=== PATIENT | male | born 1960 | race Caucasian/White ===

== ENCOUNTER 2017-11-29 09:07 | Day surgery (SDC) | END 2017-11-29 12:22 | disposition home or self-care (01) ==

== ENCOUNTER 2018-11-10 04:49 | Inpatient (IN) | payer OTHER ==
[~2018-11-10] VITALS: Ht 172.7 cm; Wt 70.2 kg
[~2018-11-10 04:49] MED LIST: LISI-313 PO; OMEP40CA6 PO; TEMA15CA PO
[2018-11-10] MEDS ORDERED: ONDANSETRON 4 MG INJ IV PRN ×2 (05:30→06:00)
[2018-11-10] MEDS ORDERED: ACETAMINOPHEN 325 MG TAB PO PRN (05:30)
[2018-11-10] MEDS ORDERED: NACL 0.9% 3 ML SYG IV SCH (06:00)
--- NOTE | 2018-11-10 06:15 | ERD ---
ER Documentation Chief Complaint Chief Complaint bib pa from er to er, direct admit, awaiting bed, sob, pna, atelectasis, HPI 58-year-old male transferred here from [place] emergency room for admission. He presented to them with a nonproductive cough for 3 weeks that was worsening. He reports mostly a dry cough. No associated chest pain, shortness of breath, fevers or chills. He has been having some associated night sweats. Denies any history of heart problems. ROS All systems reviewed and are negative except as per history of present illness. Medications Home Meds Reported Medications Temazepam* (Temazepam*) 15 Mg Capsule, 15 MG PO DAILY 11/22/13 Omeprazole* (Omeprazole*) 40 Mg Capsule.dr, 40 MG PO DAILY 11/22/13 Lisinopril* (Lisinopril*) 5 Mg Tablet, 5 MG PO DAILY 11/22/13 Allergies Allergies: Coded Allergies: No Known Allergy (Unverified , 11/22/13) PMhx/Soc History of Surgery: Yes (RIGHT SHOULDER X3) Anesthesia Reaction: No Hx Neurological Disorder: No Hx Respiratory Disorders: No Hx Cardiac Disorders: Yes (HTN) Hx Psychiatric Problems: No Hx Miscellaneous Medical Probl: No Hx Alcohol Use: Yes Hx Substance Use: No Hx Tobacco Use: Yes Smoking Status: Former smoker FmHx Family History: No diabetes Physical Exam Vitals Vital Signs Date Temp Pulse Resp B/P (MAP) Pulse Ox O2 O2 Flow FiO2 Time Delivery Rate 11/10/18 Nasal 4.0 05:09 Cannula 11/10/18 98.7 89 19 121/72 98 04:57 (88) Physical Exam Const: No acute distress Head: Atraumatic Eyes: Normal Conjunctiva ENT: Normal External Ears, Nose and Mouth. Neck: Full range of motion. No meningismus. Resp: Diminished breath sounds at the right lung base to the mid lung. No wheezing, rales, rhonchi. Clear left lung. Cardio: Regular rate and rhythm, no murmurs. 2+ distal pulses Abd: Soft, non tender, non distended. Normal bowel sounds Skin: No petechiae or rashes Back: No midline or flank tenderness Ext: No cyanosis, or edema Neur: Awake and alert Psych: Normal Mood and Affect Results 24 hrs Current Medications Medications Dose Sig/Rudy Start Time Status Last (Trade) Ordered Route PRN Stop Time Admin Dose Reason Admin Ondansetron 4 mg ER BRIDGE 11/10/18 HCl (Zofran PRN IV 05:30 Inj) NAUSEA/VOMITI 11/11/18 05:29 NG 650 mg ER BRIDGE 11/10/18 11/10/18 Acetaminophen PRN PO 05:30 05:27 (Tylenol .MILD PAIN 11/11/18 05:29 Tab) 1-3 OR TEMP IV Flush 3 ml PER 11/10/18 (NS 3 ml) PROTOCOL IV 06:00 Ondansetron 4 mg Q6H PRN 11/10/18 HCl (Zofran IV 06:00 Inj) NAUSEA/VOMITI NG 650 mg Q6H PRN 11/10/18 Acetaminophen PO .PAIN 1-3 06:00 (Tylenol OR TEMP Tab) Enoxaparin 40 mg DAILY SC 11/10/18 Sodium 09:00 (Lovenox) Albuterol/ 3 ml Q2H RESP 11/10/18 Ipratropium THERAPY PRN 06:00 (Duoneb) HHN SHORTNESS OF BREATH Lisinopril 5 mg DAILY PO 11/10/18 (Zestril) 09:00 40 mg DAILY PO 11/10/18 DC Miscellaneous 09:00 Information 11/10/18 09:00 40 mg DAILY@06 11/10/18 Pantoprazole PO 06:00 (Protonix Tab) Procedures/MDM Patient was sent here for admission for large right left pleural effusion I reviewed his workup done at the previous hospital. It seems that he had a right pleural effusion but also leukocytosis. Pneumonia was not suspected. I spoke with the admitting hospitalist, , who is aware of the patient and will admit to telemetry for further workup and management. Departure Diagnosis: Primary Impression: Pleural effusion, right Additional Impression: Leukocytosis Leukocytosis type: unspecified Qualified Codes: D72.829 - Elevated white blood cell count, unspecified Condition: Serious GREGG PALACIO MD Nov 10, 2018 06:15
[2018-11-10] MEDS: morphine 2 MG INJ IV PRN ×4 (08:18→22:08)
[2018-11-10 08:53] VITALS: BP 108/57; PULSE 85; RESP 18
[2018-11-10] MEDS ORDERED: LISINOPRIL 5 MG TAB PO SCH (09:00)
[2018-11-10] MEDS ORDERED: NON-FORMULARY/PATIENT OWN MED (Omeprazole* 40 MG) PO SCH (09:00)
[2018-11-10] MEDS ORDERED: ENOXAPARIN 40 MG/0.4 ML SYG SC SCH (09:00)
[2018-11-10] MEDS: PANTOPRAZOLE (EC) 40 MG TAB PO SCH (09:13)
--- NOTE | 2018-11-10 09:16 | HP ---
Date/Time of Note Date/Time of Note DATE: 11/10/18 TIME: 09:02 Assessment/Plan VTE Prophylaxis Pharmacological prophylaxis: NA/contraindicated Pharm contraindication: low risk/ambulating, other (Patient awaiting for a thoracentesis so no blood thinner for now) Lines/Catheters IV Catheter Type (from Nrs): Saline Lock Assessment/Plan Assessment/Plan 1. Shortness of breath, secondary to pleural effusion -Ultrasound-guided diagnostic and therapeutic thoracentesis has been ordered -Sample will be sent for infectious workup and also for cytology -Chest CT and a 2D echo 2. Hypertension: Continue home meds, adjust as needed 3. History of C-diff and tooth infection: No acute issue 4. Chronic back pain: Pain management Results 24hrs Laboratory Tests Test 11/10/18 06:11 11/10/18 07:13 Creatine Kinase 52 Creatine Kinase Index 0.5 Creatinine Kinase MB (Mass) 0.24 Troponin I < 0.012 Prothrombin Time 15.8 H Prothrombin Time Ratio 1.2 INR International Normalized Ratio 1.25 HPI/ROS Admit Date/Time Admit Date/Time Hx of Present Illness This is a 4-year-old male with a history of hypertension, chronic back pain, tooth infection and C-diff who presents an outside hospital complaining of cough. He was transferred to [facility] for insurance reasons. He said his cough started 3 months ago. It has been dry for the most part, but occasionally productive of small brownish sputum. No chest pain. Denied fever/chills, nausea/vomiting. He denied recent travel or sick contact. He said he has been jogging regularly and has not noticed shortness of breath or chest pain, although reports chest discomfort every time he coughs. Denied night sweats or weight loss. Chest x-ray at the outside facility shows sided pleural effusion. PMH/Family/Social Past Medical History Medical History: other (See HPI) Medications Current Medications Ondansetron HCl (Zofran Inj) 4 mg ER BRIDGE PRN IV NAUSEA/VOMITING; Start 11/10/18 at 05:30; Stop 11/11/18 at 05:29 Acetaminophen (Tylenol Tab) 650 mg ER BRIDGE PRN PO .MILD PAIN 1-3 OR TEMP Last administered on 11/10/18at 05:27; Admin Dose 650 MG; Start 11/10/18 at 05:30; Stop 11/11/18 at 05:29 IV Flush (NS 3 ml) 3 ml PER PROTOCOL IV ; Start 11/10/18 at 06:00 Ondansetron HCl (Zofran Inj) 4 mg Q6H PRN IV NAUSEA/VOMITING; Start 11/10/18 at 06:00 Acetaminophen (Tylenol Tab) 650 mg Q6H PRN PO .PAIN 1-3 OR TEMP; Start 11/10/18 at 06:00 Enoxaparin Sodium (Lovenox) 40 mg DAILY SC ; Start 11/10/18 at 09:00 Albuterol/ Ipratropium (Duoneb) 3 ml Q2H RESP THERAPY PRN HHN SHORTNESS OF BREATH; Start 11/10/18 at 06:00 Lisinopril (Zestril) 5 mg DAILY PO ; Start 11/10/18 at 09:00 Pantoprazole (Protonix Tab) 40 mg DAILY@06 PO ; Start 11/10/18 at 06:00 Morphine Sulfate (morphine) 2 mg Q4H PRN IV pain Last administered on 11/10/18at 08:18; Admin Dose 2 MG; Start 11/10/18 at 08:00 Coded Allergies: No Known Allergy (Unverified , 11/22/13) Past Surgical History Past Surgical Hx: other (See HPI) Family History Significant Family History: no pertinent family hx Social History Alcohol Use: none Smoking Status: Former smoker Drug Use: none Exam/Review of Systems Vital Signs Vitals Vital Signs Date Temp Pulse Resp B/P (MAP) Pulse Ox O2 O2 Flow FiO2 Time Delivery Rate 11/10/18 85 18 108/57 96 Room Air 08:53 (74) 11/10/18 98.7 4.0 06:30 Exam Constitutional: alert, oriented, well developed Head: normocephalic, atraumatic Eyes: EOMI, PERRL Respiratory: clear to auscultation, normal air movement Cardiovascular: regular rate and rhythm, nl pulses Gastrointestinal: soft, non-tender Extremities: normal pulses DONN MORE MD Nov 10, 2018 09:12
[2018-11-10] MEDS ORDERED: LISI-471 PO (10:27)
[2018-11-10] MEDS ORDERED: AMLO5TAB4 PO (10:28)
[2018-11-10] MEDS ORDERED: LEVO50TA7 PO (10:28)
[2018-11-10] MEDS ORDERED: LORA1TAB PO (10:30)
[2018-11-10] MEDS ORDERED: LORAZEPAM 2 MG INJ ONE (11:07)
[2018-11-10] MEDS ORDERED: LORAZEPAM 2 MG INJ IV ONE (11:30)
--- NOTE | 2018-11-10 12:15 | PN ---
Date/Time of Note Date/Time of Note DATE: 11/10/18 TIME: 12:12 Assessment/Plan VTE Prophylaxis SCD applied (from Nsg): Yes Pharmacological prophylaxis: NA/contraindicated Pharm contraindication: low risk/ambulating Lines/Catheters IV Catheter Type (from Nrsg): Saline Lock Assessment/Plan Hospital Course 1. Acute respiratory distress secondary to pleural effusion Ultrasound of chest shows small left pleural effusion and possible loculated right pleural effusion, thoracentesis unable to be done Follow-up on CT chest and 2D echo Pulmonary consultation obtained 2. Hypertension: Continue home meds, adjust as needed 3. History of C-diff and tooth infection: No acute issue 4. Chronic back pain: Pain management Prophylaxis: SCDs Subjective 24 Hr Interval Summary Constitutional: no complaints Exam/Review of Systems Exam Vitals Vital Signs Date Temp Pulse Resp B/P (MAP) Pulse Ox O2 O2 Flow FiO2 Time Delivery Rate 11/10/18 98.7 87 18 112/72 100 Nasal 4.0 09:13 (85) Cannula Constitutional: alert, oriented Respiratory: clear to auscultation Cardiovascular: regular rate and rhythm Gastrointestinal: soft; No distended Musculoskeletal: nl extremities to inspection Results Results 24hrs Laboratory Tests Test 11/10/18 06:11 11/10/18 07:13 Creatine Kinase 52 Creatine Kinase Index 0.5 Creatinine Kinase MB (Mass) 0.24 Troponin I < 0.012 Prothrombin Time 15.8 H Prothrombin Time Ratio 1.2 INR International Normalized Ratio 1.25 Medications Medication Current Medications Ondansetron HCl (Zofran Inj) 4 mg ER BRIDGE PRN IV NAUSEA/VOMITING; Start 11/10/18 at 05:30; Stop 11/11/18 at 05:29 Acetaminophen (Tylenol Tab) 650 mg ER BRIDGE PRN PO .MILD PAIN 1-3 OR TEMP Last administered on 11/10/18at 05:27; Admin Dose 650 MG; Start 11/10/18 at 05:30; Stop 11/11/18 at 05:29 IV Flush (NS 3 ml) 3 ml PER PROTOCOL IV ; Start 11/10/18 at 06:00 Ondansetron HCl (Zofran Inj) 4 mg Q6H PRN IV NAUSEA/VOMITING; Start 11/10/18 at 06:00 Acetaminophen (Tylenol Tab) 650 mg Q6H PRN PO .PAIN 1-3 OR TEMP; Start 11/10/18 at 06:00 Albuterol/ Ipratropium (Duoneb) 3 ml Q2H RESP THERAPY PRN HHN SHORTNESS OF BREATH; Start 11/10/18 at 06:00 Lisinopril (Zestril) 5 mg DAILY PO ; Start 11/10/18 at 09:00 Pantoprazole (Protonix Tab) 40 mg DAILY@06 PO Last administered on 11/10/18at 09:13; Admin Dose 40 MG; Start 11/10/18 at 06:00 Morphine Sulfate (morphine) 2 mg Q4H PRN IV pain Last administered on 11/10/18at 08:18; Admin Dose 2 MG; Start 11/10/18 at 08:00 SHANNON DUBOSE Nov 10, 2018 12:15
[2018-11-10] MEDS ORDERED: CEFTRIAXONE 1 GM/50 ML (PMX) 50 ML IVPB SCH (16:00)
[2018-11-10] MEDS: AZITHROMYCIN 500MG/NS (PMX) 250 ML IVPB SCH (17:13)
[2018-11-10 17:45] VITALS: BP 118/75; PULSE 106; RESP 18
[2018-11-10 18:48] VITALS: Ht 172.7 cm; Wt 70.2 kg
[2018-11-10] MEDS: ACETAMINOPHEN 325 MG TAB PO PRN (20:02)
[2018-11-10 20:09] VITALS: BP 115/65; PULSE 93
--- NOTE | 2018-11-10 20:27 | RADRPT ---
Echocardiogram Report Patient Name: SRINATH SMITHPatient ID: [id number] : 1960 (58y 7m)Study Date: 11/10/2018 7:07:46 AM Gender: MAccession #: [id number] Tech: Ellis Woods RDCS Location: [facility] Ref.Physician: DONN MORE Height(Cm): BSA: Weight(Kg): Quality: AdequateAccount #: Procedures: Echocardiographic Report: Transthoracic echocardiogram with complete 2D, M-Mode, and doppler examination. Indications: Pleural Effusion. Measurements: 2D/M Mode Doppler Measurement Value Normal Range Measurement Value Normal Range LVIDd 2D 4.3 [ 4.2 - 5.8 ] cm AV Peak Nithin 1.7 [ 100.0 - 170.0 ] cm/sec LVIDs 2D 1.8 [ 2.5 - 4.0 ] cm AV Peak PG 12.0 [ 2.0 - 9.0 ] mmHg LVPWd 2D 1.2 [ 0.6 - 1.0 ] cm LVOT Peak Nithin 1.3 [ 70.0 - 110.0 ] cm/sec IVSd 2D 1.2 [ 0.6 - 1.0 ] cm LVOT Peak PG 6.0 [ 2.0 - 6.0 ] mmHg AoR Diam 2D 3.3 [ 2.6 - 3.4 ] cm MV E Peak Nithin 1.0 [ 60.0 - 130.0 ] cm/sec EDV 2D 84.9 [ 62.0 - 150.0 ] ml MV A Peak Nithin 0.8 [ 100.0 - 120.0 ] cm/sec ESV 2D 9.0 [ 21.0 - 61.0 ] ml MV E/A 1.3 [ 0.8 - 1.5 ] ratio EF 2D 89.4 [ 52.0 - 72.0 ] percent MV Decel Time 134 [ 104 - 258 ] msec LA Dimen 2D 3.6 [ 3.0 - 4.0 ] cm MV E/A 1.3 [ 0.8 - 1.5 ] ratio TR Peak Nithin 2.3 [ 100.0 - 280.0 ] cm/sec TR Peak PG 22.0 mmHg RVSP 25.0 [ 10.0 - 36.0 ] mmHg RA Pressure 3.0 mmHg Findings: Left Ventricle: Normal left ventricular systolic function. Normal left ventricular cavity size. Normal left ventricular wall thickness. Ejection fraction is visually estimated at 65 %. Tissue Doppler/Mitral Doppler indices are within normal limits. Right Ventricle: Normal right ventricular size. Normal right ventricular systolic function. Left Atrium: The left atrium is normal in size. Right Atrium: The right atrium is normal in size. Mitral Valve: Mitral valve leaflets appear mildly thickened. Mild mitral annular calcification. Trace mitral regurgitation. Aortic Valve: Normal appearance of the aortic valve. No significant aortic stenosis or insufficiency. Tricuspid Valve: Normal appearance of the tricuspid valve. Estimated peak PA systolic pressure 25 mmHg. There is trace tricuspid regurgitation. Pulmonic Valve: Pulmonic valve not well visualized. Pericardium: Normal pericardium with no significant pericardial effusion. Aorta: Normal aortic root. IVC: Normal size and normal respiratory collapse consistent with normal right atrial pressure. Conclusions: Normal left ventricular systolic function. Normal left ventricular cavity size. Normal left ventricular wall thickness. Ejection fraction is visually estimated at 65 %. Tissue Doppler/Mitral Doppler indices are within normal limits. Mitral valve leaflets appear mildly thickened. Mild mitral annular calcification. Trace mitral regurgitation. Normal appearance of the tricuspid valve. Estimated peak PA systolic pressure 25 mmHg. There is trace tricuspid regurgitation. Electronically Signed By: Unruly Ivey 2018-11-10 20:27:30 PDT
[2018-11-10] MEDS: LORAZEPAM 1 MG TAB PO PRN (21:12)
[2018-11-11 02:07] VITALS: BP 107/62; PULSE 79; RESP 18
[2018-11-11] MEDS: morphine 2 MG INJ IV PRN ×6 (02:35→22:04)
[2018-11-11] MEDS: PANTOPRAZOLE (EC) 40 MG TAB PO SCH (06:27)
[2018-11-11] MEDS ORDERED: LORAZEPAM 1 MG TAB PO ONE ×2 (06:30)
[2018-11-11] MEDS: LEVOTHYROXINE 50 MCG TAB PO SCH ×2 (07:00→09:15)
[2018-11-11 07:49] VITALS: BP 114/65; PULSE 87; RESP 17
[2018-11-11] MEDS: LISINOPRIL 20 MG TAB PO SCH (09:14)
[2018-11-11] MEDS: AMLODIPINE 5 MG TAB PO SCH (09:14)
[2018-11-11] MEDS ORDERED: CEFEPIME 2GM/50 ML (PMX) 50 ML IVPB SCH (10:00)
--- NOTE | 2018-11-11 10:41 | PN ---
Date/Time of Note Date/Time of Note DATE: 11/11/18 TIME: 10:38 Assessment/Plan VTE Prophylaxis Risk score (from Ns)>0 risk: 2 SCD applied (from Ns): Yes Pharmacological prophylaxis: NA/contraindicated Pharm contraindication: low risk/ambulating Lines/Catheters IV Catheter Type (from [facility]): Saline Lock Urinary Cath still in place: No Assessment/Plan Hospital Course 1. Acute respiratory distress secondary to right-sided pneumonia with empyema Ultrasound of chest shows small left pleural effusion and possible loculated right pleural effusion, thoracentesis unable to be done CT chest is consistent with right-sided pneumonia and empyema Pulmonology, CT surgery and ID consultations obtained, patient may require VATS Cefepime and azithromycin Follow-up on HIV antibody name 2. Hypertension Continue home meds 3. History of C-diff and tooth infection No acute issue 4. Chronic back pain Pain management Prophylaxis: SCDs Result Diagram: 11/11/18 0445 11/11/18 0445 Results 24hrs Laboratory Tests Test 11/10/18 13:33 11/11/18 04:45 Sodium Level 139 140 Potassium Level 4.2 4.6 Chloride Level 102 103 Carbon Dioxide Level 26 27 Anion Gap 11 10 Blood Urea Nitrogen 31 H 25 H Creatinine 1.47 H 1.13 Est Glomerular Filtrat Rate mL/min 49 L > 60 Glucose Level 99 108 Calcium Level 9.2 9.3 Creatine Kinase 49 Creatine Kinase Index 0.6 Creatinine Kinase MB (Mass) 0.30 Troponin I < 0.012 White Blood Count 17.3 H Red Blood Count 3.84 L Hemoglobin 11.0 L Hematocrit 33.7 L Mean Corpuscular Volume 87.8 Mean Corpuscular Hemoglobin 28.6 L Mean Corpuscular Hemoglobin Concent 32.6 Red Cell Distribution Width 14.7 H Platelet Count 378 Mean Platelet Volume 10.2 Immature Granulocytes % 1.000 H Neutrophils % 83.3 H Lymphocytes % 6.8 L Monocytes % 7.6 Eosinophils % 1.0 Basophils % 0.3 Nucleated Red Blood Cells % 0.0 Immature Granulocytes # 0.170 H Neutrophils # 14.4 H Lymphocytes # 1.2 Monocytes # 1.3 H Eosinophils # 0.2 Basophils # 0.1 Nucleated Red Blood Cells # 0.0 Hemoglobin A1c 5.5 Magnesium Level 1.9 Total Bilirubin 0.4 Direct Bilirubin 0.00 Indirect Bilirubin 0.4 Aspartate Amino Transf (AST/SGOT) 24 Alanine Aminotransferase (ALT/SGPT) 20 Alkaline Phosphatase 202 H Total Protein 6.8 Albumin 3.2 L Globulin 3.60 H Albumin/Globulin Ratio 0.88 Triglycerides Level 95 Cholesterol Level 79 L LDL Cholesterol, Calculated 47 HDL Cholesterol 13 L Cholesterol/HDL Ratio 6.0 Thyroid Stimulating Hormone (TSH) 5.650 H Subjective 24 Hr Interval Summary Respiratory: cough Exam/Review of Systems Exam Vitals Vital Signs Date Temp Pulse Resp B/P (MAP) Pulse Ox O2 O2 Flow FiO2 Time Delivery Rate 11/11/18 98.5 87 17 114/65 95 Room Air 07:49 (81) 11/10/18 4.0 17:06 Intake and Output 11/10/18 11/10/18 11/11/18 1515:00 23:00 07:00 IntakeIntake Total 1020 ml 420 ml OutputOutput Total 450 ml 300 ml BalanceBalance 570 ml 120 ml Constitutional: alert, oriented Respiratory: clear to auscultation Cardiovascular: regular rate and rhythm Gastrointestinal: soft; No distended Musculoskeletal: nl extremities to inspection Results Results 24hrs Laboratory Tests Test 11/10/18 13:33 11/11/18 04:45 Sodium Level 139 140 Potassium Level 4.2 4.6 Chloride Level 102 103 Carbon Dioxide Level 26 27 Anion Gap 11 10 Blood Urea Nitrogen 31 H 25 H Creatinine 1.47 H 1.13 Est Glomerular Filtrat Rate mL/min 49 L > 60 Glucose Level 99 108 Calcium Level 9.2 9.3 Creatine Kinase 49 Creatine Kinase Index 0.6 Creatinine Kinase MB (Mass) 0.30 Troponin I < 0.012 White Blood Count 17.3 H Red Blood Count 3.84 L Hemoglobin 11.0 L Hematocrit 33.7 L Mean Corpuscular Volume 87.8 Mean Corpuscular Hemoglobin 28.6 L Mean Corpuscular Hemoglobin Concent 32.6 Red Cell Distribution Width 14.7 H Platelet Count 378 Mean Platelet Volume 10.2 Immature Granulocytes % 1.000 H Neutrophils % 83.3 H Lymphocytes % 6.8 L Monocytes % 7.6 Eosinophils % 1.0 Basophils % 0.3 Nucleated Red Blood Cells % 0.0 Immature Granulocytes # 0.170 H Neutrophils # 14.4 H Lymphocytes # 1.2 Monocytes # 1.3 H Eosinophils # 0.2 Basophils # 0.1 Nucleated Red Blood Cells # 0.0 Hemoglobin A1c 5.5 Magnesium Level 1.9 Total Bilirubin 0.4 Direct Bilirubin 0.00 Indirect Bilirubin 0.4 Aspartate Amino Transf (AST/SGOT) 24 Alanine Aminotransferase (ALT/SGPT) 20 Alkaline Phosphatase 202 H Total Protein 6.8 Albumin 3.2 L Globulin 3.60 H Albumin/Globulin Ratio 0.88 Triglycerides Level 95 Cholesterol Level 79 L LDL Cholesterol, Calculated 47 HDL Cholesterol 13 L Cholesterol/HDL Ratio 6.0 Thyroid Stimulating Hormone (TSH) 5.650 H Medications Medication Current Medications IV Flush (NS 3 ml) 3 ml PER PROTOCOL IV ; Start 11/10/18 at 06:00 Ondansetron HCl (Zofran Inj) 4 mg Q6H PRN IV NAUSEA/VOMITING; Start 11/10/18 at 06:00 Acetaminophen (Tylenol Tab) 650 mg Q6H PRN PO .PAIN 1-3 OR TEMP Last administered on 11/10/18 20:02; Admin Dose 650 MG; Start 11/10/18 at 06:00 Albuterol/ Ipratropium (Duoneb) 3 ml Q2H RESP THERAPY PRN HHN SHORTNESS OF BREATH; Start 11/10/18 at 06:00 Pantoprazole (Protonix Tab) 40 mg DAILY@06 PO Last administered on 11/11/18 06:27; Admin Dose 40 MG; Start 11/10/18 at 06:00 Morphine Sulfate (morphine) 2 mg Q4H PRN IV pain Last administered on 11/11/18 10:09; Admin Dose 2 MG; Start 11/10/18 at 08:00 Azithromycin 250 ml @ 250 mls/hr Q24H IVPB Last administered on 11/10/18 17:13; Admin Dose 250 MLS/HR; Start 11/10/18 at 15:00 Amlodipine Besylate (Norvasc) 5 mg DAILY PO Last administered on 11/11/18 0 9:14; Admin Dose 5 MG; Start 11/11/18 at 09:00 Levothyroxine Sodium (Synthroid) 50 mcg BEFORE BREAKFAST PO Last administered on 11/11/18 09:15; Admin Dose 50 MCG; Start 11/11/18 at 07:00 Lisinopril (Zestril) 20 mg DAILY PO Last administered on 11/11/18 09:14; Admin Dose 20 MG; Start 11/11/18 at 09:00 Lorazepam (Ativan) 1 mg HS PRN PO ANXIETY Last administered on 11/10/18at 21:12; Admin Dose 1 MG; Start 11/10/18 at 15:00 Cefepime HCl 50 ml @ 100 mls/hr Q12 IVPB ; Start 11/11/18 at 10:00 SHANNON DUBOSE Nov 11, 2018 10:41
[2018-11-11] MEDS: SOD CHLORIDE 0.9% 1,000 ML IV SCH ×3 (11:02→22:24)
--- NOTE | 2018-11-11 12:57 | CONS ---
DATE OF ADMISSION: 11/10/2018 DATE OF CONSULTATION: 11/11/2018 TYPE OF CONSULTATION: Infectious Disease. REASON FOR CONSULTATION: Antibiotic management. HISTORY OF PRESENT ILLNESS: Woo Rainey is a 58-year-old male who is transferred from [facility] Emergency Room with a nonproductive cough for 3 weeks' duration that has been worsening. The cough is dry. He has no chest pain or shortness of breath, fever or chills. He does have associated nigh t sweats. PAST PROBLEMS INCLUDE: 1. Hypertension. 2. Right shoulder surgery x3. PAST MEDICAL HISTORY: As outlined. FAMILY HISTORY: Noncontributory. SOCIAL HISTORY: He is a former smoker. He drinks alcohol and does not abuse drugs. ALLERGIES: NONE TO PENICILLIN, SULFA OR FOODS. MEDICATIONS: Per chart. REVIEW OF SYSTEMS: Noncontributory. PHYSICAL EXAMINATION: GENERAL: The patient is a well-developed, well-nourished male, alert, responsive, in no acute distre ss. VITAL SIGNS: Stable. He is afebrile. SKIN: Without generalized rash. HEENT: Within normal limits. NECK: Supple. LYMPH NODES: None palpable. CHEST: Decreased breath sounds at the bases. HEART: Without murmur or gallop. ABDOMEN: Soft, nontender, without organosplenomegaly or masses. EXTREMITIES: Without cyanosis, clubbing, or edema. RECTAL AND GENITAL: Deferred. NEUROLOGIC: No focal neurological abnormality. HOSPITAL COURSE: Patient has a white count of 17.3, H and H of 11 and 33.7, platelet count of 378,00 0. BUN and creatinine are 25/1.13. Chest x-ray shows large loculated right pleural effusion with ne ar diffuse lung airspace opacities representing atelectasis or pneumonia. A CT scan of the chest claudy ws moderate right-sided loculated complex pleural fluid concerning for empyema, large area of dense c onsolidation within the right lower lobe concerning for pneumonia. Minimal left pleural effusion wit h adjacent atelectasis, scattered ill-defined pulmonary nodules, small areas of ground glass opacitie s likely representing infectious inflammatory changes, mild paraseptal emphysema in the lung apices. Scattered and aortic and coronary artery vascular calcifications. Patient was felt to have acute re spiratory distress secondary to right-sided pneumonia with empyema. Ultrasound of the chest shows sm all left pleural effusion, possible loculated right pleural effusion, thoracentesis unable to be done . CT chest, right-sided pneumonia and empyema. The patient is on cefepime and azithromycin. Follow up on HIV antibody is being done. The patient may require VATS. He has a history of Clostridium an d tooth infection. As noted, his white count is 17.3. PHYSICAL EXAMINATION: GENERAL: He is in no acute distress. VITAL SIGNS: Stable. He is afebrile. SKIN: Without generalized rash. HEENT: Within normal limits. NECK: Supple. LYMPH NODES: None palpable. CHEST: Decreased breath sounds at the bases, right greater than left. HEART: Without murmur or gallop. ABDOMEN: Soft, nontender, without organosplenomegaly or masses. EXTREMITIES: Without cyanosis, clubbing, or edema. RECTAL AND GENITAL: Deferred. NEUROLOGICAL EVALUATION: No focal neurological abnormality. IMPRESSION AND PLAN: The patient comes in now with what appears to be a right-sided pneumonia with p leural effusion and probable empyema. He is currently on cefepime and azithromycin. We will continu e him on this current regimen. HIV antibody has been ordered. He should get 2 sets of blood culture s and a sputum culture and urine culture. I will dictate my findings to the hospitalist. Dictated By: AMY PEÑA MD, JD/ANNE Conf#: [id number] DID#: [id number] CC: DONN MORE MD;*End*
--- NOTE | 2018-11-11 12:59 | CONS ---
DATE OF ADMISSION: 11/10/2018 DATE OF CONSULTATION: 11/11/2018 TYPE OF CONSULTATION: Pulmonary. REASON FOR CONSULT: Lung mass. HISTORY OF PRESENT ILLNESS: This is a 58-year-old gentleman who states for the last month he has bee n experiencing right-sided pleuritic chest pain, some chest discomfort, and occasional cough. States he had upper respiratory tract infection approximately one month ago, was seen in the emergency room , was not prescribed antibiotics at that time. Represents at this time with worsening symptoms. CT of the chest was performed and demonstrated large loculated right pleural effusion with some compress north atelectasis. PAST MEDICAL HISTORY: As above. SOCIAL HISTORY: He has a remote tobacco history. No history of alcohol abuse. SYSTEMS REVIEW: A 12-point review of systems was negative other than that mentioned above. PHYSICAL EXAMINATION: GENERAL: Well-nourished, well-developed gentleman, comfortable at rest, talking in full and complete sentences. VITAL SIGNS: Currently afebrile, pulse is 87, blood pressure 114/65, O2 saturation 95% on room air. NECK: Supple. No JVD or lymphadenopathy. CARDIAC: S1, S2, no added sounds or murmurs. CHEST: Diminished air entry right lung. ABDOMEN: Soft, nontender. No guarding or rebound. EXTREMITIES: No cyanosis, clubbing, edema. NEUROLOGIC: Generalized weakness. DIAGNOSTIC DATA: CT chest demonstrates loculated right effusion consistent with empyema, apical emph ysematous changes. IMPRESSION AND PLAN: Empyema with loculated effusion. Will require video-assisted thorascopic surge ry for decortication. In the meantime, the patient should continue with broad-spectrum antibiotics. I have contacted thoracic surgery for evaluation. Discussed plan of care with patient at length. Dictated By: LORI CASTLE/ANNE Conf#: [id number] DID#: [id number]
[2018-11-11 14:22] VITALS: BP 111/62; PULSE 91; RESP 17
[2018-11-11] MEDS: AZITHROMYCIN 500MG/NS (PMX) 250 ML IVPB SCH (15:59)
--- NOTE | 2018-11-11 16:40 | CONS ---
Assessment/Plan Assessment/Plan Hospital Course (Demo Recall) ID PROGRESS NOTE CURRENT ABX: DAY #2 => Azith + Cefepime s/p Ceftriaxone 11/11/18 0445 11/11/18 0445 24H INTERVAL SUMMARY * Awake, alert, responsive, without dyspnea at rest on room air * Fevers resolved, WBC elevated, (+)right sided pleuritic pain worse w/coughing * Denies current GERD -- he is on PPI without sxs * Tells me he is a heterosexual w/infrequent unprotected sex, has tested (- )HIV/HBV/HCV in past more than once -- He gives me verbal consent to check HIV screening DIAGNOSTIC IMAGING * 11/11/18 CXR: Large loculated right pleural effusion with near diffuse right lung air space opacities representing atelectasis or pneumonia. * 11/10/18 CT CHEST: * 1. Moderate right-sided loculated complex pleural fluid concerning for empyema. * 2. Large area of dense consolidation within the right lower lobe concerning for pneumonia. * 3. Minimal left pleural effusion with adjacent atelectasis. * 4. Scattered ill-defined pulmonary nodules and small areas of ground-glass opacities likely representing infectious/inflammatory changes. * 5. Mild paraseptal emphysema in the lung apices. * 6. Scattered aortic and coronary artery vascular calcifications. MICRO/OTHER * N/A PHYSICAL EXAMINATION: GENERAL: VSS, NAD HEENT: AT, NC, anicteric, NECK: Supple, CHEST: Equal chest rise bilaterally, without dyspnea on observation HEART: Pulse RRR ABDOMEN: Soft / NT EXTREMITIES: Warm, dry SKIN: No rash, no diaphoresis ID ASSESSMENT 58 yo M admit with: Sepsis secondary to right lung pneumonia and empyema Acute respiratory distress secondary to right-sided pneumonia with empyema * Ultrasound of chest shows small left pleural effusion and possible loculated right pleural effusion, thoracentesis unable to be done CT chest is consistent with right-sided pneumonia and empyema * Patient may require VATS Acute kidney injury secondary to sepsis-improved HTN GERD w/Hx of Erosive esophagitis and nodular gastritis on EGD NOVEMBER 2017 * Risk factor for silent aspiration - however patient denies current sxs of GERD on PPI Former tobacco user -- ?COPD ABX ALLERGIES: KNDA INVASIVES: PI CURRENT ABX: DAY #2 => Azith + Cefepime s/p Ceftriaxone ID RECOMMENDATIONS/PLAN: 1. Change Cefepime to MERREM -- need anaerobic coverage for concern empyema 2. Change Azith to Doxycycline: RATIONALE: Doxy will cover both Atypical + MDRO Staph organisms. 3. Swab nares for MRSA -- if (+) add Vanco IV 4. Send serology for Mycoplasma PNA AG, cocci 5. Tells me he is a heterosexual w/infrequent unprotected sex, has tested (- )HIV/HBV/HCV in past more than once -- He gives me verbal consent to check HIV screening 6. Concur with CT surgeon assessment for VATS . Consultation Date/Type/Reason Admit Date/Time Nov 10, 2018 at 05:13 Initial Consult Date Date/Time of Note DATE: 11/11/18 TIME: 16:40 Exam/Review of Systems Exam Vitals Vital Signs Date Temp Pulse Resp B/P (MAP) Pulse Ox O2 O2 Flow FiO2 Time Delivery Rate 11/11/18 99.5 91 17 111/62 95 Room Air 14:22 (78) 11/10/18 4.0 17:06 Intake and Output 11/10/18 11/10/18 11/11/18 1515:00 23:00 07:00 IntakeIntake Total 1020 ml 420 ml OutputOutput Total 450 ml 300 ml BalanceBalance 570 ml 120 ml Results Result Diagram: 11/11/18 0445 11/11/18 0445 Results 24hrs Laboratory Tests Test 11/11/18 04:45 White Blood Count 17.3 H Red Blood Count 3.84 L Hemoglobin 11.0 L Hematocrit 33.7 L Mean Corpuscular Volume 87.8 Mean Corpuscular Hemoglobin 28.6 L Mean Corpuscular Hemoglobin Concent 32.6 Red Cell Distribution Width 14.7 H Platelet Count 378 Mean Platelet Volume 10.2 Immature Granulocytes % 1.000 H Neutrophils % 83.3 H Lymphocytes % 6.8 L Monocytes % 7.6 Eosinophils % 1.0 Basophils % 0.3 Nucleated Red Blood Cells % 0.0 Immature Granulocytes # 0.170 H Neutrophils # 14.4 H Lymphocytes # 1.2 Monocytes # 1.3 H Eosinophils # 0.2 Basophils # 0.1 Nucleated Red Blood Cells # 0.0 Sodium Level 140 Potassium Level 4.6 Chloride Level 103 Carbon Dioxide Level 27 Anion Gap 10 Blood Urea Nitrogen 25 H Creatinine 1.13 Est Glomerular Filtrat Rate mL/min > 60 Glucose Level 108 Hemoglobin A1c 5.5 Calcium Level 9.3 Magnesium Level 1.9 Total Bilirubin 0.4 Direct Bilirubin 0.00 Indirect Bilirubin 0.4 Aspartate Amino Transf (AST/SGOT) 24 Alanine Aminotransferase (ALT/SGPT) 20 Alkaline Phosphatase 202 H Total Protein 6.8 Albumin 3.2 L Globulin 3.60 H Albumin/Globulin Ratio 0.88 Triglycerides Level 95 Cholesterol Level 79 L LDL Cholesterol, Calculated 47 HDL Cholesterol 13 L Cholesterol/HDL Ratio 6.0 Thyroid Stimulating Hormone (TSH) 5.650 H Medications Medication Current Medications IV Flush (NS 3 ml) 3 ml PER PROTOCOL IV ; Start 11/10/18 at 06:00 Ondansetron HCl (Zofran Inj) 4 mg Q6H PRN IV NAUSEA/VOMITING; Start 11/10/18 at 06:00 Acetaminophen (Tylenol Tab) 650 mg Q6H PRN PO .PAIN 1-3 OR TEMP Last administered on 11/10/18 20:02; Admin Dose 650 MG; Start 11/10/18 at 06:00 Albuterol/ Ipratropium (Duoneb) 3 ml Q2H RESP THERAPY PRN HHN SHORTNESS OF BIN ATH; Start 11/10/18 at 06:00 Pantoprazole (Protonix Tab) 40 mg DAILY@06 PO Last administered on 11/11/18 06:27; Admin Dose 40 MG; Start 11/10/18 at 06:00 Azithromycin 250 ml @ 250 mls/hr Q24H IVPB Last administered on 11/11/18 15:59; Admin Dose 250 MLS/HR; Start 11/10/18 at 15:00 Amlodipine Besylate (Norvasc) 5 mg DAILY PO Last administered on 11/11/18 09:14; Admin Dose 5 MG; Start 11/11/18 at 09:00 Levothyroxine Sodium (Synthroid) 50 mcg BEFORE BREAKFAST PO Last administered on 11/11/18 09:15; Admin Dose 50 MCG; Start 11/11/18 at 07:00 Lisinopril (Zestril) 20 mg DAILY PO Last administered on 11/11/18 09:14; Admin Dose 20 MG; Start 11/11/18 at 09:00 Lorazepam (Ativan) 1 mg HS PRN PO ANXIETY Last administered on 4/12/19at 21:12; Admin Dose 1 MG; Start 11/10/18 at 15:00 Cefepime HCl 50 ml @ 100 mls/hr Q12 IVPB Last administered on 11/11/18at 11:01; Admin Dose 100 MLS/HR; Start 11/11/18 at 10:00 Sodium Chloride 1,000 ml @ 100 mls/hr Q10H IV Last administered on 11/11/18at 1 1:02; Admin Dose 100 MLS/HR; Start 11/11/18 at 11:00 Morphine Sulfate (morphine) 2 mg Q3H PRN IV pain Last administered on 11/11/18 16:03; Admin Dose 2 MG; Start 11/11/18 at 12:00 ROJELIO MUÑOZ NP Nov 11, 2018 16:40
[2018-11-11] MEDS: LORAZEPAM 1 MG TAB PO PRN (19:50)
[2018-11-11] MEDS: ACETAMINOPHEN 325 MG TAB PO PRN (19:50)
[2018-11-11 19:59] VITALS: BP 121/71; PULSE 88; RESP 18
[2018-11-11] MEDS: DOXYCYCLINE 100 MG in SOD CHLORIDE 0.9% 250 ML IVPB SCH (20:53)
[2018-11-11] MEDS: MEROPENEM 1 GM/50ML(PMX) 50 ML IVPB SCH (22:09)
[2018-11-12] VITALS (14 sets, daily range): BP systolic 77–131; BP diastolic 49–75; PULSE 84–106; RESP 12–22
[2018-11-12] MEDS: ALBUTEROL/IPRATROPIUM (NEB) 3 ML AMP HHN PRN ×3 (00:22→11:51)
[2018-11-12] MEDS: morphine 2 MG INJ IV PRN ×4 (01:06→10:01)
[2018-11-12] MEDS: PANTOPRAZOLE (EC) 40 MG TAB PO SCH (05:03)
[2018-11-12] MEDS: MEROPENEM 1 GM/50ML(PMX) 50 ML IVPB SCH ×3 (05:03→22:02)
[2018-11-12] MEDS: LEVOTHYROXINE 50 MCG TAB PO SCH (06:59)
[2018-11-12] MEDS: SOD CHLORIDE 0.9% 1,000 ML IV SCH ×2 (06:59→17:00)
[2018-11-12] MEDS ORDERED: SUGAMMADEX SODIUM 200 MG/2 ML VIAL IV ONE (07:00)
[2018-11-12] MEDS ORDERED: SUCCINYLCHOLINE CHLORIDE 100 MG/5 ML SYG IV ONE (07:00)
[2018-11-12] MEDS ORDERED: DESFLURANE 15 MIN ONE (07:00)
[2018-11-12] MEDS: DOXYCYCLINE 100 MG in SOD CHLORIDE 0.9% 250 ML IVPB SCH ×2 (08:42→22:02)
[2018-11-12] MEDS: LISINOPRIL 20 MG TAB PO SCH (08:43)
[2018-11-12] MEDS: AMLODIPINE 5 MG TAB PO SCH (08:44)
--- NOTE | 2018-11-12 11:58 | CONS ---
Consult Date/Type/Reason Admit Date/Time Nov 10, 2018 at 05:13 Initial Consult Date Type of Consult Pulmonary Date/Time of Note DATE: 11/12/18 TIME: 11:55 Subjective Complaining of right-sided pleuritic chest pain. Objective Vital Signs Date Temp Pulse Resp B/P (MAP) Pulse Ox O2 O2 Flow FiO2 Time Delivery Rate 11/12/18 77 20 92 21 11:53 11/12/18 98.6 131/75 08:00 (93) 11/12/18 Nasal 2.0 05:06 Cannula Intake and Output 11/11/18 11/11/18 11/12/18 1515:00 23:00 07:00 IntakeIntake Total 1570 ml 2030 ml 750 ml OutputOutput Total 600 ml 100 ml BalanceBalance 1570 ml 1430 ml 650 ml Exam GENERAL: Well-nourished well-developed gentleman comfortable at rest no acute distress VITAL SIGNS: per chart NECK: Supple. No JVD or lymphadenopathy. CARDIAC EXAM: S1, S2. No added sounds or murmurs. CHEST: Diminished air entry right base. ABDOMEN: Soft, nontender. No guarding or rebound. EXTREMITIES: No cyanosis, clubbing or edema. NEUROLOGIC: Generalized weakness. No focal deficits. Vent Setting Fraction of Inspired Oxygen pe: 21 Results/Medications Result Diagram: 11/12/184 11/12/184 Results 24 hrs Laboratory Tests Test 11/12/18 04:53 11/12/18 04:54 HIV (1&2) Antibody NEGATIVE White Blood Count 17.1 H Red Blood Count 3.38 L Hemoglobin 9.7 L Hematocrit 28.7 L Mean Corpuscular Volume 84.9 Mean Corpuscular Hemoglobin 28.7 L Mean Corpuscular Hemoglobin Concent 33.8 Red Cell Distribution Width 14.6 H Platelet Count 375 Mean Platelet Volume 9.9 Immature Granulocytes % 0.700 H Neutrophils % 85.4 H Lymphocytes % 6.1 L Monocytes % 6.6 Eosinophils % 1.0 Basophils % 0.2 Nucleated Red Blood Cells % 0.0 Immature Granulocytes # 0.120 H Neutrophils # 14.6 H Lymphocytes # 1.1 Monocytes # 1.1 H Eosinophils # 0.2 Basophils # 0.0 Nucleated Red Blood Cells # 0.0 Sodium Level 138 Potassium Level 4.2 Chloride Level 107 Carbon Dioxide Level 23 Anion Gap 8 Blood Urea Nitrogen 15 # Creatinine 0.86 Est Glomerular Filtrat Rate mL/min > 60 Glucose Level 111 Calcium Level 8.6 Magnesium Level 1.7 Medications Current Medications IV Flush (NS 3 ml) 3 ml PER PROTOCOL IV ; Start 11/10/18 at 06:00 Ondansetron HCl (Zofran Inj) 4 mg Q6H PRN IV NAUSEA/VOMITING; Start 11/10/18 at 06:00 Acetaminophen (Tylenol Tab) 650 mg Q6H PRN PO .PAIN 1-3 OR TEMP Last admin istered on 11/11/18 19:50; Admin Dose 650 MG; Start 11/10/18 at 06:00 Albuterol/ Ipratropium (Duoneb) 3 ml Q2H RESP THERAPY PRN HHN SHORTNESS OF BREATH Last administered on 11/12/18 11:51; Admin Dose 3 ML; Start 11/10/18 at 06:00 Pantoprazole (Protonix Tab) 40 mg DAILY@06 PO Last administered on 11/12/18 05:03; Admin Dose 40 MG; Start 11/10/18 at 06:00 Amlodipine Besylate (Norvasc) 5 mg DAILY PO Last administered on 11/12/18 08:44; Admin Dose 5 MG; Start 11/11/18 at 09:00 Levothyroxine Sodium (Synthroid) 50 mcg BEFORE BREAKFAST PO Last administered on 11/12/18 06:59; Admin Dose 50 MCG; Start 11/11/18 at 07:00 Lisinopril (Zestril) 20 mg DAILY PO Last administered on 11/12/18 08:43; Admin Dose 20 MG; Start 11/11/18 at 09:00 Lorazepam (Ativan) 1 mg HS PRN PO ANXIETY Last administered on 11/11/18 19:50; Admin Dose 1 MG; Start 11/10/18 at 15:00 Sodium Chloride 1,000 ml @ 100 mls/hr Q10H IV Last administered on 11/11/18 22:24; Admin Dose 100 MLS/HR; Start 11/11/18 at 11:00 Morphine Sulfate (morphine) 2 mg Q3H PRN IV pain Last administered on 11/12/18 10:01; Admin Dose 2 MG; Start 11/11/18 at 12:00 Meropenem/Sodium Chloride 50 ml @ 100 mls/hr Q8 IVPB Last administered on 11/12/18at 05:03; Admin Dose 100 MLS/HR; Start 11/11/18 at 22:00 Doxycycline Hyclate 100 mg/ Sodium Chloride 250 ml @ 250 mls/hr Q12 IVPB Last administered on 11/12/18at 08:42; Admin Dose 250 MLS/HR; Start 11/11/18 at 21:00 Assessment/Plan Hospital Course (Demo Recall) Assessment 1. Loculated right pleural effusion probable empyema. 2. Persistent leukocytosis 3. Right-sided pleuritic chest pain secondary to above Plan 1. Thoracic surgery evaluation Dr. Dickey will kindly review 2. Incentive spirometry encourage out of bed 3. Continue current antibiotics LORI VÁZQUEZ MD, [facility] Nov 12, 2018 11:58
--- NOTE | 2018-11-12 12:50 | CONS ---
Assessment/Plan Assessment/Plan Assessment/Plan (Daily) 58 year old with loculated empyema. I explained options of pigtail and tpa vs surgical decortication. He wants to proceed with the quickest and most definitive procedure. I explained the risks are but not limited to bleeding, infection, recurrence, chronic pain. He understands and consents Consultation Date/Type/Reason Admit Date/Time Nov 10, 2018 at 05:13 Date of Consultation: Nov 12, 2018 Type of Consult THORACIC SURGERY Reason for Consultation [id number] Requesting Provider: LORI VÁZQUEZ MD, [facility] Date/Time of Note DATE: 11/12/18 TIME: 12:44 Hx of Present Illness 58 year old male with 1 month history of SOB and cough and increasing pain over last [address] show large loculated right pleural effusion. Patient has leukocytosis. Asked to see regarding empyema. Constitutional: febrile, poor po Eyes: no complaints ENT: no complaints Respiratory: pain, cough, pleuritic pain, shortness of breath, sputum Cardiovascular: no complaints Gastrointestinal: no complaints Genitourinary: no complaints Musculoskeletal: no complaints Skin: no complaints Neurologic: no complaints Endocrine: no complaints Lymphatic: no complaints Psychological: no complaints, nl mood/affect Immunologic: no complaints Past Medical History Medical History: no pertinent history, other (See HPI) Home Meds Reported Medications Lorazepam* (Lorazepam*) 1 Mg Tablet, 1 MG PO HS PRN for ANXIETY, #30 TAB 11/10/18 Amlodipine Besylate* (Norvasc*) 5 Mg Tablet, 5 MG PO DAILY, TAB 11/10/18 Levothyroxine Sodium* (Levothyroxine Sodium*) 50 Mcg Tablet, 50 MCG PO BEFORE BREAKFAST, #30 TAB 11/10/18 Lisinopril* (Lisinopril*) 20 Mg Tablet, 20 MG PO DAILY, #30 TAB 11/10/18 Omeprazole* (Omeprazole*) 40 Mg Capsule.dr, 40 MG PO DAILY 11/22/13 Discontinued Reported Medications Temazepam* (Temazepam*) 15 Mg Capsule, 15 MG PO DAILY 11/22/13 Lisinopril* (Lisinopril*) 5 Mg Tablet, 5 MG PO DAILY 11/22/13 Medications Current Medications IV Flush (NS 3 ml) 3 ml PER PROTOCOL IV ; Start 11/10/18 at 06:00 Ondansetron HCl (Zofran Inj) 4 mg Q6H PRN IV NAUSEA/VOMITING Last administered on 11/12/18 12:35; Admin Dose 4 MG; Start 11/10/18 at 06:00 Acetaminophen (Tylenol Tab) 650 mg Q6H PRN PO .PAIN 1-3 OR TEMP Last administered on 11/11/18 19:50; Admin Dose 650 MG; Start 11/10/18 at 06:00 Albuterol/ Ipratropium (Duoneb) 3 ml Q2H RESP THERAPY PRN HHN SHORTNESS OF BREATH Last administered on 11/12/18 11:51; Admin Dose 3 ML; Start 11/10/18 at 06:00 Pantoprazole (Protonix Tab) 40 mg DAILY@06 PO Last administered on 11/12/18 05:03; Admin Dose 40 MG; Start 11/10/18 at 06:00 Amlodipine Besylate (Norvasc) 5 mg DAILY PO Last administered on 11/12/18 08:44; Admin Dose 5 MG; Start 11/11/18 at 09:00 Levothyroxine Sodium (Synthroid) 50 mcg BEFORE BREAKFAST PO Last administered on 11/12/18 06:59; Admin Dose 50 MCG; Start 11/11/18 at 07:00 Lisinopril (Zestril) 20 mg DAILY PO Last administered on 11/12/18 08:43; Admin Dose 20 MG; Start 11/11/18 at 09:00 Lorazepam (Ativan) 1 mg HS PRN PO ANXIETY Last administered on 11/11/18 19:50; Admin Dose 1 MG; Start 11/10/18 at 15:00 Sodium Chloride 1,000 ml @ 100 mls/hr Q10H IV Last administered on 11/11/18 22:24; Admin Dose 100 MLS/HR; Start 11/11/18 at 11:00 Meropenem/Sodium Chloride 50 ml @ 100 mls/hr Q8 IVPB Last administered on 11/12/18 05:03; Admin Dose 100 MLS/HR; Start 11/11/18 at 22:00 Doxycycline Hyclate 100 mg/ Sodium Chloride 250 ml @ 250 mls/hr Q12 IVPB Last administered on 11/12/18 08:42; Admin Dose 250 MLS/HR; Start 11/11/18 at 21:00 Morphine Sulfate (morphine) 2 mg Q4 IV ; Start 11/12/18 at 13:00 Allergies: Coded Allergies: No Known Allergy (Unverified , 11/10/18) Past Surgical History Past Surgical Hx: other (right shoulder surgery) Family History Significant Family History: no pertinent family hx Social History Alcohol Use: none Smoking Status: Former smoker Drug Use: none Exam/Review of Systems Exam Vitals Vital Signs Date Temp Pulse Resp B/P (MAP) Pulse Ox O2 O2 Flow FiO2 Time Delivery Rate 11/12/18 77 20 92 21 11:53 11/12/18 98.6 131/75 08:00 (93) 11/12/18 Nasal 2.0 05:06 Cannula Intake and Output 11/11/18 11/11/18 11/12/18 1515:00 23:00 07:00 IntakeIntake Total 1570 ml 2030 ml 750 ml OutputOutput Total 600 ml 100 ml BalanceBalance 1570 ml 1430 ml 650 ml Constitutional: alert, oriented, well developed Psych: no complaints, nl mood/affect Head: normocephalic, atraumatic Eyes: nl conjunctiva, EOMI, nl lids, nl sclera, PERRL ENMT: nl external ears & nose, nl lips & teeth, nl nasal mucosa & septum Neck: supple, non-tender Respiratory: diminished breath sounds Cardiovascular: regular rate and rhythm, nl pulses Gastrointestinal: soft, nl liver, spleen, non-tender Musculoskeletal: nl extremities to inspection, nl gait and stance Extremities: normal pulses Neurological: SV[employer] II-XII intact, nl mental status, nl speech, nl strength Skin: nl turgor; No rash or lesions Lymph: nl lymph nodes Results Result Diagram: 11/12/18 0454 11/12/18 0454 Results 24hrs Laboratory Tests Test 11/12/18 04:53 11/12/18 04:54 HIV (1&2) Antibody NEGATIVE White Blood Count 17.1 H Red Blood Count 3.38 L Hemoglobin 9.7 L Hematocrit 28.7 L Mean Corpuscular Volume 84.9 Mean Corpuscular Hemoglobin 28.7 L Mean Corpuscular Hemoglobin Concent 33.8 Red Cell Distribution Width 14.6 H Platelet Count 375 Mean Platelet Volume 9.9 Immature Granulocytes % 0.700 H Neutrophils % 85.4 H Lymphocytes % 6.1 L Monocytes % 6.6 Eosinophils % 1.0 Basophils % 0.2 Nucleated Red Blood Cells % 0.0 Immature Granulocytes # 0.120 H Neutrophils # 14.6 H Lymphocytes # 1.1 Monocytes # 1.1 H Eosinophils # 0.2 Basophils # 0.0 Nucleated Red Blood Cells # 0.0 Sodium Level 138 Potassium Level 4.2 Chloride Level 107 Carbon Dioxide Level 23 Anion Gap 8 Blood Urea Nitrogen 15 # Creatinine 0.86 Est Glomerular Filtrat Rate mL/min > 60 Glucose Level 111 Calcium Level 8.6 Magnesium Level 1.7 Medications Medication Current Medications IV Flush (NS 3 ml) 3 ml PER PROTOCOL IV ; Start 11/10/18 at 06:00 Ondansetron HCl (Zofran Inj) 4 mg Q6H PRN IV NAUSEA/VOMITING Last administered on 11/12/18 12:35; Admin Dose 4 MG; Start 11/10/18 at 06:00 Acetaminophen (Tylenol Tab) 650 mg Q6H PRN PO .PAIN 1-3 OR TEMP Last administered on 11/11/18 19:50; Admin Dose 650 MG; Start 11/10/18 at 06:00 Albuterol/ Ipratropium (Duoneb) 3 ml Q2H RESP THERAPY PRN HHN SHORTNESS OF BREATH Last administered on 11/12/18 11:51; Admin Dose 3 ML; Start 11/10/18 at 06:00 Pantoprazole (Protonix Tab) 40 mg DAILY@06 PO Last administered on 11/12/18 05:03; Admin Dose 40 MG; Start 11/10/18 at 06:00 Amlodipine Besylate (Norvasc) 5 mg DAILY PO Last administered on 11/12/18 08:44; Admin Dose 5 MG; Start 11/11/18 at 09:00 Levothyroxine Sodium (Synthroid) 50 mcg BEFORE BREAKFAST PO Last administered on 11/12/18 06:59; Admin Dose 50 MCG; Start 11/11/18 at 07:00 Lisinopril (Zestril) 20 mg DAILY PO Last administered on 11/12/18 08:43; Admin Dose 20 MG; Start 11/11/18 at 09:00 Lorazepam (Ativan) 1 mg HS PRN PO ANXIETY Last administered on 4/13/19at 19:50; Admin Dose 1 MG; Start 11/10/18 at 15:00 Sodium Chloride 1,000 ml @ 100 mls/hr Q10H IV Last administered on 11/11/18at 22:24; Admin Dose 100 MLS/HR; Start 11/11/18 at 11:00 Meropenem/Sodium Chloride 50 ml @ 100 mls/hr Q8 IVPB Last administered on 11/12/18at 05:03; Admin Dose 100 MLS/HR; Start 11/11/18 at 22:00 Doxycycline Hyclate 100 mg/ Sodium Chloride 250 ml @ 250 mls/hr Q12 IVPB Last administered on 11/12/18at 08:42; Admin Dose 250 MLS/HR; Start 11/11/18 at 21:00 Morphine Sulfate (morphine) 2 mg Q4 IV ; Start 11/12/18 at 13:00 DYLAN FINN MD Nov 12, 2018 12:50
[2018-11-12] MEDS ORDERED: KETOROLAC 30 MG INJ IV STA (12:51)
[2018-11-12] MEDS ORDERED: morphine 2 MG INJ IV SCH (13:00)
[2018-11-12] MEDS ORDERED: LORAZEPAM 1 MG TAB PO SCH (13:00)
[2018-11-12] MEDS ORDERED: ONDANSETRON 4 MG INJ IV PRN (14:00)
[2018-11-12] MEDS ORDERED: FENTAnyl 50 MCG/ML VIAL IV PRN (14:00)
[2018-11-12] MEDS ORDERED: LOPERAMIDE 2 MG CAP PO PRN (15:00)
[2018-11-12] MEDS ORDERED: PROMETHAZINE/CODEINE 5ML CUP PO PRN (15:00)
[2018-11-12] MEDS: morphine 2 MG INJ IV SCH ×4 (15:31→21:59)
--- NOTE | 2018-11-12 15:58 | HPN ---
Date/Time of Note Date/Time of Note DATE: 11/12/18 TIME: 15:58 Interval H&P Admission Note Pt. seen H&P reviewed: No system changes DYLAN FINN MD Nov 12, 2018 15:58
--- NOTE | 2018-11-12 16:20 | PREAC ---
Date/Time of Note Date/Time of Note DATE: 11/12/18 TIME: 16:19 Anesthesia Eval and Record Evaluation Time Pre-Procedure Interview DATE: 11/12/18 TIME: 16:19 Age 58 Sex male NPO: 8 hrs Preoperative diagnosis right pleural effusion Planned procedure VATS right Past Medical History Past Medical History: Includes Cardio: HTN Surgery & Anesthesia Issues No known issue Meds Anticoagulation: No Beta Crissy within 24 hr: No Reason Beta Crissy not given: Pt. not on B-Crissy Reported Medications Lorazepam* (Lorazepam*) 1 Mg Tablet, 1 MG PO HS PRN for ANXIETY, #30 TAB 11/10/18 Amlodipine Besylate* (Norvasc*) 5 Mg Tablet, 5 MG PO DAILY, TAB 11/10/18 Levothyroxine Sodium* (Levothyroxine Sodium*) 50 Mcg Tablet, 50 MCG PO BEFORE BREAKFAST, #30 TAB 11/10/18 Lisinopril* (Lisinopril*) 20 Mg Tablet, 20 MG PO DAILY, #30 TAB 11/10/18 Omeprazole* (Omeprazole*) 40 Mg Capsule.dr, 40 MG PO DAILY 11/22/13 Discontinued Reported Medications Temazepam* (Temazepam*) 15 Mg Capsule, 15 MG PO DAILY 11/22/13 Lisinopril* (Lisinopril*) 5 Mg Tablet, 5 MG PO DAILY 11/22/13 Current Medications IV Flush (NS 3 ml) 3 ml PER PROTOCOL IV ; Start 11/10/18 at 06:00 Ondansetron HCl (Zofran Inj) 4 mg Q6H PRN IV NAUSEA/VOMITING Last administered on 11/12/18at 12:35; Admin Dose 4 MG; Start 11/10/18 at 06:00 Acetaminophen (Tylenol Tab) 650 mg Q6H PRN PO .PAIN 1-3 OR TEMP Last administered on 11/11/18at 19:50; Admin Dose 650 MG; Start 11/10/18 at 06:00 Albuterol/ Ipratropium (Duoneb) 3 ml Q2H RESP THERAPY PRN HHN SHORTNESS OF BREATH Last administered on 11/12/18at 11:51; Admin Dose 3 ML; Start 11/10/18 at 06:00 Pantoprazole (Protonix Tab) 40 mg DAILY@06 PO Last administered on 11/12/18at 05:03; Admin Dose 40 MG; Start 11/10/18 at 06:00 Amlodipine Besylate (Norvasc) 5 mg DAILY PO Last administered on 11/12/18at 08:44; Admin Dose 5 MG; Start 11/11/18 at 09:00 Levothyroxine Sodium (Synthroid) 50 mcg BEFORE BREAKFAST PO Last administered on 11/12/18at 06:59; Admin Dose 50 MCG; Start 11/11/18 at 07:00 Lisinopril (Zestril) 20 mg DAILY PO Last administered on 11/12/18at 08:43; Admin Dose 20 MG; Start 11/11/18 at 09:00 Sodium Chloride 1,000 ml @ 100 mls/hr Q10H IV Last administered on 11/11/18at 22:24; Admin Dose 100 MLS/HR; Start 11/11/18 at 11:00 Meropenem/Sodium Chloride 50 ml @ 100 mls/hr Q8 IVPB Last administered on 11/12/18at 13:11; Admin Dose 100 MLS/HR; Start 11/11/18 at 22:00 Doxycycline Hyclate 100 mg/ Sodium Chloride 250 ml @ 250 mls/hr Q12 IVPB Last administered on 11/12/18at 08:42; Admin Dose 250 MLS/HR; Start 11/11/18 at 21:00 Morphine Sulfate (morphine) 2 mg Q2 IV Last administered on 11/12/18at 15:31; Admin Dose 2 MG; Start 11/12/18 at 15:00 Lorazepam (Ativan) 1 mg HS PRN PO ANXIETY; Start 11/12/18 at 13:30 Fentanyl (Sublimaze) 10 mcg PACU ORDER PRN IV MILD PAIN 1-3; Start 11/12/18 at 14:00; Stop 11/12/18 at 18:00 Ondansetron HCl (Zofran Inj) 2 mg PACU ORDER PRN IV NAUSEA/VOMITING; Start 11/12/18 at 14:00; Stop 11/12/18 at 18:00 Promethazine HCl/ Codeine (Phenergan/ Codeine) 5 ml Q4H PRN PO COUGH; Start 11/12/18 at 15:00 Loperamide HCl (Imodium Cap) 2 mg QID PRN PO DIARRHEA; Start 11/12/18 at 15:00 Meds reviewed: Yes Allergies Coded Allergies: No Known Allergy (Unverified , 11/10/18) Allergies Reviewed: Yes Labs/Studies Labs Reviewed: Reviewed by anesthesiologist Result Diagram: 11/12/18 0454 11/12/18 0454 Laboratory Tests 11/12/18 04:54 Blood Bank Test 11/12/18 13:28 Antibody Screen NEGATIVE Blood Product Summary Counts Blood Type A POSITIVE Crossmatch Red Blood Cells test: N/A Studies: ECG (sr), CXR (right PE) Pre-procedure Exam Last vitals Vital Signs Date Temp Pulse Resp B/P (MAP) Pulse Ox O2 O2 Flow FiO2 Time Delivery Rate 11/12/18 99.0 87 19 127/74 93 16:09 (91) 11/12/18 21 11:53 11/12/18 Nasal 2.0 05:06 Cannula Airway: Adequate mouth opening Mallampati: Mallampati I Teeth: Normal Lung: Normal Heart: Normal ASA Physical Status ASA physical status: 2 Emergency: None Planned Anesthetic General/MAC: A Line, One-Lung ventilation Planned Pain Management Parenteral pain med Pre-operative Attestations Prior to commencing anesthesia and surgery, the patient was re-evaluated, there was verification of: *The patient's identity *The results of appropriate recent lab work and preoperative vital signs *The above evaluation not changing prior to induction *Anesthetic plan, risk benefits, alternative and complications discussed with patient/family; questions answered; patient/family understands, accepts and wishes to proceed. RIK GRAHAM MD Nov 12, 2018 16:20
[2018-11-12] MEDS ORDERED: ROCURONIUM 50 MG INJ ONE ×2 (16:26→18:04)
[2018-11-12] MEDS ORDERED: PROPOFOL 20 ML ONE (16:26)
[2018-11-12] MEDS ORDERED: MIDAZOLAM 1 MG/ML 2 ML INJ ONE (16:27)
[2018-11-12] MEDS ORDERED: ONDANSETRON 4 MG INJ ONE (16:38)
[2018-11-12] MEDS ORDERED: METOCLOPRAMIDE 10 MG INJ ONE (16:38)
[2018-11-12] MEDS ORDERED: FENTAnyl 50 MCG/ML VIAL ONE (16:39)
--- NOTE | 2018-11-12 16:52 | PN ---
Date/Time of Note Date/Time of Note DATE: 11/12/18 TIME: 16:50 Assessment/Plan VTE Prophylaxis Risk score (from Ns)>0 risk: 2 SCD applied (from [facility] [place]): Yes Pharmacological prophylaxis: NA/contraindicated Pharm contraindication: surgical contra Lines/Catheters IV C[facility]ter Type (from [facility]): Peripheral IV Urinary Cath still in place: No Assessment/Plan Hospital Course 1. Acute respiratory distress secondary to right-sided pneumonia with empyema CT chest is consistent with right-sided pneumonia and empyema Pulmonology, CT surgery and ID consultations appreciated, patient going for surgical decortication today with Dr. Dickey Continue meropenem and doxycycline per ID HIV is negative 2. Hypertension Continue home meds 3. History of C-diff and tooth infection No acute issue 4. Chronic back pain Pain management Prophylaxis: SCDs DC planning: Not stable for DC, surgical decortication today Result Diagram: 11/12/18 0454 11/12/18 0454 Results 24hrs Laboratory Tests Test 11/12/18 04:53 11/12/18 04:54 HIV (1&2) Antibody NEGATIVE White Blood Count 17.1 H Red Blood Count 3.38 L Hemoglobin 9.7 L Hematocrit 28.7 L Mean Corpuscular Volume 84.9 Mean Corpuscular Hemoglobin 28.7 L Mean Corpuscular Hemoglobin Concent 33.8 Red Cell Distribution Width 14.6 H Platelet Count 375 Mean Platelet Volume 9.9 Immature Granulocytes % 0.700 H Neutrophils % 85.4 H Lymphocytes % 6.1 L Monocytes % 6.6 Eosinophils % 1.0 Basophils % 0.2 Nucleated Red Blood Cells % 0.0 Immature Granulocytes # 0.120 H Neutrophils # 14.6 H Lymphocytes # 1.1 Monocytes # 1.1 H Eosinophils # 0.2 Basophils # 0.0 Nucleated Red Blood Cells # 0.0 Sodium Level 138 Potassium Level 4.2 Chloride Level 107 Carbon Dioxide Level 23 Anion Gap 8 Blood Urea Nitrogen 15 # Creatinine 0.86 Est Glomerular Filtrat Rate mL/min > 60 Glucose Level 111 Calcium Level 8.6 Magnesium Level 1.7 Subjective 24 Hr Interval Summary Respiratory: pain, cough Exam/Review of Systems Exam Vitals Vital Signs Date Temp Pulse Resp B/P (MAP) Pulse Ox O2 O2 Flow FiO2 Time Delivery Rate 11/12/18 99.0 87 19 127/74 93 16:09 (91) 4/14/19 21 11:53 11/12/18 Nasal 2.0 05:06 Cannula Intake and Output 11/11/18 11/11/18 11/12/18 1515:00 23:00 07:00 IntakeIntake Total 1570 ml 2030 ml 750 ml OutputOutput Total 600 ml 100 ml BalanceBalance 1570 ml 1430 ml 650 ml Constitutional: alert, oriented Respiratory: clear to auscultation Cardiovascular: regular rate and rhythm Gastrointestinal: soft; No distended Musculoskeletal: nl extremities to inspection Results Results 24hrs Laboratory Tests Test 11/12/18 04:53 11/12/18 04:54 HIV (1&2) Antibody NEGATIVE White Blood Count 17.1 H Red Blood Count 3.38 L Hemoglobin 9.7 L Hematocrit 28.7 L Mean Corpuscular Volume 84.9 Mean Corpuscular Hemoglobin 28.7 L Mean Corpuscular Hemoglobin Concent 33.8 Red Cell Distribution Width 14.6 H Platelet Count 375 Mean Platelet Volume 9.9 Immature Granulocytes % 0.700 H Neutrophils % 85.4 H Lymphocytes % 6.1 L Monocytes % 6.6 Eosinophils % 1.0 Basophils % 0.2 Nucleated Red Blood Cells % 0.0 Immature Granulocytes # 0.120 H Neutrophils # 14.6 H Lymphocytes # 1.1 Monocytes # 1.1 H Eosinophils # 0.2 Basophils # 0.0 Nucleated Red Blood Cells # 0.0 Sodium Level 138 Potassium Level 4.2 Chloride Level 107 Carbon Dioxide Level 23 Anion Gap 8 Blood Urea Nitrogen 15 # Creatinine 0.86 Est Glomerular Filtrat Rate mL/min > 60 Glucose Level 111 Calcium Level 8.6 Magnesium Level 1.7 Medications Medication Current Medications IV Flush (NS 3 ml) 3 ml PER PROTOCOL IV ; Start 11/10/18 at 06:00 Ondansetron HCl (Zofran Inj) 4 mg Q6H PRN IV NAUSEA/VOMITING Last administered on 11/12/18at 12:35; Admin Dose 4 MG; Start 11/10/18 at 06:00 Acetaminophen (Tylenol Tab) 650 mg Q6H PRN PO .PAIN 1-3 OR TEMP Last administered on 11/11/18at 19:50; Admin Dose 650 MG; Start 11/10/18 at 06:00 Albuterol/ Ipratropium (Duoneb) 3 ml Q2H RESP THERAPY PRN HHN SHORTNESS OF BREATH Last administered on 11/12/18 11:51; Admin Dose 3 ML; Start 11/10/18 at 06:00 Pantoprazole (Protonix Tab) 40 mg DAILY@06 PO Last administered on 11/12/18 05:03; Admin Dose 40 MG; Start 11/10/18 at 06:00 Amlodipine Besylate (Norvasc) 5 mg DAILY PO Last administered on 11/12/18 08:44; Admin Dose 5 MG; Start 11/11/18 at 09:00 Levothyroxine Sodium (Synthroid) 50 mcg BEFORE BREAKFAST PO Last administered on 11/12/18 06:59; Admin Dose 50 MCG; Start 11/11/18 at 07:00 Lisinopril (Zestril) 20 mg DAILY PO Last administered on 11/12/18 08:43; Admin Dose 20 MG; Start 11/11/18 at 09:00 Sodium Chloride 1,000 ml @ 100 mls/hr Q10H IV Last administered on 11/11/18 22:24; Admin Dose 100 MLS/HR; Start 11/11/18 at 11:00 Meropenem/Sodium Chloride 50 ml @ 100 mls/hr Q8 IVPB Last administered on 11/12/18 13:11; Admin Dose 100 MLS/HR; Start 11/11/18 at 22:00 Doxycycline Hyclate 100 mg/ Sodium Chloride 250 ml @ 250 mls/hr Q12 IVPB Last administered on 11/12/18 08:42; Admin Dose 250 MLS/HR; Start 11/11/18 at 21:00 Morphine Sulfate (morphine) 2 mg Q2 IV Last administered on 11/12/18 15:31; Admin Dose 2 MG; Start 11/12/18 at 15:00 Lorazepam (Ativan) 1 mg HS PRN PO ANXIETY; Start 11/12/18 at 13:30 Fentanyl (Sublimaze) 10 mcg PACU ORDER PRN IV MILD PAIN 1-3; Start 11/12/18 at 14:00; Stop 11/12/18 at 18:00 Ondansetron HCl (Zofran Inj) 2 mg PACU ORDER PRN IV NAUSEA/VOMITING; Start 11/12/18 at 14:00; Stop 11/12/18 at 18:00 Promethazine HCl/ Codeine (Phenergan/ Codeine) 5 ml Q4H PRN PO COUGH; Start 11/12/18 at 15:00 Loperamide HCl (Imodium Cap) 2 mg QID PRN PO DIARRHEA; Start 11/12/18 at 15:00 SHANNON DUBOSE Nov 12, 2018 16:52
[2018-11-12] MEDS ORDERED: EPHEDrine 25 MG/5 ML SYG ONE (17:23)
--- NOTE | 2018-11-12 17:23 | CONS ---
Assessment/Plan Assessment/Plan Hospital Course (Demo Recall) ID PROGRESS NOTE CURRENT ABX: DAY #3 => Merrem + Doxy s/p Azith + Cefepime s/p Ceftriaxone 11/12/184 11/12/18 0454 24H INTERVAL SUMMARY * OFF FLOOR FOR PROCEDURE today => RT THORACOSCOPY AND BRONCHOSCOPY WITH DR FINN, * Fevers resolved * Per RN had loose stools today * HIV(-) DIAGNOSTIC IMAGING * 11/11/18 CXR: Large loculated right pleural effusion with near diffuse right lung air space opacities representing atelectasis or pneumonia. * 11/10/18 CT CHEST: * 1. Moderate right-sided loculated complex pleural fluid concerning for empyema. * 2. Large area of dense consolidation within the right lower lobe concerning for pneumonia. * 3. Minimal left pleural effusion with adjacent atelectasis. * 4. Scattered ill-defined pulmonary nodules and small areas of ground-glass opacities likely representing infectious/inflammatory changes. * 5. Mild paraseptal emphysema in the lung apices. * 6. Scattered aortic and coronary artery vascular calcifications. MICRO/OTHER * 11/11/18 BCx (-) * 11/11/18 Urine (-) 24H -- No U/A ordered * MRSA Nares ? PHYSICAL EXAMINATION=> DEFERRED == OFF FLOOR TODAY ID ASSESSMENT 58 yo M admit with: Sepsis secondary to right lung pneumonia and empyema Acute respiratory distress secondary to right-sided pneumonia with empyema * Ultrasound of chest shows small left pleural effusion and possible loculated right pleural effusion, thoracentesis unable to be done * CT chest is consistent with right-sided pneumonia and empyema * CT surgeon recommended options for pigtail vs VATS Right sided pleuritic chest pain -- pleurisy Acute kidney injury secondary to sepsis-improved HTN GERD w/Hx of Erosive esophagitis and nodular gastritis on EGD NOVEMBER 2017 * Risk factor for silent aspiration - however patient denies current sxs of GERD on PPI Former tobacco user -- ?COPD Loose stools == ABX associated ABX ALLERGIES: KNDA INVASIVES: PI CURRENT ABX: DAY #3 => Merrem + Doxy s/p Azith + Cefepime s/p Ceftriaxone ID RECOMMENDATIONS/PLAN: 1. Changed Cefepime to MERREM -- need anaerobic coverage for concern empyema 2. Change Azith to Doxycycline: RATIONALE: Doxy will cover both Atypical + MDRO Staph organisms. * IF (-) Mycoplasma, change Doxy to Vanco IV 3. Swab nares for MRSA -- if (+) add Vanco IV ==> PENDING 4. Send serology for Mycoplasma PNA AG, cocci ==> PENDING 5. FOLLOW UP MICRO POST PROCEDURE . Consultation Date/Type/Reason Admit Date/Time Nov 10, 2018 at 05:13 Initial Consult Date Requesting Provider: LORI VÁZQUEZ MD, [facility] Date/Time of Note DATE: 11/12/18 TIME: 17:15 Exam/Review of Systems Exam Vitals Vital Signs Date Temp Pulse Resp B/P (MAP) Pulse Ox O2 O2 Flow FiO2 Time Delivery Rate 11/12/18 99.0 87 19 127/74 93 16:09 (91) 11/12/18 21 11:53 11/12/18 Nasal 2.0 05:06 Cannula Intake and Output 11/11/18 11/11/18 11/12/18 1515:00 23:00 07:00 IntakeIntake Total 1570 ml 2030 ml 750 ml OutputOutput Total 600 ml 100 ml BalanceBalance 1570 ml 1430 ml 650 ml Results Result Diagram: 11/12/18 0454 11/12/18 0454 Results 24hrs Laboratory Tests Test 11/12/18 04:53 11/12/18 04:54 HIV (1&2) Antibody NEGATIVE White Blood Count 17.1 H Red Blood Count 3.38 L Hemoglobin 9.7 L Hematocrit 28.7 L Mean Corpuscular Volume 84.9 Mean Corpuscular Hemoglobin 28.7 L Mean Corpuscular Hemoglobin Concent 33.8 Red Cell Distribution Width 14.6 H Platelet Count 375 Mean Platelet Volume 9.9 Immature Granulocytes % 0.700 H Neutrophils % 85.4 H Lymphocytes % 6.1 L Monocytes % 6.6 Eosinophils % 1.0 Basophils % 0.2 Nucleated Red Blood Cells % 0.0 Immature Granulocytes # 0.120 H Neutrophils # 14.6 H Lymphocytes # 1.1 Monocytes # 1.1 H Eosinophils # 0.2 Basophils # 0.0 Nucleated Red Blood Cells # 0.0 Sodium Level 138 Potassium Level 4.2 Chloride Level 107 Carbon Dioxide Level 23 Anion Gap 8 Blood Urea Nitrogen 15 # Creatinine 0.86 Est Glomerular Filtrat Rate mL/min > 60 Glucose Level 111 Calcium Level 8.6 Magnesium Level 1.7 Medications Medication Current Medications IV Flush (NS 3 ml) 3 ml PER PROTOCOL IV ; Start 11/10/18 at 06:00 Ondansetron HCl (Zofran Inj) 4 mg Q6H PRN IV NAUSEA/VOMITING Last administered on 11/12/18 12:35; Admin Dose 4 MG; Start 11/10/18 at 06:00 Acetaminophen (Tylenol Tab) 650 mg Q6H PRN PO .PAIN 1-3 OR TEMP Last administered on 11/11/18 19:50; Admin Dose 650 MG; Start 11/10/18 at 06:00 Albuterol/ Ipratropium (Duoneb) 3 ml Q2H RESP THERAPY PRN HHN SHORTNESS OF BREATH Last administered on 11/12/18 11:51; Admin Dose 3 ML; Start 11/10/18 at 06:00 Pantoprazole (Protonix Tab) 40 mg DAILY@06 PO Last administered on 11/12/18 05:03; Admin Dose 40 MG; Start 11/10/18 at 06:00 Amlodipine Besylate (Norvasc) 5 mg DAILY PO Last administered on 11/12/18 08:44; Admin Dose 5 MG; Start 11/11/18 at 09:00 Levothyroxine Sodium (Synthroid) 50 mcg BEFORE BREAKFAST PO Last administered on 11/12/18 06:59; Admin Dose 50 MCG; Start 11/11/18 at 07:00 Lisinopril (Zestril) 20 mg DAILY PO Last administered on 11/12/18 08:43; Admin Dose 20 MG; Start 11/11/18 at 09:00 Sodium Chloride 1,000 ml @ 100 mls/hr Q10H IV Last administered on 11/11/18 22:24; Admin Dose 100 MLS/HR; Start 11/11/18 at 11:00 Meropenem/Sodium Chloride 50 ml @ 100 mls/hr Q8 IVPB Last administered on 11/12/18 13:11; Admin Dose 100 MLS/HR; Start 11/11/18 at 22:00 Doxycycline Hyclate 100 mg/ Sodium Chloride 250 ml @ 250 mls/hr Q12 IVPB Last administered on 11/12/18 08:42; Admin Dose 250 MLS/HR; Start 11/11/18 at 21:00 Morphine Sulfate (morphine) 2 mg Q2 IV Last administered on 11/12/18at 15:31; Admin Dose 2 MG; Start 11/12/18 at 15:00 Lorazepam (Ativan) 1 mg HS PRN PO ANXIETY; Start 11/12/18 at 13:30 Fentanyl (Sublimaze) 10 mcg PACU ORDER PRN IV MILD PAIN 1-3; Start 11/12/18 at 14:00; Stop 11/12/18 at 18:00 Ondansetron HCl (Zofran Inj) 2 mg PACU ORDER PRN IV NAUSEA/VOMITING; Start 11/12/18 at 14:00; Stop 11/12/18 at 18:00 Promethazine HCl/ Codeine (Phenergan/ Codeine) 5 ml Q4H PRN PO COUGH; Start 11/12/18 at 15:00 Loperamide HCl (Imodium Cap) 2 mg QID PRN PO DIARRHEA; Start 11/12/18 at 15:00 Magnesium Sulfate 50 ml @ 25 mls/hr ONCE ONCE IVPB ; Start 11/12/18 at 18:00; Stop 11/12/18 at 19:59 ROJELIO MUÑOZ NP Nov 12, 2018 17:23
[2018-11-12] MEDS ORDERED: HYDROmorphONE 2 MG/ML SYG ONE (17:28)
[2018-11-12] MEDS ORDERED: METOPROLOL 5 MG INJ ONE (17:37)
[2018-11-12] MEDS ORDERED: BUPIVACAINE 0.5%/EPI (SDV) 10 ML INJ ONE (17:43)
[2018-11-12] MEDS ORDERED: MAGNESIUM SULFATE 2 GM/50 ML 50 ML IVPB ONE (18:00)
[2018-11-12] MEDS ORDERED: KETOROLAC 30 MG INJ ONE (18:51)
[2018-11-12] MEDS ORDERED: HYDROmorphONE 0.5 MG/0.5 ML SYG IV PRN (19:00)
[2018-11-12] MEDS: ACETAMINOPHEN 1000MG/100ML IV 100 ML IVPB SCH (19:00)
[2018-11-12] MEDS ORDERED: DIPHENHYDRAMINE 50 MG INJ IV PRN (19:00)
[2018-11-12] MEDS ORDERED: KETOROLAC 30 MG INJ IV PRN (19:00)
--- NOTE | 2018-11-12 19:41 | OPR ---
DATE OF OPERATION: 11/12/2018 PREOPERATIVE DIAGNOSIS: Loculated right empyema. POSTOPERATIVE DIAGNOSIS: Loculated right empyema. OPERATION PERFORMED: Flexible bronchoscopy, right thoracoscopy, right total pulmonary and diaphragma tic decortication, cryoablation of intercostal nerves 4 through 7 with intercostal nerve block using 0.5% Marcaine. SURGEON: Dylan Dickey M.D. SHOE PARTS CASER: Shanna Alexander. ANESTHESIOLOGIST: Dr. Lisa Amaya. ANESTHESIA: Double lumen general endotracheal. COMPLICATIONS: None. FINDINGS: No endobronchial lesions were identified. Intraoperatively, there are several pus pockets . There was extensive peel over the diaphragm and the right lower lobe, middle lobe and upper lobe. There was a very thick peel over the lower lobe. After complete decortication. We were able to ree xpand the right lung completely. INDICATION: The patient is a 58-year-old male who has been feeling ill for a week. ____ for over a month and over the last several days has had significant pleuritic pain, fevers and a cough. He was admitted and found to have a loculated right empyema with elevated white count. He was referred for decortication risks, benefits and alternatives were explained to the patient understood and consented . DESCRIPTION OF PROCEDURE: The patient was brought to the operating room, was placed in supine positi on. He was induced and underwent double lumen general endotracheal intubation without complications. Bronchoscope was introduced in both lumens and into the left and right bronchi and subsegmental bro nchi. No endobronchial lesions were identified. We then turned the patient right side up. He was p repped and draped in usual sterile fashion. Two trocar incisions were made in the 8th interspace and the other utility incision was made in the 5th interspace. A wound byproducts maker was placed. We began b y introducing the camera. There was a dense adhesion. These were taken down using blunt dissection. We then got into several pockets of pus and serous fluid. These were all drained and irrigated tho roughly over 3 liters of fluid. We then completed decortication of the entire right lower lobe, part of the diaphragm, middle lobe and part of the upper lobe. After complete decortication, we were abl e to reexpand the lung. We then did a trial block using AtriCure device for intercostal nerves 4 thr ough 7 and also injected 0.5% Marcaine intercostal nerves 4 through 7. We continued copious amounts of irrigation and then placed two 32-Yi chest tubes and secured them using silk suture. The util ity incision was closed using 0 Vicryl followed by closure using 3-0 Vicryl and then the skin using 4 -0 Monocryl. The trocar incision closed using 3-0 Vicryl for the deep layer and 4-0 Monocryl for the skin. Dressings were applied. The patient was placed supine, extubated, and taken to the ICU in st able condition. Dictated By: DYLAN JACKMAN/ANNE Conf#: [id number] DID#: [id number] CC: LORI VÁZQUEZ MD; DONN MORE MD;*[facility]*
[2018-11-12] MEDS: D5W-0.45 NACL + KCL 20 MEQ 1,000 ML IV SCH (19:59)
[2018-11-12] MEDS ORDERED: SOD CHLORIDE 0.9% 500 ML IV ONE (21:00)
[2018-11-12] MEDS ORDERED: NORepinephrine 8MG/250 ML (PMX 250 ML IV SCH (21:00)
[2018-11-12] MEDS: FAMOTIDINE 20 MG TAB PO SCH (22:02)
[2018-11-13] VITALS (25 sets, daily range): BP systolic 83–156; BP diastolic 44–95; PULSE 60–126; RESP 18–29
[2018-11-13] MEDS: morphine 2 MG INJ IV SCH ×8 (00:42→12:55)
[2018-11-13] MEDS: ACETAMINOPHEN 1000MG/100ML IV 100 ML IVPB SCH ×3 (00:42→12:26)
[2018-11-13] MEDS: ONDANSETRON 4 MG INJ IV PRN ×2 (01:21→08:47)
[2018-11-13] MEDS: LORAZEPAM 1 MG TAB PO PRN ×2 (03:47→22:33)
[2018-11-13] MEDS: D5W-0.45 NACL + KCL 20 MEQ 1,000 ML IV SCH (06:29)
[2018-11-13] MEDS: MEROPENEM 1 GM/50ML(PMX) 50 ML IVPB SCH ×3 (06:29→22:37)
[2018-11-13] MEDS: PANTOPRAZOLE (EC) 40 MG TAB PO SCH (06:30)
[2018-11-13] MEDS: LEVOTHYROXINE 50 MCG TAB PO SCH (06:30)
[2018-11-13] MEDS: ENOXAPARIN 40 MG/0.4 ML SYG SC SCH (06:33)
[2018-11-13] MEDS: HYDROmorphONE 0.5 MG/0.5 ML SYG IV PRN ×2 (06:56→13:47)
--- NOTE | 2018-11-13 07:26 | PN ---
Date/Time of Note Date/Time of Note DATE: 11/13/18 TIME: 07:21 Assessment/Plan Lines/Catheters IV Catheter Type (from Nrs): Peripheral IV Ellis in Place (from Nrs): Yes Assessment/Plan Assessment/Plan right empyema s/p right decortication diet out of bed incentive spirometer ellis 1 more day Subjective 24 Hr Interval Summary Constitutional: improved, urine output Feeding: clear Pain Control: moderate Exam/Review of Systems Vital Signs Vitals Vital Signs Date Temp Pulse Resp B/P (MAP) Pulse Ox O2 O2 Flow FiO2 Time Delivery Rate 11/13/18 60 22 99/44 (62) 100 Nasal 2.0 06:00 Cannula 11/13/18 27 04:46 11/13/18 98.4 04:00 Intake and Output 11/12/18 11/12/18 11/13/18 1515:00 23:00 07:00 IntakeIntake Total 3090 ml 1100 ml OutputOutput Total 100 ml 470 ml 110 ml BalanceBalance -100 ml 2620 ml 990 ml Exam Constitutional: alert, well developed Psych: nl mood/affect Head: normocephalic Eyes: EOMI ENMT: nl lips & teeth Neck: supple Respiratory: other (2 liters n/c right tube 650 cc) Cardiovascular: regular rate and rhythm Genitourinary - Male: other (ellis) Neurological: nl mental status, nl speech Results Result Diagram: 11/13/18 0500 11/13/18 0500 ORIANA ZAPIEN MD Nov 13, 2018 07:26
--- NOTE | 2018-11-13 08:29 | CONS ---
Assessment/Plan Assessment/Plan Assessment/Plan (Daily) Assessment and recommendations; 1. Patient admitted for empyema status post right VATS procedure yesterday. Currently on appropriate antimicrobial regimen. 2. History of hypothyroidism and systemic hypertension. Continue current supportive care. Patient be transferred to medical floor. Consultation Date/Type/Reason Admit Date/Time Nov 10, 2018 at 05:13 Initial Consult Date 11/12/18 Requesting Provider: LORI VÁZQUEZ MD, [facility] Date/Time of Note DATE: 11/13/18 TIME: 08:27 24 HR Interval Summary Free Text/Dictation Patient's condition is stable. Denies any shortness of breath. Any chest pain. General exam; elderly male, awake alert, currently no distress. Exam/Review of Systems Exam Vitals Vital Signs Date Temp Pulse Resp B/P (MAP) Pulse Ox O2 O2 Flow FiO2 Time Delivery Rate 11/13/18 80 25 112/57 100 Nasal 2.0 07:00 (75) Cannula 11/13/18 27 04:46 11/13/18 98.4 04:00 Intake and Output 11/12/18 11/12/18 11/13/18 1515:00 23:00 07:00 IntakeIntake Total 3090 ml 1350 ml OutputOutput Total 100 ml 520 ml 590 ml BalanceBalance -100 ml 2570 ml 760 ml Exam H EENT exam; supple neck, no JVD. No lymphadenopathy. Midline trachea. No thyromegaly. Patient has fair dentition. No neck masses. Chest exam; clear to auscultation. S1-S2 audible, no murmurs. Regular rhythm. Right-sided chest tube in place. Abdomen exam; soft, no organomegaly. Nontender. Bowel sounds audible. Extremity exam; no peripheral edema or clubbing. 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 Results Result Diagram: 11/13/18 0500 11/13/18 0500 Results 24hrs Laboratory Tests Test 11/12/18 18:14 11/12/18 19:18 11/12/18 23:48 11/13/18 05:00 Blood Gas Blood arterial Specimen Source Arterial Blood 11/12/2018 6:10:1 Date Drawn 6 PM Arterial Blood pH 7.447 (Temp corrected) Arterial Blood 25.8 L pCO2 (Temp correct) Arterial Blood 82.1 pO2 (Temp corrected) Arterial Blood 17.4 L HCO3 Arterial Blood -5.5 L Base Excess Arterial Blood 95.5 Oxygen Saturation Hitesh Test N/A Arterial Blood A-Line Gas Puncture Site Arterial 0.3 Blood Carboxyhemo globin Arterial Blood 0.2 Methemoglobin Blood Gas A-a O2 605.1 H Differential Oxyhemoglobin 95.0 Percent Blood Gas 37.0 Temperature Blood Gas 10.0 Respiration Rate Blood Gas Actual 10 Respiration Rate Blood Gas VENT - PC Modality FiO2 100.0 Blood Gas 1 Inspiratory Time Blood Gas Tidal 700.0 Volume Blood Gas High 7.0 PEEP Setting Blood Gas N SANTOS CRUZ Critical Value Read Back Blood Gas T [employer] Notified Whom Blood Gas 11/12/2018 6:28:0 Notified Time 7 PM White Blood Count 26.8 #H 16.4 #H Red Blood Count 3.43 L 2.52 #L Hemoglobin 10.0 L 7.4 #L Hematocrit 29.2 L 21.7 #L Mean Corpuscular 85.1 86.1 Volume Mean Corpuscular 29.2 29.4 Hemoglobin Mean Corpuscular 34.2 34.1 Hemoglobin Concen t Red Cell 14.6 H 14.6 H Distribution Width Platelet Count 529 #H 371 # Mean Platelet 9.6 9.9 Volume Immature 2.100 H 1.400 H Granulocytes % Neutrophils % 84.5 H Segmented 88 H Neutrophils % (Manual) Band Neutrophils 4 % (Manual) Lymphocytes % 7.3 L Lymphocytes % 4 L (Manual) Monocytes % 6.3 Monocytes % 3 (Manual) Eosinophils % 0.2 Basophils % 0.3 Basophils % 1 (Manual) Nucleated Red 0.0 0.0 Blood Cells % Immature 0.560 H 0.230 H Granulocytes # Neutrophils # 13.8 H Neutrophils # 23.9 H (Manual) Band Neutrophils 1.0 H # Lymphocytes 1.0 (Manual) Lymphocytes # 1.2 Monocytes # 1.0 H Monocytes # 0.8 (Manual) Eosinophils # 0.0 Basophils # 0.1 Basophils # 0.2 H (Manual) Nucleated Red 0.0 Blood Cells # Platelet Estimate NORMAL Giant Platelets 1 H Poikilocytosis 1+ Ovalocytes 1+ Bedside Glucose 119 Sodium Level 136 Potassium Level 4.9 Chloride Level 110 Carbon Dioxide 20 L Level Anion Gap 6 Blood Urea 18 Nitrogen Creatinine 1.03 Est Glomerular > 60 Filtrat Rate mL/min Glucose Level 138 Calcium Level 8.2 L Magnesium Level 2.1 Medications Medication Current Medications IV Flush (NS 3 ml) 3 ml PER PROTOCOL IV ; Start 11/10/18 at 06:00 Acetaminophen (Tylenol Tab) 650 mg Q6H PRN PO .PAIN 1-3 OR TEMP Last administered on 11/11/18 19:50; Admin Dose 650 MG; Start 11/10/18 at 06:00 Albuterol/ Ipratropium (Duoneb) 3 ml Q2H RESP THERAPY PRN HHN SHORTNESS OF BREATH Last administered on 11/12/18 11:51; Admin Dose 3 ML; Start 11/10/18 at 06:00 Pantoprazole (Protonix Tab) 40 mg DAILY@06 PO Last administered on 11/13/18 06:30; Admin Dose 40 MG; Start 11/10/18 at 06:00 Amlodipine Besylate (Norvasc) 5 mg DAILY PO Last administered on 11/12/18 08:44; Admin Dose 5 MG; Start 11/11/18 at 09:00 Levothyroxine Sodium (Synthroid) 50 mcg BEFORE BREAKFAST PO Last administered on 11/13/18 06:30; Admin Dose 50 MCG; Start 11/11/18 at 07:00 Lisinopril (Zestril) 20 mg DAILY PO Last administered on 11/12/18 08:43; Admin Dose 20 MG; Start 11/11/18 at 09:00 Meropenem/Sodium Chloride 50 ml @ 100 mls/hr Q8 IVPB Last administered on 11/13/18 06:29; Admin Dose 100 MLS/HR; Start 11/11/18 at 22:00 Doxycycline Hyclate 100 mg/ Sodium Chloride 250 ml @ 250 mls/hr Q12 IVPB Last administered on 11/12/18 22:02; Admin Dose 250 MLS/HR; Start 11/11/18 at 21:00 Morphine Sulfate (morphine) 2 mg Q2 IV Last administered on 11/13/18 03:34; Admin Dose 2 MG; Start 11/12/18 at 15:00 Lorazepam (Ativan) 1 mg HS PRN PO ANXIETY Last administered on 11/13/18 03:47; Admin Dose 1 MG; Start 11/12/18 at 13:30 Promethazine HCl/ Codeine (Phenergan/ Codeine) 5 ml Q4H PRN PO COUGH; Start 11/12/18 at 15:00 Loperamide HCl (Imodium Cap) 2 mg QID PRN PO DIARRHEA; Start 11/12/18 at 15:00 Hydromorphone HCl (Dilaudid) 0.5 mg Q6H PRN IV PAIN LEVEL 6-10 Last administered on 11/13/18at 06:56; Admin Dose 0.5 MG; Start 11/12/18 at 19:00 Acetaminophen/ Hydrocodone Bitart ([place] (10/325)) 1 tab Q6H PRN PO PAIN; Start 11/12/18 at 19:00 Ketorolac Tromethamine (Toradol) 30 mg Q6H PRN IV PAIN Last administered on 11/13/18at 04:30; Admin Dose 30 MG; Start 11/12/18 at 19:00; Stop 11/15/18 at 18:59 Ondansetron HCl (Zofran Inj) 4 mg Q6H PRN IV NAUSEA AND/OR VOMITING Last administered on 11/13/18at 01:21; Admin Dose 4 MG; Start 11/12/18 at 19:00 Famotidine (Pepcid) 20 mg BID PO Last administered on 11/12/18at 22:02; Admin Dose 20 MG; Start 11/12/18 at 21:00 Potassium Chloride/Dextrose/ Sod Cl 1,000 ml @ 100 mls/hr Q10H IV Last administered on 11/13/18at 06:29; Admin Dose 100 MLS/HR; Start 11/12/18 at 18:57 Enoxaparin Sodium (Lovenox) 40 mg DAILY@07 SC ; Start 11/13/18 at 07:00 Acetaminophen 100 ml @ 400 mls/hr Q6H IVPB Last administered on 11/13/18at 00:42; Admin Dose 400 MLS/HR; Start 11/12/18 at 19:00; Stop 11/13/18 at 18:59 Norepinephrine 250 ml @ 1.875 mls/ hr TITRATE IV ; Start 11/12/18 at 21:00 HANNAH YADAV Nov 13, 2018 08:29
[2018-11-13] MEDS: FAMOTIDINE 20 MG TAB PO SCH ×2 (08:56→21:16)
[2018-11-13] MEDS: LISINOPRIL 20 MG TAB PO SCH (08:56)
[2018-11-13] MEDS: AMLODIPINE 5 MG TAB PO SCH (08:56)
[2018-11-13] MEDS: HYDROCODONE/APAP (10/325) TAB PO PRN ×4 (08:56→22:33)
--- NOTE | 2018-11-13 09:09 | PAC ---
Date/Time of Note Date/Time of Note DATE: 11/13/18 TIME: 09:09 Post-Anesthesia Notes Post-Anesthesia Note Last documented vital signs Vital Signs Date Temp Pulse Resp B/P (MAP) Pulse Ox O2 O2 Flow FiO2 Time Delivery Rate 11/13/18 98.4 80 25 112/57 100 Nasal 2.0 07:00 (75) Cannula 11/13/18 27 04:46 11/13/18 98.4 04:00 Activity: WNL Respiratory function: WNL Cardiovascular function: WNL Mental status: Baseline Pain reasonably controlled: Yes Hydration appropriate: Yes Nausea/Vomiting absent: No RIK GRAHAM MD Nov 13, 2018 09:09
[2018-11-13] MEDS: DOXYCYCLINE 100 MG in SOD CHLORIDE 0.9% 250 ML IVPB SCH ×2 (09:50→21:16)
[2018-11-13] MEDS: DEXTROSE 5%-0.45% NACL 1,000 ML IV SCH ×2 (10:57→22:43)
--- NOTE | 2018-11-13 11:30 | CONS ---
Assessment/Plan Assessment/Plan Hospital Course (Demo Recall) Patient is alert feels good denies pain at the moment no fevers overnight he has right sided chest tube. WBC 16.4 H&H 7.4 and 21.7 platelets 371 neutrophils 84.5. BUN 18 creatinine 1.03. Microbiology: Surgical cultures pending, blood and urine cultures since admission negative Antimicrobials: Doxycycline, meropenem Physical examination: Well-nourished well-developed elderly man who is alert in no distress. Head atraumatic normocephalic sclera nonicteric. Neck is supple. Chest rise symmetrical breath sounds with scattered rhonchi on the right. Heart: S1-S2. Abdomen distended soft bowel sounds present. Extremities without cyanosis. Assessment: Empyema status post right VATS procedure 11/12/18 Status post sepsis on admission Hypertension Status post acute kidney injury Plan: Patient is doing better, continue on current antibiotics, follow intraoperative cultures Consultation Date/Type/Reason Admit Date/Time Nov 10, 2018 at 05:13 Initial Consult Date 11/12/18 Type of Consult id Requesting Provider: LORI VÁZQUEZ MD, [facility] Date/Time of Note DATE: 11/13/18 TIME: 11:30 Exam/Review of Systems Exam Vitals Vital Signs Date Temp Pulse Resp B/P (MAP) Pulse Ox O2 O2 Flow FiO2 Time Delivery Rate 11/13/18 2.0 08:00 11/13/18 80 08:00 11/13/18 25 112/57 100 Nasal 07:00 (75) Cannula 11/13/18 27 04:46 11/13/18 98.4 04:00 Intake and Output 11/12/18 11/12/18 11/13/18 1515:00 23:00 07:00 IntakeIntake Total 3090 ml 1350 ml OutputOutput Total 100 ml 520 ml 590 ml BalanceBalance -100 ml 2570 ml 760 ml Results Result Diagram: 11/13/18 0500 11/13/18 0500 Results 24hrs Laboratory Tests Test 11/12/18 18:14 11/12/18 19:18 11/12/18 23:48 11/13/18 05:00 Blood Gas Blood arterial Specimen Source Arterial Blood 11/12/2018 6:10: Date Drawn 16 PM Arterial Blood 7.447 pH (Temp corrected) Arterial Blood 25.8 L pCO2 (Temp correct) Arterial Blood 82.1 pO2 (Temp corrected) Arterial Blood 17.4 L HCO3 Arterial Blood -5.5 L Base Excess Arterial Blood 95.5 Oxygen Saturatio n Hitesh Test N/A Arterial Blood A-Line Gas Puncture Site Arterial 0.3 Blood Carboxyhem oglobin Arterial Blood 0.2 Methemoglobin Blood Gas A-a O2 605.1 H Differential Oxyhemoglobin 95.0 Percent Blood Gas 37.0 Temperature Blood Gas 10.0 Respiration Rate Blood Gas Actual 10 Respiration Rate Blood Gas VENT - PC Modality FiO2 100.0 Blood Gas 1 Inspiratory Time Blood Gas Tidal 700.0 Volume Blood Gas High 7.0 PEEP Setting Blood Gas N SANTOS CRUZ Critical Value Read Back Blood Gas [facility] Notified Whom Blood Gas 11/12/2018 6:28: Notified Time 07 PM White Blood 26.8 #H 16.4 #H Count Red Blood Count 3.43 L 2.52 #L Hemoglobin 10.0 L 7.4 #L Hematocrit 29.2 L 21.7 #L Mean Corpuscular 85.1 86.1 Volume Mean Corpuscular 29.2 29.4 Hemoglobin Mean Corpuscular 34.2 34.1 Hemoglobin Lucy nt Red Cell 14.6 H 14.6 H Distribution Width Platelet Count 529 #H 371 # Mean Platelet 9.6 9.9 Volume Immature 2.100 H 1.400 H Granulocytes % Neutrophils % 84.5 H Segmented 88 H Neutrophils % (Manual) Band Neutrophils 4 % (Manual) Lymphocytes % 7.3 L Lymphocytes % 4 L (Manual) Monocytes % 6.3 Monocytes % 3 (Manual) Eosinophils % 0.2 Basophils % 0.3 Basophils % 1 (Manual) Nucleated Red 0.0 0.0 Blood Cells % Immature 0.560 H 0.230 H Granulocytes # Neutrophils # 13.8 H Neutrophils # 23.9 H (Manual) Band Neutrophils 1.0 H # Lymphocytes 1.0 (Manual) Lymphocytes # 1.2 Monocytes # 1.0 H Monocytes # 0.8 (Manual) Eosinophils # 0.0 Basophils # 0.1 Basophils # 0.2 H (Manual) Nucleated Red 0.0 Blood Cells # Pathologist Review (Hematolo gy) Platelet NORMAL Estimate Giant Platelets 1 H Poikilocytosis 1+ Ovalocytes 1+ Path Consult ROBSON FERRERA Signing Patholog MD ist Bedside Glucose 119 Sodium Level 136 Potassium Level 4.9 Chloride Level 110 Carbon Dioxide 20 L Level Anion Gap 6 Blood Urea 18 Nitrogen Creatinine 1.03 Est Glomerular > 60 Filtrat Rate mL/min Glucose Level 138 Calcium Level 8.2 L Magnesium Level 2.1 Medications Medication Current Medications IV Flush (NS 3 ml) 3 ml PER PROTOCOL IV ; Start 11/10/18 at 06:00 Acetaminophen (Tylenol Tab) 650 mg Q6H PRN PO .PAIN 1-3 OR TEMP Last administered on 11/11/18 19:50; Admin Dose 650 MG; Start 11/10/18 at 06:00 Albuterol/ Ipratropium (Duoneb) 3 ml Q2H RESP THERAPY PRN HHN SHORTNESS OF BREATH Last administered on 11/12/18 11:51; Admin Dose 3 ML; Start 11/10/18 at 06:00 Pantoprazole (Protonix Tab) 40 mg DAILY@06 PO Last administered on 11/13/18 06:30; Admin Dose 40 MG; Start 11/10/18 at 06:00 Amlodipine Besylate (Norvasc) 5 mg DAILY PO Last administered on 11/12/18 08:44; Admin Dose 5 MG; Start 11/11/18 at 09:00 Levothyroxine Sodium (Synthroid) 50 mcg BEFORE BREAKFAST PO Last administered on 11/13/18 06:30; Admin Dose 50 MCG; Start 11/11/18 at 07:00 Lisinopril (Zestril) 20 mg DAILY PO Last administered on 11/12/18 08:43; Admin Dose 20 MG; Start 11/11/18 at 09:00 Meropenem/Sodium Chloride 50 ml @ 100 mls/hr Q8 IVPB Last administered on 11/13/18 06:29; Admin Dose 100 MLS/HR; Start 11/11/18 at 22:00 Doxycycline Hyclate 100 mg/ Sodium Chloride 250 ml @ 250 mls/hr Q12 IVPB Last administered on 11/13/18 09:50; Admin Dose 250 MLS/HR; Start 11/11/18 at 21:00 Morphine Sulfate (morphine) 2 mg Q2 IV Last administered on 11/13/18 10:58; Admin Dose 2 MG; Start 11/12/18 at 15:00 Lorazepam (Ativan) 1 mg HS PRN PO ANXIETY Last administered on 11/13/18 03:47; Admin Dose 1 MG; Start 11/12/18 at 13:30 Promethazine HCl/ Codeine (Phenergan/ Codeine) 5 ml Q4H PRN PO COUGH; Start 11/12/18 at 15:00 Loperamide HCl (Imodium Cap) 2 mg QID PRN PO DIARRHEA; Start 11/12/18 at 15:00 Hydromorphone HCl (Dilaudid) 0.5 mg Q6H PRN IV PAIN LEVEL 6-10 Last administered on 11/13/18 06:56; Admin Dose 0.5 MG; Start 11/12/18 at 19:00 Acetaminophen/ Hydrocodone Bitart ([place] (10325)) 1 tab Q6H PRN PO PAIN Last administered on 11/13/18 08:56; Admin Dose 1 TAB; Start 11/12/18 at 19:00 Ketorolac Tromethamine (Toradol) 30 mg Q6H PRN IV PAIN Last administered on 11/13/18 04:30; Admin Dose 30 MG; Start 11/12/18 at 19:00; Stop 11/15/18 at 18:59 Ondansetron HCl (Zofran Inj) 4 mg Q6H PRN IV NAUSEA AND/OR VOMITING Last administered on 11/13/18 08:47; Admin Dose 4 MG; Start 11/12/18 at 19:00 Famotidine (Pepcid) 20 mg BID PO Last administered on 11/13/18 08:56; Admin Dose 20 MG; Start 11/12/18 at 21:00 Enoxaparin Sodium (Lovenox) 40 mg DAILY@07 SC ; Start 11/13/18 at 07:00 Acetaminophen 100 ml @ 400 mls/hr Q6H IVPB Last administered on 11/13/18 00:42; Admin Dose 400 MLS/HR; Start 11/12/18 at 19:00; Stop 11/13/18 at 18:59 Norepinephrine 250 ml @ 1.875 mls/ hr TITRATE IV ; Start 11/12/18 at 21:00 Dextrose/Sodium Chloride 1,000 ml @ 100 mls/hr Q10H IV Last administered on 11/13/18 10:57; Admin Dose 100 MLS/HR; Start 11/13/18 at 10:30 OLMAN ZARATE NP Nov 13, 2018 11:30
[2018-11-13] MEDS: HYDROmorphONE 0.2 MG/ML PCA IV SCH (15:24)
--- NOTE | 2018-11-13 16:31 | PN ---
Date/Time of Note Date/Time of Note DATE: 11/13/18 TIME: 16:25 Assessment/Plan VTE Prophylaxis Risk score (from Ns)>0 risk: 7 SCD applied (from Ns): Yes Pharmacological prophylaxis: heparin Lines/Catheters IV Catheter Type (from Nrsg): A Line Urinary Cath still in place: Yes Reason Cath still needed: urinary retention Assessment/Plan Hospital Course EXAM Well appeariang NAD AOx3 Breathign comfortably Chest tube in R chest Clear lungs RRR A/P: 58 yo male with h/o COPD presents wtih parapneumonic effusion s/p VATS and chest tube Empyema from pneumonia: - s/p VATS, continue abx per ID, await culture data - Chest tube management per CV surgery ALEKSEY: - Resolved Result Diagram: 11/13/18 1332 11/13/18 0500 Results 24hrs Laboratory Tests Test 11/12/18 18:14 11/12/18 19:18 11/12/18 23:48 11/13/18 05:00 Blood Gas Blood arterial Specimen Source Arterial Blood 11/12/2018 6:10: Date Drawn 16 PM Arterial Blood 7.447 pH (Temp corrected) Arterial Blood 25.8 L pCO2 (Temp correct) Arterial Blood 82.1 pO2 (Temp corrected) Arterial Blood 17.4 L HCO3 Arterial Blood -5.5 L Base Excess Arterial Blood 95.5 Oxygen Saturatio n Hitesh Test N/A Arterial Blood A-Line Gas Puncture Site Arterial 0.3 Blood Carboxyhem oglobin Arterial Blood 0.2 Methemoglobin Blood Gas A-a O2 605.1 H Differential Oxyhemoglobin 95.0 Percent Blood Gas 37.0 Temperature Blood Gas 10.0 Respiration Rate Blood Gas Actual 10 Respiration Rate Blood Gas VENT - PC Modality FiO2 100.0 Blood Gas 1 Inspiratory Time Blood Gas Tidal 700.0 Volume Blood Gas High 7.0 PEEP Setting Blood Gas N SANTOS CRUZ Critical Value Read Back Blood Gas Hilda PIRES RCP Notified Whom Blood Gas 11/12/2018 6:28: Notified Time 07 PM White Blood 26.8 #H 16.4 #H Count Red Blood Count 3.43 L 2.52 #L Hemoglobin 10.0 L 7.4 #L Hematocrit 29.2 L 21.7 #L Mean Corpuscular 85.1 86.1 Volume Mean Corpuscular 29.2 29.4 Hemoglobin Mean Corpuscular 34.2 34.1 Hemoglobin Lucy nt Red Cell 14.6 H 14.6 H Distribution Width Platelet Count 529 #H 371 # Mean Platelet 9.6 9.9 Volume Immature 2.100 H 1.400 H Granulocytes % Neutrophils % 84.5 H Segmented 88 H Neutrophils % (Manual) Band Neutrophils 4 % (Manual) Lymphocytes % 7.3 L Lymphocytes % 4 L (Manual) Monocytes % 6.3 Monocytes % 3 (Manual) Eosinophils % 0.2 Basophils % 0.3 Basophils % 1 (Manual) Nucleated Red 0.0 0.0 Blood Cells % Immature 0.560 H 0.230 H Granulocytes # Neutrophils # 13.8 H Neutrophils # 23.9 H (Manual) Band Neutrophils 1.0 H # Lymphocytes 1.0 (Manual) Lymphocytes # 1.2 Monocytes # 1.0 H Monocytes # 0.8 (Manual) Eosinophils # 0.0 Basophils # 0.1 Basophils # 0.2 H (Manual) Nucleated Red 0.0 Blood Cells # Pathologist Review (Hematolo gy) Platelet NORMAL Estimate Giant Platelets 1 H Poikilocytosis 1+ Ovalocytes 1+ Path Consult ROBSON FERRERA Signing Patholog MD ist Bedside Glucose 119 Sodium Level 136 Potassium Level 4.9 Chloride Level 110 Carbon Dioxide 20 L Level Anion Gap 6 Blood Urea 18 Nitrogen Creatinine 1.03 Est Glomerular > 60 Filtrat Rate mL/min Glucose Level 138 Calcium Level 8.2 L Magnesium Level 2.1 Test 11/13/18 13:32 Hemoglobin 7.5 L Hematocrit 22.7 L Subjective 24 Hr Interval Summary Free Text/Dictation Having some pain Relieved with IV analgesics breathing comfortably still with couhg Exam/Review of Systems Exam Vitals Vital Signs Date Temp Pulse Resp B/P (MAP) Pulse Ox O2 O2 Flow FiO2 Time Delivery Rate 11/13/18 16 16:00 11/13/18 77 115/68 91 15:00 (84) 11/13/18 98.4 Nasal 12:00 Cannula 11/13/18 2.0 08:00 11/13/18 27 04:46 Intake and Output 11/12/18 11/12/18 11/13/18 1515:00 23:00 07:00 IntakeIntake Total 3090 ml 1450 ml OutputOutput Total 100 ml 520 ml 590 ml BalanceBalance -100 ml 2570 ml 860 ml Results Results 24hrs Laboratory Tests Test 11/12/18 18:14 11/12/18 19:18 11/12/18 23:48 11/13/18 05:00 Blood Gas Blood arterial Specimen Source Arterial Blood 11/12/2018 6:10: Date Drawn 16 PM Arterial Blood 7.447 pH (Temp corrected) Arterial Blood 25.8 L pCO2 (Temp correct) Arterial Blood 82.1 pO2 (Temp corrected) Arterial Blood 17.4 L HCO3 Arterial Blood -5.5 L Base Excess Arterial Blood 95.5 Oxygen Saturatio n Hitesh Test N/A Arterial Blood A-Line Gas Puncture Site Arterial 0.3 Blood Carboxyhem oglobin Arterial Blood 0.2 Methemoglobin Blood Gas A-a O2 605.1 H Differential Oxyhemoglobin 95.0 Percent Blood Gas 37.0 Temperature Blood Gas 10.0 Respiration Rate Blood Gas Actual 10 Respiration Rate Blood Gas VENT - PC Modality FiO2 100.0 Blood Gas 1 Inspiratory Time Blood Gas Tidal 700.0 Volume Blood Gas High 7.0 PEEP Setting Blood Gas N SANTOS CRUZ Critical Value Read Back Blood Gas Hilda PIRES [facility] Notified Whom Blood Gas 11/12/2018 6:28: Notified Time 07 PM White Blood 26.8 #H 16.4 #H Count Red Blood Count 3.43 L 2.52 #L Hemoglobin 10.0 L 7.4 #L Hematocrit 29.2 L 21.7 #L Mean Corpuscular 85.1 86.1 Volume Mean Corpuscular 29.2 29.4 Hemoglobin Mean Corpuscular 34.2 34.1 Hemoglobin Lucy nt Red Cell 14.6 H 14.6 H Distribution Width Platelet Count 529 #H 371 # Mean Platelet 9.6 9.9 Volume Immature 2.100 H 1.400 H Granulocytes % Neutrophils % 84.5 H Segmented 88 H Neutrophils % (Manual) Band Neutrophils 4 % (Manual) Lymphocytes % 7.3 L Lymphocytes % 4 L (Manual) Monocytes % 6.3 Monocytes % 3 (Manual) Eosinophils % 0.2 Basophils % 0.3 Basophils % 1 (Manual) Nucleated Red 0.0 0.0 Blood Cells % Immature 0.560 H 0.230 H Granulocytes # Neutrophils # 13.8 H Neutrophils # 23.9 H (Manual) Band Neutrophils 1.0 H # Lymphocytes 1.0 (Manual) Lymphocytes # 1.2 Monocytes # 1.0 H Monocytes # 0.8 (Manual) Eosinophils # 0.0 Basophils # 0.1 Basophils # 0.2 H (Manual) Nucleated Red 0.0 Blood Cells # Pathologist Review (Hematolo gy) Platelet NORMAL Estimate Giant Platelets 1 H Poikilocytosis 1+ Ovalocytes 1+ Path Consult ROBSON FERRERA Signing Patholog , ist Bedside Glucose 119 Sodium Level 136 Potassium Level 4.9 Chloride Level 110 Carbon Dioxide 20 L Level Anion Gap 6 Blood Urea 18 Nitrogen Creatinine 1.03 Est Glomerular > 60 Filtrat Rate mL/min Glucose Level 138 Calcium Level 8.2 L Magnesium Level 2.1 Test 11/13/18 13:32 Hemoglobin 7.5 L Hematocrit 22.7 L Medications Medication Current Medications IV Flush (NS 3 ml) 3 ml PER PROTOCOL IV ; Start 11/10/18 at 06:00 Acetaminophen (Tylenol Tab) 650 mg Q6H PRN PO .PAIN 1-3 OR TEMP Last administered on 11/11/18 19:50; Admin Dose 650 MG; Start 11/10/18 at 06:00 Albuterol/ Ipratropium (Duoneb) 3 ml Q2H RESP THERAPY PRN HHN SHORTNESS OF BREATH Last administered on 11/12/18 11:51; Admin Dose 3 ML; Start 11/10/18 at 06:00 Amlodipine Besylate (Norvasc) 5 mg DAILY PO Last administered on 11/12/18 08:44; Admin Dose 5 MG; Start 11/11/18 at 09:00 Levothyroxine Sodium (Synthroid) 50 mcg BEFORE BREAKFAST PO Last administered on 11/13/18 06:30; Admin Dose 50 MCG; Start 11/11/18 at 07:00 Lisinopril (Zestril) 20 mg DAILY PO Last administered on 11/12/18 08:43; Admin Dose 20 MG; Start 11/11/18 at 09:00 Meropenem/Sodium Chloride 50 ml @ 100 mls/hr Q8 IVPB Last administered on 11/13/18 13:46; Admin Dose 100 MLS/HR; Start 11/11/18 at 22:00 Doxycycline Hyclate 100 mg/ Sodium Chloride 250 ml @ 250 mls/hr Q12 IVPB Last administered on 11/13/18 09:50; Admin Dose 250 MLS/HR; Start 11/11/18 at 21:00 Lorazepam (Ativan) 1 mg HS PRN PO ANXIETY Last administered on 11/13/18at 03:47; Admin Dose 1 MG; Start 11/12/18 at 13:30 Promethazine HCl/ Codeine (Phenergan/ Codeine) 5 ml Q4H PRN PO COUGH; Start 11/12/18 at 15:00 Loperamide HCl (Imodium Cap) 2 mg QID PRN PO DIARRHEA; Start 11/12/18 at 15:00 Hydromorphone HCl (Dilaudid) 0.5 mg Q6H PRN IV PAIN LEVEL 6-10 Last administered on 11/13/18at 13:47; Admin Dose 0.5 MG; Start 11/12/18 at 19:00; Status Hold Acetaminophen/ Hydrocodone Bitart ([place] (10/325)) 1 tab Q6H PRN PO PAIN Last administered on 11/13/18at 12:55; Admin Dose 1 TAB; Start 11/12/18 at 19:00 Ketorolac Tromethamine (Toradol) 30 mg Q6H PRN IV PAIN Last administered on 11/13/18at 04:30; Admin Dose 30 MG; Start 11/12/18 at 19:00; Stop 11/15/18 at 18:59; Status Hold Ondansetron HCl (Zofran Inj) 4 mg Q6H PRN IV NAUSEA AND/OR VOMITING Last administered on 11/13/18at 08:47; Admin Dose 4 MG; Start 11/12/18 at 19:00 Famotidine (Pepcid) 20 mg BID PO Last administered on 11/13/18at 08:56; Admin Dose 20 MG; Start 11/12/18 at 21:00 Enoxaparin Sodium (Lovenox) 40 mg DAILY@07 SC ; Start 11/13/18 at 07:00 Acetaminophen 100 ml @ 400 mls/hr Q6H IVPB Last administered on 11/13/18at 00:42; Admin Dose 400 MLS/HR; Start 11/12/18 at 19:00; Stop 11/13/18 at 18:59; Status Hold Norepinephrine 250 ml @ 1.875 mls/ hr TITRATE IV ; Start 11/12/18 at 21:00 Dextrose/Sodium Chloride 1,000 ml @ 100 mls/hr Q10H IV Last administered on 11/13/18at 10:57; Admin Dose 100 MLS/HR; Start 11/13/18 at 10:30 Hydromorphone HCl (Dilaudid [employer]) 0 MG/HR CONTINUOUS RATE ... Q4PCA IV Last administered on 11/13/18at 15:24; Admin Dose 6 MG; Start 11/13/18 at 15:00 KYLE CHARLTON MD Nov 13, 2018 16:31
[2018-11-14] VITALS (15 sets, daily range): BP systolic 93–131; BP diastolic 47–80; PULSE 77–94; RESP 18–31
[2018-11-14] MEDS: HYDROCODONE/APAP (10/325) TAB PO PRN ×4 (04:17→20:18)
[2018-11-14] MEDS: MEROPENEM 1 GM/50ML(PMX) 50 ML IVPB SCH ×3 (05:39→22:48)
[2018-11-14] MEDS: DEXTROSE 5%-0.45% NACL 1,000 ML IV SCH ×2 (06:37→16:01)
[2018-11-14] MEDS: LEVOTHYROXINE 50 MCG TAB PO SCH (06:45)
[2018-11-14] MEDS: ENOXAPARIN 40 MG/0.4 ML SYG SC SCH (07:00)
[2018-11-14] MEDS: DOXYCYCLINE 100 MG in SOD CHLORIDE 0.9% 250 ML IVPB SCH (08:13)
[2018-11-14] MEDS: AMLODIPINE 5 MG TAB PO SCH (08:14)
[2018-11-14] MEDS: FAMOTIDINE 20 MG TAB PO SCH ×2 (08:14→20:18)
[2018-11-14] MEDS: LISINOPRIL 20 MG TAB PO SCH (08:14)
[2018-11-14] MEDS: HYDROmorphONE 0.2 MG/ML PCA IV SCH ×2 (08:22→22:00)
--- NOTE | 2018-11-14 09:34 | CONS ---
Assessment/Plan Assessment/Plan Assessment/Plan (Daily) Chest x-ray was reviewed from today which is showing right-sided infiltrative changes. Right-sided chest tube in place. Assessment and recommendations; 1. Patient status post right VATS due to empyema clinically improving. Still having significant drainage through chest tube. 2. Anemia. Continue current supportive care. Patient will need to have GI workup done for evaluation of anemia. Monitor H&H. Transfer to medical floor. Consultation Date/Type/Reason Admit Date/Time Nov 10, 2018 at 05:13 Initial Consult Date 11/12/18 Type of Consult Pulmonary Reason for Consultation Patient's condition is stable. Complains of very minimal cough. Denies any significant chest pain. Denies any shortness of breath. General exam; elderly male, awake alert, currently in no distress. Requesting Provider: LORI VÁZQUEZ MD, [facility] Date/Time of Note DATE: 11/14/18 TIME: 09:31 Exam/Review of Systems Exam Vitals Vital Signs Date Temp Pulse Resp B/P (MAP) Pulse Ox O2 O2 Flow FiO2 Time Delivery Rate 11/14/18 18 08:00 11/14/18 86 08:00 11/14/18 2.0 07:15 11/13/18 120/77 88 18:00 (91) 11/13/18 98.7 16:00 11/13/18 Nasal 12:00 Cannula 11/13/18 27 04:46 Intake and Output 11/13/18 11/13/18 11/14/18 1515:00 23:00 07:00 IntakeIntake Total 1550 ml 610 ml OutputOutput Total 570 ml 240 ml 100 ml BalanceBalance 980 ml 370 ml -100 ml Exam H EENT exam; supple neck, no JVD. No lymphadenopathy. Midline trachea. No thyromegaly. Patient has fair dentition. No neck masses. Chest exam; diminished but clear breath sounds. S1-S2 audible, no murmurs. Regular rhythm. Right-sided chest tube in place. Abdomen exam; soft, scaphoid. Nontender. No organomegaly. Bowel sounds audible. Extremity exam; no peripheral edema or clubbing. CONTINUOUS IMPROVEMENT FACILITATOR exam; no focal deficit. Results Result Diagram: 11/14/18 0454 11/14/18 0454 Results 24hrs Laboratory Tests Test 11/13/18 13:32 11/14/18 04:54 Hemoglobin 7.5 L 7.2 L Hematocrit 22.7 L 22.0 L White Blood Count 13.9 H Red Blood Count 2.50 L Mean Corpuscular Volume 88.0 Mean Corpuscular Hemoglobin 28.8 L Mean Corpuscular Hemoglobin Concent 32.7 Red Cell Distribution Width 14.6 H Platelet Count 377 Mean Platelet Volume 10.0 Immature Granulocytes % 1.400 H Neutrophils % 78.1 H Lymphocytes % 10.4 L Monocytes % 6.6 Eosinophils % 3.2 Basophils % 0.3 Nucleated Red Blood Cells % 0.0 Immature Granulocytes # 0.190 H Neutrophils # 10.8 H Lymphocytes # 1.4 Monocytes # 0.9 Eosinophils # 0.5 Basophils # 0.0 Nucleated Red Blood Cells # 0.0 Sodium Level 133 L Potassium Level 4.7 Chloride Level 106 Carbon Dioxide Level 22 Anion Gap 5 Blood Urea Nitrogen 15 Creatinine 0.73 Est Glomerular Filtrat Rate mL/min > 60 Glucose Level 112 Calcium Level 8.1 L Magnesium Level 1.9 Iron Level < 10 L Total Iron Binding Capacity 190 L Percent Iron Saturation Ferritin 595.0 H Medications Medication Current Medications IV Flush (NS 3 ml) 3 ml PER PROTOCOL IV ; Start 11/10/18 at 06:00 Acetaminophen (Tylenol Tab) 650 mg Q6H PRN PO .PAIN 1-3 OR TEMP Last administered on 11/11/18 19:50; Admin Dose 650 MG; Start 11/10/18 at 06:00 Albuterol/ Ipratropium (Duoneb) 3 ml Q2H RESP THERAPY PRN HHN SHORTNESS OF BREATH Last administered on 11/12/18at 11:51; Admin Dose 3 ML; Start 11/10/18 at 06:00 Amlodipine Besylate (Norvasc) 5 mg DAILY PO Last administered on 11/14/18 08:14; Admin Dose 5 MG; Start 11/11/18 at 09:00 Levothyroxine Sodium (Synthroid) 50 mcg BEFORE BREAKFAST PO Last administered on 11/14/18 06:45; Admin Dose 50 MCG; Start 11/11/18 at 07:00 Lisinopril (Zestril) 20 mg DAILY PO Last administered on 11/14/18 08:14; Admin Dose 20 MG; Start 11/11/18 at 09:00 Meropenem/Sodium Chloride 50 ml @ 100 mls/hr Q8 IVPB Last administered on 11/14/18 05:39; Admin Dose 100 MLS/HR; Start 11/11/18 at 22:00 Doxycycline Hyclate 100 mg/ Sodium Chloride 250 ml @ 250 mls/hr Q12 IVPB Last administered on 11/14/18 08:13; Admin Dose 250 MLS/HR; Start 11/11/18 at 21:00 Lorazepam (Ativan) 1 mg HS PRN PO ANXIETY Last administered on 11/13/18 22:33; Admin Dose 1 MG; Start 11/12/18 at 13:30 Promethazine HCl/ Codeine (Phenergan/ Codeine) 5 ml Q4H PRN PO COUGH; Start 11/12/18 at 15:00 Loperamide HCl (Imodium Cap) 2 mg QID PRN PO DIARRHEA; Start 11/12/18 at 15:00 Hydromorphone HCl (Dilaudid) 0.5 mg Q6H PRN IV PAIN LEVEL 6-10 Last administered on 11/13/18 13:47; Admin Dose 0.5 MG; Start 11/12/18 at 19:00; Status Hold Acetaminophen/ Hydrocodone Bitart ([place] (10/325)) 1 tab Q6H PRN PO PAIN Last administered on 11/14/18 07:50; Admin Dose 1 TAB; Start 11/12/18 at 19:00 Ketorolac Tromethamine (Toradol) 30 mg Q6H PRN IV PAIN Last administered on 11/13/18 04:30; Admin Dose 30 MG; Start 11/12/18 at 19:00; Stop 11/15/18 at 18:59; Status Hold Ondansetron HCl (Zofran Inj) 4 mg Q6H PRN IV NAUSEA AND/OR VOMITING Last administered on 11/13/18 08:47; Admin Dose 4 MG; Start 11/12/18 at 19:00 Famotidine (Pepcid) 20 mg BID PO Last administered on 11/14/18 08:14; Admin Dose 20 MG; Start 11/12/18 at 21:00 Enoxaparin Sodium (Lovenox) 40 mg DAILY@07 SC ; Start 11/13/18 at 07:00 Norepinephrine 250 ml @ 1.875 mls/ hr TITRATE IV ; Start 11/12/18 at 21:00 Dextrose/Sodium Chloride 1,000 ml @ 100 mls/hr Q10H IV Last administered on 11/14/18at 06:37; Admin Dose 100 MLS/HR; Start 11/13/18 at 10:30 Hydromorphone HCl (Dilaudid LOG ROPER) 0 MG/HR CONTINUOUS RATE ... Q4PCA IV Last administered on 11/14/18at 08:22; Admin Dose 6 MG; Start 11/13/18 at 15:00 HANNAH YADAV Nov 14, 2018 09:34
--- NOTE | 2018-11-14 13:00 | CONS ---
Assessment/Plan Assessment/Plan Hospital Course (Demo Recall) Patient is alert feels much better looks comfortable no fevers overnight. WBC 13.9 neutrophils 78.1 BUN 15 creatinine 0.73 Intraoperative culture grew alphahemolytic strep species preliminary Antimicrobials: Doxycycline, meropenem Physical examination: Well-nourished well-developed elderly man who is alert in no distress. Head atraumatic normocephalic sclera nonicteric. Neck is supple. Chest rise symmetrical breath sounds with scattered rhonchi on the right. Heart: S1-S2. Abdomen distended soft bowel sounds present. Extremities without cyanosis. Assessment: Empyema status post right VATS procedure 11/12/18 Status post sepsis on admission Hypertension Status post acute kidney injury Plan: Patient is doing better, we are going to discontinue doxycycline, await for final cultures Consultation Date/Type/Reason Admit Date/Time Nov 10, 2018 at 05:13 Initial Consult Date 11/12/18 Type of Consult id Requesting Provider: LORI VÁZQUEZ MD, [facility] Date/Time of Note DATE: 11/14/18 TIME: 12:59 Exam/Review of Systems Exam Vitals Vital Signs Date Temp Pulse Resp B/P (MAP) Pulse Ox O2 O2 Flow FiO2 Time Delivery Rate 11/14/18 88 12:00 11/14/18 16 12:00 11/14/18 127/77 89 Room Air 11:00 (94) 11/14/18 99.2 08:00 11/14/18 2.0 07:15 11/13/18 27 04:46 Intake and Output 11/13/18 11/13/18 11/14/18 1414:59 22:59 06:59 IntakeIntake Total 1700 ml 710 ml OutputOutput Total 670 ml 240 ml 100 ml BalanceBalance 1030 ml 470 ml -100 ml Results Result Diagram: 11/14/18 0454 11/14/18 0454 Results 24hrs Laboratory Tests Test 11/13/18 13:32 11/14/18 04:54 Hemoglobin 7.5 L 7.2 L Hematocrit 22.7 L 22.0 L White Blood Count 13.9 H Red Blood Count 2.50 L Mean Corpuscular Volume 88.0 Mean Corpuscular Hemoglobin 28.8 L Mean Corpuscular Hemoglobin Concent 32.7 Red Cell Distribution Width 14.6 H Platelet Count 377 Mean Platelet Volume 10.0 Immature Granulocytes % 1.400 H Neutrophils % 78.1 H Lymphocytes % 10.4 L Monocytes % 6.6 Eosinophils % 3.2 Basophils % 0.3 Nucleated Red Blood Cells % 0.0 Immature Granulocytes # 0.190 H Neutrophils # 10.8 H Lymphocytes # 1.4 Monocytes # 0.9 Eosinophils # 0.5 Basophils # 0.0 Nucleated Red Blood Cells # 0.0 Sodium Level 133 L Potassium Level 4.7 Chloride Level 106 Carbon Dioxide Level 22 Anion Gap 5 Blood Urea Nitrogen 15 Creatinine 0.73 Est Glomerular Filtrat Rate mL/min > 60 Glucose Level 112 Calcium Level 8.1 L Magnesium Level 1.9 Iron Level < 10 L Total Iron Binding Capacity 190 L Percent Iron Saturation Ferritin 595.0 H Medications Medication Current Medications IV Flush (NS 3 ml) 3 ml PER PROTOCOL IV ; Start 11/10/18 at 06:00 Acetaminophen (Tylenol Tab) 650 mg Q6H PRN PO .PAIN 1-3 OR TEMP Last administered on 11/11/18 19:50; Admin Dose 650 MG; Start 11/10/18 at 06:00 Albuterol/ Ipratropium (Duoneb) 3 ml Q2H RESP THERAPY PRN HHN SHORTNESS OF BREATH Last administered on 11/12/18 11:51; Admin Dose 3 ML; Start 11/10/18 at 06:00 Amlodipine Besylate (Norvasc) 5 mg DAILY PO Last administered on 11/14/18 08:14; Admin Dose 5 MG; Start 11/11/18 at 09:00 Levothyroxine Sodium (Synthroid) 50 mcg BEFORE BREAKFAST PO Last administered on 11/14/18 06:45; Admin Dose 50 MCG; Start 11/11/18 at 07:00 Lisinopril (Zestril) 20 mg DAILY PO Last administered on 11/14/18 08:14; Admin Dose 20 MG; Start 11/11/18 at 09:00 Meropenem/Sodium Chloride 50 ml @ 100 mls/hr Q8 IVPB Last administered on 11/14/18 05:39; Admin Dose 100 MLS/HR; Start 11/11/18 at 22:00 Doxycycline Hyclate 100 mg/ Sodium Chloride 250 ml @ 250 mls/hr Q12 IVPB Last administered on 11/14/18 08:13; Admin Dose 250 MLS/HR; Start 11/11/18 at 21:00 Lorazepam (Ativan) 1 mg HS PRN PO ANXIETY Last administered on 11/13/18 22:33; Admin Dose 1 MG; Start 11/12/18 at 13:30 Promethazine HCl/ Codeine (Phenergan/ Codeine) 5 ml Q4H PRN PO COUGH; Start 11/12/18 at 15:00 Loperamide HCl (Imodium Cap) 2 mg QID PRN PO DIARRHEA; Start 11/12/18 at 15:00 Hydromorphone HCl (Dilaudid) 0.5 mg Q6H PRN IV PAIN LEVEL 6-10 Last administered on 11/13/18 13:47; Admin Dose 0.5 MG; Start 11/12/18 at 19:00; Status Hold Acetaminophen/ Hydrocodone Bitart ([place] (10/325)) 1 tab Q6H PRN PO PAIN Last administered on 11/14/18 12:28; Admin Dose 1 TAB; Start 11/12/18 at 19:00 Ondansetron HCl (Zofran Inj) 4 mg Q6H PRN IV NAUSEA AND/OR VOMITING Last administered on 11/13/18 08:47; Admin Dose 4 MG; Start 11/12/18 at 19:00 Famotidine (Pepcid) 20 mg BID PO Last administered on 11/14/18 08:14; Admin Dose 20 MG; Start 11/12/18 at 21:00 Enoxaparin Sodium (Lovenox) 40 mg DAILY@07 SC ; Start 11/13/18 at 07:00 Dextrose/Sodium Chloride 1,000 ml @ 100 mls/hr Q10H IV Last administered on 11/14/18 06:37; Admin Dose 100 MLS/HR; Start 11/13/18 at 10:30 Hydromorphone HCl (Dilaudid VENEER SLICING MACHINE OPERATOR) 0 MG/HR CONTINUOUS RATE ... Q4PCA IV Last administered on 11/14/18 08:22; Admin Dose 6 MG; Start 11/13/18 at 15:00 OLMAN ZARATE NP Nov 14, 2018 13:00
[2018-11-14] MEDS: ONDANSETRON 4 MG INJ IV PRN ×2 (14:21→22:49)
--- NOTE | 2018-11-14 14:40 | PN ---
Date/Time of Note Date/Time of Note DATE: 11/14/18 TIME: 14:39 Assessment/Plan VTE Prophylaxis Risk score (from Nsg)>0 risk: 9 SCD applied (from Nsg): Yes Pharmacological prophylaxis: heparin Lines/Catheters IV Catheter Type (from Nrsg): Peripheral IV Urinary Cath still in place: Yes Reason Cath still needed: urinary retention Assessment/Plan Hospital Course EXAM Well appeariang NAD AOx3 Breathign comfortably Chest tube in R chest Clear lungs RRR A/P: 58 yo male with h/o COPD presents wtih parapneumonic effusion s/p VATS and chest tube Empyema from pneumonia: - s/p VATS, continue abx per ID, await culture data - Chest tube management per CV surgery ALEKSEY: - Resolved Result Diagram: 11/14/184 11/14/184 Results 24hrs Laboratory Tests Test 11/14/18 04:54 White Blood Count 13.9 H Red Blood Count 2.50 L Hemoglobin 7.2 L Hematocrit 22.0 L Mean Corpuscular Volume 88.0 Mean Corpuscular Hemoglobin 28.8 L Mean Corpuscular Hemoglobin Concent 32.7 Red Cell Distribution Width 14.6 H Platelet Count 377 Mean Platelet Volume 10.0 Immature Granulocytes % 1.400 H Neutrophils % 78.1 H Lymphocytes % 10.4 L Monocytes % 6.6 Eosinophils % 3.2 Basophils % 0.3 Nucleated Red Blood Cells % 0.0 Immature Granulocytes # 0.190 H Neutrophils # 10.8 H Lymphocytes # 1.4 Monocytes # 0.9 Eosinophils # 0.5 Basophils # 0.0 Nucleated Red Blood Cells # 0.0 Sodium Level 133 L Potassium Level 4.7 Chloride Level 106 Carbon Dioxide Level 22 Anion Gap 5 Blood Urea Nitrogen 15 Creatinine 0.73 Est Glomerular Filtrat Rate mL/min > 60 Glucose Level 112 Calcium Level 8.1 L Magnesium Level 1.9 Iron Level < 10 L Total Iron Binding Capacity 190 L Percent Iron Saturation Ferritin 595.0 H Subjective 24 Hr Interval Summary Free Text/Dictation About 500ccs out of chest tube Feels well Pain is controlled on SYRUP MAKER Exam/Review of Systems Exam Vitals Vital Signs Date Temp Pulse Resp B/P (MAP) Pulse Ox O2 O2 Flow FiO2 Time Delivery Rate 11/14/18 88 12:00 11/14/18 16 12:00 4/16/19 127/77 89 Room Air 11:00 (94) 11/14/18 99.2 08:00 11/14/18 2.0 07:15 11/13/18 27 04:46 Intake and Output 11/13/18 11/13/18 11/14/18 1515:00 23:00 07:00 IntakeIntake Total 1550 ml 610 ml 150 ml OutputOutput Total 570 ml 240 ml 100 ml BalanceBalance 980 ml 370 ml 50 ml Results Results 24hrs Laboratory Tests Test 11/14/18 04:54 White Blood Count 13.9 H Red Blood Count 2.50 L Hemoglobin 7.2 L Hematocrit 22.0 L Mean Corpuscular Volume 88.0 Mean Corpuscular Hemoglobin 28.8 L Mean Corpuscular Hemoglobin Concent 32.7 Red Cell Distribution Width 14.6 H Platelet Count 377 Mean Platelet Volume 10.0 Immature Granulocytes % 1.400 H Neutrophils % 78.1 H Lymphocytes % 10.4 L Monocytes % 6.6 Eosinophils % 3.2 Basophils % 0.3 Nucleated Red Blood Cells % 0.0 Immature Granulocytes # 0.190 H Neutrophils # 10.8 H Lymphocytes # 1.4 Monocytes # 0.9 Eosinophils # 0.5 Basophils # 0.0 Nucleated Red Blood Cells # 0.0 Sodium Level 133 L Potassium Level 4.7 Chloride Level 106 Carbon Dioxide Level 22 Anion Gap 5 Blood Urea Nitrogen 15 Creatinine 0.73 Est Glomerular Filtrat Rate mL/min > 60 Glucose Level 112 Calcium Level 8.1 L Magnesium Level 1.9 Iron Level < 10 L Total Iron Binding Capacity 190 L Percent Iron Saturation Ferritin 595.0 H Medications Medication Current Medications IV Flush (NS 3 ml) 3 ml PER PROTOCOL IV ; Start 11/10/18 at 06:00 Acetaminophen (Tylenol Tab) 650 mg Q6H PRN PO .PAIN 1-3 OR TEMP Last administered on 11/11/18at 19:50; Admin Dose 650 MG; Start 11/10/18 at 06:00 Albuterol/ Ipratropium (Duoneb) 3 ml Q2H RESP THERAPY PRN HHN SHORTNESS OF BREATH Last administered on 11/12/18at 11:51; Admin Dose 3 ML; Start 11/10/18 at 06:00 Amlodipine Besylate (Norvasc) 5 mg DAILY PO Last administered on 11/14/18at 08:14; Admin Dose 5 MG; Start 11/11/18 at 09:00 Levothyroxine Sodium (Synthroid) 50 mcg BEFORE BREAKFAST PO Last administered on 11/14/18 06:45; Admin Dose 50 MCG; Start 11/11/18 at 07:00 Lisinopril (Zestril) 20 mg DAILY PO Last administered on 11/14/18 08:14; Admin Dose 20 MG; Start 11/11/18 at 09:00 Meropenem/Sodium Chloride 50 ml @ 100 mls/hr Q8 IVPB Last administered on 11/14/18 05:39; Admin Dose 100 MLS/HR; Start 11/11/18 at 22:00 Lorazepam (Ativan) 1 mg HS PRN PO ANXIETY Last administered on 11/13/18 22:33; Admin Dose 1 MG; Start 11/12/18 at 13:30 Promethazine HCl/ Codeine (Phenergan/ Codeine) 5 ml Q4H PRN PO COUGH; Start 11/12/18 at 15:00 Loperamide HCl (Imodium Cap) 2 mg QID PRN PO DIARRHEA; Start 11/12/18 at 15:00 Hydromorphone HCl (Dilaudid) 0.5 mg Q6H PRN IV PAIN LEVEL 6-10 Last administered on 11/13/18 13:47; Admin Dose 0.5 MG; Start 11/12/18 at 19:00; Status Hold Acetaminophen/ Hydrocodone Bitart ([place] (10/325)) 1 tab Q6H PRN PO PAIN Last administered on 11/14/18 12:28; Admin Dose 1 TAB; Start 11/12/18 at 19:00 Ondansetron HCl (Zofran Inj) 4 mg Q6H PRN IV NAUSEA AND/OR VOMITING Last administered on 11/14/18 14:21; Admin Dose 4 MG; Start 11/12/18 at 19:00 Famotidine (Pepcid) 20 mg BID PO Last administered on 11/14/18 08:14; Admin Dose 20 MG; Start 11/12/18 at 21:00 Enoxaparin Sodium (Lovenox) 40 mg DAILY@07 SC ; Start 11/13/18 at 07:00 Dextrose/Sodium Chloride 1,000 ml @ 100 mls/hr Q10H IV Last administered on 4/16/19at 06:37; Admin Dose 100 MLS/HR; Start 11/13/18 at 10:30 Hydromorphone HCl (Dilaudid SYRUP MAKER) 0 MG/HR CONTINUOUS RATE ... Q4PCA IV Last administered on 11/14/18at 08:22; Admin Dose 6 MG; Start 11/13/18 at 15:00 KYLE CHARLTON MD Nov 14, 2018 14:40
[2018-11-14] MEDS ORDERED: LORAZEPAM 2 MG INJ IV ONE (16:00)
[2018-11-14] MEDS ORDERED: BISACODYL 10 MG SUPP PR PRN (18:00)
--- NOTE | 2018-11-14 18:32 | PN ---
Date/Time of Note Date/Time of Note DATE: 11/14/18 TIME: 18:31 Assessment/Plan Lines/Catheters IV Catheter Type (from Nrsg): Peripheral IV Becerril in Place (from Nrsg): Yes Assessment/Plan Assessment/Plan having nausea. cxr much improved. no air leak. place chest tube on water seal and try reglan for nausea Exam/Review of Systems Vital Signs Vitals Vital Signs Date Temp Pulse Resp B/P (MAP) Pulse Ox O2 O2 Flow FiO2 Time Delivery Rate 11/14/18 16 15:20 11/14/18 98.0 84 125/64 92 Room Air 14:49 (84) 11/14/18 2.0 07:15 11/13/18 27 04:46 Intake and Output 11/13/18 11/13/18 11/14/18 1515:00 23:00 07:00 IntakeIntake Total 1550 ml 610 ml 150 ml OutputOutput Total 570 ml 240 ml 100 ml BalanceBalance 980 ml 370 ml 50 ml Results Result Diagram: 11/14/18 0454 11/14/18 0454 DYLAN FINN MD Nov 14, 2018 18:32
[2018-11-14] MEDS: METOCLOPRAMIDE 10 MG INJ IV PRN (19:09)
[2018-11-14] MEDS: LORAZEPAM 1 MG TAB PO PRN (19:41)
[2018-11-15] MEDS: DEXTROSE 5%-0.45% NACL 1,000 ML IV SCH ×3 (00:44→22:26)
[2018-11-15] MEDS ORDERED: traZODone 50 MG TAB PO ONE (01:00)
[2018-11-15 02:00] VITALS: BP 117/74; PULSE 89; RESP 18
[2018-11-15] MEDS: METOCLOPRAMIDE 10 MG INJ IV PRN ×3 (02:20→16:13)
[2018-11-15] MEDS: HYDROCODONE/APAP (10/325) TAB PO PRN ×3 (02:20→19:04)
[2018-11-15] MEDS: HYDROmorphONE 0.2 MG/ML PCA IV SCH ×3 (06:01→19:40)
[2018-11-15] MEDS: MEROPENEM 1 GM/50ML(PMX) 50 ML IVPB SCH (06:17)
[2018-11-15] MEDS: LEVOTHYROXINE 50 MCG TAB PO SCH (06:17)
[2018-11-15] MEDS: ONDANSETRON 4 MG INJ IV PRN ×3 (06:21→19:03)
[2018-11-15] MEDS: ENOXAPARIN 40 MG/0.4 ML SYG SC SCH (06:28)
--- NOTE | 2018-11-15 07:51 | PN ---
Date/Time of Note Date/Time of Note DATE: 11/15/18 TIME: 07:47 Assessment/Plan Lines/Catheters IV Catheter Type (from Nrs): Saline Lock Ellis in Place (from Nrs): Yes Assessment/Plan Chief Complaint/Hosp Course s/p right decortication d/c ellis continue drainage check cxr am Subjective 24 Hr Interval Summary Constitutional: improved Feeding: baseline diet Pain Control: other (dilaudid tool and die machinist) Exam/Review of Systems Vital Signs Vitals Vital Signs Date Temp Pulse Resp B/P (MAP) Pulse Ox O2 O2 Flow FiO2 Time Delivery Rate 11/15/18 18 06:00 11/15/18 98.1 89 117/74 92 02:00 (88) 11/14/18 Room Air 14:49 11/14/18 2.0 07:15 11/13/18 27 04:46 Intake and Output 11/14/18 11/14/18 11/15/18 1515:00 23:00 07:00 IntakeIntake Total 1600 ml 200 ml 1375 ml OutputOutput Total 615 ml 550 ml 1000 ml BalanceBalance 985 ml -350 ml 375 ml Exam Constitutional: alert, oriented Psych: nl mood/affect ENMT: nl lips & teeth Neck: supple Respiratory: other (chest tube 1200 cc total 475 cc/24 tool and die machinist) Gastrointestinal: soft Genitourinary - Male: other (ellis) Musculoskeletal: nl extremities to inspection Neurological: SALES TECHNICIAN II-XII intact Results Result Diagram: 11/14/18 0454 11/14/18 0454 ORIANA ZAPIEN MD Nov 15, 2018 07:51
[2018-11-15 08:05] VITALS: BP 123/69; PULSE 86; RESP 18
[2018-11-15] MEDS: FAMOTIDINE 20 MG TAB PO SCH ×2 (08:39→20:16)
[2018-11-15] MEDS: AMLODIPINE 5 MG TAB PO SCH (08:39)
[2018-11-15] MEDS: LISINOPRIL 20 MG TAB PO SCH (08:40)
--- NOTE | 2018-11-15 12:19 | CONS ---
Assessment/Plan Assessment/Plan Hospital Course (Demo Recall) No events, looks comfortable, no fevers Intraoperative culture grew alphahemolytic strep species Antimicrobials: Meropenem Physical examination: Well-nourished well-developed elderly man who is alert in no distress. Head atraumatic normocephalic sclera nonicteric. Neck is supple. Chest rise symmetrical breath sounds with scattered rhonchi on the right. Heart: S1-S2. Abdomen distended soft bowel sounds present. Extremities without cyanosis. Assessment: Empyema status post right VATS procedure 11/12/18 Status post sepsis on admission Hypertension Status post acute kidney injury Plan: Stable, will change abx to Rocephin Consultation Date/Type/Reason Admit Date/Time Nov 10, 2018 at 05:13 Initial Consult Date 11/12/18 Type of Consult id Requesting Provider: LORI VÁZQUEZ MD, [facility] Date/Time of Note DATE: 11/15/18 TIME: 12:18 Exam/Review of Systems Exam Vitals Vital Signs Date Temp Pulse Resp B/P (MAP) Pulse Ox O2 O2 Flow FiO2 Time Delivery Rate 11/15/18 98.3 86 18 123/69 93 Room Air 08:05 (87) 11/14/18 2.0 07:15 11/13/18 27 04:46 Intake and Output 11/14/18 11/14/18 11/15/18 1515:00 23:00 07:00 IntakeIntake Total 1600 ml 200 ml 1375 ml OutputOutput Total 615 ml 550 ml 1000 ml BalanceBalance 985 ml -350 ml 375 ml Results Result Diagram: 11/14/18 0454 11/14/18 0454 Medications Medication Current Medications IV Flush (NS 3 ml) 3 ml PER PROTOCOL IV ; Start 11/10/18 at 06:00 Acetaminophen (Tylenol Tab) 650 mg Q6H PRN PO .PAIN 1-3 OR TEMP Last administered on 11/11/18at 19:50; Admin Dose 650 MG; Start 11/10/18 at 06:00 Albuterol/ Ipratropium (Duoneb) 3 ml Q2H RESP THERAPY PRN HHN SHORTNESS OF BREATH Last administered on 11/12/18at 11:51; Admin Dose 3 ML; Start 11/10/18 at 06:00 Amlodipine Besylate (Norvasc) 5 mg DAILY PO Last administered on 11/15/18 08:39; Admin Dose 5 MG; Start 11/11/18 at 09:00 Levothyroxine Sodium (Synthroid) 50 mcg BEFORE BREAKFAST PO Last administered on 11/15/18 06:17; Admin Dose 50 MCG; Start 11/11/18 at 07:00 Lisinopril (Zestril) 20 mg DAILY PO Last administered on 11/15/18 08:40; Admin Dose 20 MG; Start 11/11/18 at 09:00 Meropenem/Sodium Chloride 50 ml @ 100 mls/hr Q8 IVPB Last administered on 11/15/18 06:17; Admin Dose 100 MLS/HR; Start 11/11/18 at 22:00 Lorazepam (Ativan) 1 mg HS PRN PO ANXIETY Last administered on 11/14/18 19:41; Admin Dose 1 MG; Start 11/12/18 at 13:30 Promethazine HCl/ Codeine (Phenergan/ Codeine) 5 ml Q4H PRN PO COUGH; Start 11/12/18 at 15:00 Loperamide HCl (Imodium Cap) 2 mg QID PRN PO DIARRHEA; Start 11/12/18 at 15:00 Hydromorphone HCl (Dilaudid) 0.5 mg Q6H PRN IV PAIN LEVEL 6-10 Last administered on 11/13/18at 13:47; Admin Dose 0.5 MG; Start 11/12/18 at 19:00; Status Hold Acetaminophen/ Hydrocodone Bitart ([place] (10/325)) 1 tab Q6H PRN PO PAIN Last administered on 11/15/18 02:20; Admin Dose 1 TAB; Start 11/12/18 at 19:00 Ondansetron HCl (Zofran Inj) 4 mg Q6H PRN IV NAUSEA AND/OR VOMITING Last administered on 11/15/18 06:21; Admin Dose 4 MG; Start 11/12/18 at 19:00 Famotidine (Pepcid) 20 mg BID PO Last administered on 11/15/18 08:39; Admin Dose 20 MG; Start 11/12/18 at 21:00 Enoxaparin Sodium (Lovenox) 40 mg DAILY@07 SC ; Start 4/15/19 at 07:00 Dextrose/Sodium Chloride 1,000 ml @ 100 mls/hr Q10H IV Last administered on 11/15/18at 11:10; Admin Dose 100 MLS/HR; Start 11/13/18 at 10:30 Hydromorphone HCl (Dilaudid IRONWORKER) 0 MG/HR CONTINUOUS RATE ... Q4PCA IV Last administered on 11/15/18at 06:01; Admin Dose 6 MG; Start 11/13/18 at 15:00 Bisacodyl (Dulcolax Supp) 10 mg DAILY PRN [place] CONSTIPATION; Start 11/14/18 at 18:00 Metoclopramide HCl (Reglan) 10 mg Q6H PRN IV NAUSEA Last administered on 11/15/18at 08:40; Admin Dose 10 MG; Start 11/14/18 at 18:30 OLMAN ZARATE HANDY WORKER Nov 15, 2018 12:19
[2018-11-15] MEDS: CEFTRIAXONE 1 GM/50 ML (PMX) 50 ML IVPB SCH (12:52)
--- NOTE | 2018-11-15 14:00 | PN ---
Date/Time of Note Date/Time of Note DATE: 11/15/18 TIME: 14:00 Assessment/Plan VTE Prophylaxis Risk score (from Nsg)>0 risk: 7 SCD applied (from Nsg): Yes Pharmacological prophylaxis: heparin Lines/Catheters IV Catheter Type (from Nrsg): Saline Lock Urinary Cath still in place: Yes Reason Cath still needed: urinary retention Assessment/Plan Hospital Course EXAM Well appeariang NAD AOx3 Breathign comfortably Chest tube in R chest Clear lungs RRR A/P: 58 yo male with h/o COPD presents wtih parapneumonic effusion s/p VATS and chest tube Empyema from pneumonia: - s/p VATS, continue abx per ID, await culture data - Chest tube management per CV surgery - [employer]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 ALEKSEY: - Resolved Result Diagram: 11/14/18 0454 11/14/18 0454 Subjective 24 Hr Interval Summary Free Text/Dictation Drainage has slowed down a lot in chest tube Feels well Exam/Review of Systems Exam Vitals Vital Signs Date Temp Pulse Resp B/P (MAP) Pulse Ox O2 O2 Flow FiO2 Time Delivery Rate 11/15/18 18 13:00 11/15/18 98.3 86 123/69 93 Room Air 08:05 (87) 11/14/18 2.0 07:15 11/13/18 27 04:46 Intake and Output 11/14/18 11/14/18 11/15/18 1515:00 23:00 07:00 IntakeIntake Total 1600 ml 200 ml 1375 ml OutputOutput Total 615 ml 550 ml 1000 ml BalanceBalance 985 ml -350 ml 375 ml Medications Medication Current Medications IV Flush (NS 3 ml) 3 ml PER PROTOCOL IV ; Start 11/10/18 at 06:00 Acetaminophen (Tylenol Tab) 650 mg Q6H PRN PO .PAIN 1-3 OR TEMP Last administered on 11/11/18at 19:50; Admin Dose 650 MG; Start 11/10/18 at 06:00 Albuterol/ Ipratropium (Duoneb) 3 ml Q2H RESP THERAPY PRN HHN SHORTNESS OF BREATH Last administered on 11/12/18at 11:51; Admin Dose 3 ML; Start 11/10/18 at 06:00 Amlodipine Besylate (Norvasc) 5 mg DAILY PO Last administered on 11/15/18 08:39; Admin Dose 5 MG; Start 11/11/18 at 09:00 Levothyroxine Sodium (Synthroid) 50 mcg BEFORE BREAKFAST PO Last administered on 11/15/18 06:17; Admin Dose 50 MCG; Start 11/11/18 at 07:00 Lisinopril (Zestril) 20 mg DAILY PO Last administered on 11/15/18 08:40; Admin Dose 20 MG; Start 11/11/18 at 09:00 Lorazepam (Ativan) 1 mg HS PRN PO ANXIETY Last administered on 11/14/18 19:41; Admin Dose 1 MG; Start 11/12/18 at 13:30 Promethazine HCl/ Codeine (Phenergan/ Codeine) 5 ml Q4H PRN PO COUGH; Start 11/12/18 at 15:00 Loperamide HCl (Imodium Cap) 2 mg QID PRN PO DIARRHEA; Start 11/12/18 at 15:00 Hydromorphone HCl (Dilaudid) 0.5 mg Q6H PRN IV PAIN LEVEL 6-10 Last administere d on 11/13/18 13:47; Admin Dose 0.5 MG; Start 11/12/18 at 19:00; Status Hold Acetaminophen/ Hydrocodone Bitart ([place] (10/325)) 1 tab Q6H PRN PO PAIN Last administered on 11/15/18 12:54; Admin Dose 1 TAB; Start 11/12/18 at 19:00 Ondansetron HCl (Zofran Inj) 4 mg Q6H PRN IV NAUSEA AND/OR VOMITING Last administered on 11/15/18 12:52; Admin Dose 4 MG; Start 11/12/18 at 19:00 Famotidine (Pepcid) 20 mg BID PO Last administered on 11/15/18 08:39; Admin Dose 20 MG; Start 11/12/18 at 21:00 Enoxaparin Sodium (Lovenox) 40 mg DAILY@07 SC ; Start 11/13/18 at 07:00 Dextrose/Sodium Chloride 1,000 ml @ 100 mls/hr Q10H IV Last administered on 11/15/18at 11:10; Admin Dose 100 MLS/HR; Start 11/13/18 at 10:30 Hydromorphone HCl (Dilaudid [employer] SAL[employer]ERSON) 0 MG/HR CONTINUOUS RATE ... Q4PCA IV Last administered on 11/15/18at 12:59; Admin Dose 6 MG; Start 11/13/18 at 15:00 Bisacodyl (Dulcolax Supp) 10 mg DAILY PRN [place] CONSTIPATION; Start 11/14/18 at 18:00 Metoclopramide HCl (Reglan) 10 mg Q6H PRN IV NAUSEA Last administered on 11/15/18at 08:40; Admin Dose 10 MG; Start 11/14/18 at 18:30 Ceftriaxone Sodium 50 ml @ 100 mls/hr Q24H IVPB Last administered on 11/15/18at 12:52; Admin Dose 100 MLS/HR; Start 11/15/18 at 12:30 KYLE CHARLTON MD Nov 15, 2018 14:00
[2018-11-15 15:10] VITALS: BP 131/73; PULSE 94; RESP 18
[2018-11-15 20:00] VITALS: BP 128/72; PULSE 92; RESP 19
[2018-11-15] MEDS: LORAZEPAM 1 MG TAB PO PRN (22:26)
[2018-11-16] MEDS: HYDROCODONE/APAP (10/325) TAB PO PRN ×4 (01:01→23:02)
[2018-11-16 01:54] VITALS: BP 126/64; PULSE 94; RESP 20
[2018-11-16] MEDS: ONDANSETRON 4 MG INJ IV PRN ×2 (04:07→12:50)
[2018-11-16] MEDS: LEVOTHYROXINE 50 MCG TAB PO SCH (06:27)
[2018-11-16] MEDS: ENOXAPARIN 40 MG/0.4 ML SYG SC SCH (06:28)
[2018-11-16] MEDS: METOCLOPRAMIDE 10 MG INJ IV PRN ×3 (06:31→23:02)
[2018-11-16] MEDS: HYDROmorphONE 0.2 MG/ML PCA IV SCH ×2 (07:52→19:58)
[2018-11-16 08:00] VITALS: BP 126/62; PULSE 88; RESP 18
[2018-11-16] MEDS: DEXTROSE 5%-0.45% NACL 1,000 ML IV SCH ×3 (08:54→19:46)
[2018-11-16] MEDS: AMLODIPINE 5 MG TAB PO SCH (08:55)
[2018-11-16] MEDS: FAMOTIDINE 20 MG TAB PO SCH ×2 (08:55→20:00)
[2018-11-16] MEDS: LISINOPRIL 20 MG TAB PO SCH (08:55)
--- NOTE | 2018-11-16 12:03 | CONS ---
Assessment/Plan Assessment/Plan Hospital Course (Demo Recall) All noted Intraoperative culture grew alphahemolytic strep species Antimicrobials: Rocephin Physical examination: Well-nourished well-developed elderly man who is alert in no distress. Head atraumatic normocephalic sclera nonicteric. Neck is supple. Chest rise symmetrical breath sounds with scattered rhonchi on the right. Heart: S1-S2. Abdomen distended soft bowel sounds present. Extremities without cyanosis. Assessment: Strep PNA /empyema status post right VATS procedure 11/12/18 Status post sepsis on admission Hypertension Status post acute kidney injury Plan: Remains stable, anticipate treating with IV Rocephin for 4 weeks, consider PICC Consultation Date/Type/Reason Admit Date/Time Nov 10, 2018 at 05:13 Initial Consult Date 11/12/18 Type of Consult id Requesting Provider: LORI VÁZQUEZ MD, [facility] Date/Time of Note DATE: 11/16/18 TIME: 12:01 Exam/Review of Systems Exam Vitals Vital Signs Date Temp Pulse Resp B/P (MAP) Pulse Ox O2 O2 Flow FiO2 Time Delivery Rate 11/16/18 18 08:00 11/16/18 98.6 88 126/62 96 08:00 (83) 11/15/18 Room Air 15:10 11/14/18 2.0 07:15 11/13/18 27 04:46 Intake and Output 11/15/18 11/15/18 11/16/18 1515:00 23:00 07:00 IntakeIntake Total 1355 ml 1240 ml 900 ml OutputOutput Total 2040 ml 1920 ml 1810 ml BalanceBalance -685 ml -680 ml -910 ml Results Result Diagram: 11/16/18 0527 11/14/18 0454 Results 24hrs Laboratory Tests Test 11/16/18 05:27 White Blood Count 10.6 # Red Blood Count 2.58 L Hemoglobin 7.3 L Hematocrit 22.4 L Mean Corpuscular Volume 86.8 Mean Corpuscular Hemoglobin 28.3 L Mean Corpuscular Hemoglobin Concent 32.6 Red Cell Distribution Width 14.2 Platelet Count 581 #H Mean Platelet Volume 10.0 Immature Granulocytes % 1.200 H Neutrophils % 73.7 Lymphocytes % 13.1 L Monocytes % 8.2 Eosinophils % 3.5 Basophils % 0.3 Nucleated Red Blood Cells % 0.0 Immature Granulocytes # 0.130 H Neutrophils # 7.8 H Lymphocytes # 1.4 Monocytes # 0.9 Eosinophils # 0.4 Basophils # 0.0 Nucleated Red Blood Cells # 0.0 Medications Medication Current Medications IV Flush (NS 3 ml) 3 ml PER PROTOCOL IV ; Start 11/10/18 at 06:00 Acetaminophen (Tylenol Tab) 650 mg Q6H PRN PO .PAIN 1-3 OR TEMP Last administered on 11/11/18 19:50; Admin Dose 650 MG; Start 11/10/18 at 06:00 Albuterol/ Ipratropium (Duoneb) 3 ml Q2H RESP THERAPY PRN HHN SHORTNESS OF BREATH Last administered on 11/12/18 11:51; Admin Dose 3 ML; Start 11/10/18 at 06:00 Amlodipine Besylate (Norvasc) 5 mg DAILY PO Last administered on 11/16/18 08:55; Admin Dose 5 MG; Start 11/11/18 at 09:00 Levothyroxine Sodium (Synthroid) 50 mcg BEFORE BREAKFAST PO Last administered on 11/16/18 06:27; Admin Dose 50 MCG; Start 11/11/18 at 07:00 Lisinopril (Zestril) 20 mg DAILY PO Last administered on 11/16/18 08:55; Admin Dose 20 MG; Start 11/11/18 at 09:00 Lorazepam (Ativan) 1 mg HS PRN PO ANXIETY Last administered on 11/15/18 22:26; Admin Dose 1 MG; Start 11/12/18 at 13:30 Promethazine HCl/ Codeine (Phenergan/ Codeine) 5 ml Q4H PRN PO COUGH; Start 11/12/18 at 15:00 Loperamide HCl (Imodium Cap) 2 mg QID PRN PO DIARRHEA; Start 11/12/18 at 15:00 Hydromorphone HCl (Dilaudid) 0.5 mg Q6H PRN IV PAIN LEVEL 6-10 Last administered on 11/13/18at 13:47; Admin Dose 0.5 MG; Start 11/12/18 at 19:00; Status Hold Acetaminophen/ Hydrocodone Bitart ([place] ()) 1 tab Q6H PRN PO PAIN Last administered on 11/16/18 06:56; Admin Dose 1 TAB; Start 11/12/18 at 19:00 Ondansetron HCl (Zofran Inj) 4 mg Q6H PRN IV NAUSEA AND/OR VOMITING Last administered on 11/16/18 04:07; Admin Dose 4 MG; Start 11/12/18 at 19:00 Famotidine (Pepcid) 20 mg BID PO Last administered on 11/16/18 08:55; Admin Dose 20 MG; Start 11/12/18 at 21:00 Enoxaparin Sodium (Lovenox) 40 mg DAILY@07 SC Last administered on 11/16/18 06:28; Admin Dose 40 MG; Start 11/13/18 at 07:00 Dextrose/Sodium Chloride 1,000 ml @ 100 mls/hr Q10H IV Last administered on 11/16/18 08:54; Admin Dose 100 MLS/HR; Start 11/13/18 at 10:30 Hydromorphone HCl (Dilaudid CAFETER[employer] MONITOR) 0 MG/HR CONTINUOUS RATE ... Q4PCA IV Last administered on 11/16/18 07:52; Admin Dose 6 MG; Start 11/13/18 at 15:00 Bisacodyl (Dulcolax Supp) 10 mg DAILY PRN [place] CONSTIPATION; Start 11/14/18 at 18:00 Metoclopramide HCl (Reglan) 10 mg Q6H PRN IV NAUSEA Last administered on 11/16/18 06:31; Admin Dose 10 MG; Start 11/14/18 at 18:30 Ceftriaxone Sodium 50 ml @ 100 mls/hr Q24H IVPB Last administered on 11/15/18 12:52; Admin Dose 100 MLS/HR; Start 11/15/18 at 12:30 OLMAN ZARATE NP Nov 16, 2018 12:03
--- NOTE | 2018-11-16 12:35 | CONS ---
Consult Date/Type/Reason Admit Date/Time Nov 10, 2018 at 05:13 Initial Consult Date Type of Consult Pulmonary Requesting Provider: LORI VÁZQUEZ MD, [facility] Date/Time of Note DATE: 11/16/18 TIME: 12:34 Subjective Patient comfortable this morning. Still on IV pain control. Chest tube output greater than 100 cc over 24 hours. Objective Vital Signs Date Temp Pulse Resp B/P (MAP) Pulse Ox O2 O2 Flow FiO2 Time Delivery Rate 11/16/18 18 08:00 11/16/18 98.6 88 126/62 96 08:00 (83) 11/15/18 Room Air 15:10 11/14/18 2.0 07:15 11/13/18 27 04:46 Intake and Output 11/15/18 11/15/18 11/16/18 1515:00 23:00 07:00 IntakeIntake Total 1355 ml 1240 ml 900 ml OutputOutput Total 2040 ml 1920 ml 1810 ml BalanceBalance -685 ml -680 ml -910 ml Exam GENERAL: Well-nourished well-developed gentleman comfortable at rest VITAL SIGNS: per chart NECK: Supple. No JVD or lymphadenopathy. CARDIAC EXAM: S1, S2. No added sounds or murmurs. CHEST: clear bilaterally, No added sounds, rales or wheezes right-sided chest tube in place ABDOMEN: Soft, nontender. No guarding or rebound. EXTREMITIES: No cyanosis, clubbing or edema. NEUROLOGIC: Generalized weakness. No focal deficits. Vent Setting Fraction of Inspired Oxygen pe: 27 Results/Medications Result Diagram: 11/16/18 0527 11/14/18 0454 Results 24 hrs Laboratory Tests Test 11/16/18 05:27 White Blood Count 10.6 # Red Blood Count 2.58 L Hemoglobin 7.3 L Hematocrit 22.4 L Mean Corpuscular Volume 86.8 Mean Corpuscular Hemoglobin 28.3 L Mean Corpuscular Hemoglobin Concent 32.6 Red Cell Distribution Width 14.2 Platelet Count 581 #H Mean Platelet Volume 10.0 Immature Granulocytes % 1.200 H Neutrophils % 73.7 Lymphocytes % 13.1 L Monocytes % 8.2 Eosinophils % 3.5 Basophils % 0.3 Nucleated Red Blood Cells % 0.0 Immature Granulocytes # 0.130 H Neutrophils # 7.8 H Lymphocytes # 1.4 Monocytes # 0.9 Eosinophils # 0.4 Basophils # 0.0 Nucleated Red Blood Cells # 0.0 Medications Current Medications IV Flush (NS 3 ml) 3 ml PER PROTOCOL IV ; Start 11/10/18 at 06:00 Acetaminophen (Tylenol Tab) 650 mg Q6H PRN PO .PAIN 1-3 OR TEMP Last administered on 11/11/18 19:50; Admin Dose 650 MG; Start 11/10/18 at 06:00 Albuterol/ Ipratropium (Duoneb) 3 ml Q2H RESP THERAPY PRN HHN SHORTNESS OF BREATH Last administered on 11/12/18 11:51; Admin Dose 3 ML; Start 11/10/18 at 06:00 Amlodipine Besylate (Norvasc) 5 mg DAILY PO Last administered on 11/16/18 08:55; Admin Dose 5 MG; Start 11/11/18 at 09:00 Levothyroxine Sodium (Synthroid) 50 mcg BEFORE BREAKFAST PO Last administered on 11/16/18 06:27; Admin Dose 50 MCG; Start 11/11/18 at 07:00 Lisinopril (Zestril) 20 mg DAILY PO Last administered on 11/16/18 08:55; Admin Dose 20 MG; Start 11/11/18 at 09:00 Lorazepam (Ativan) 1 mg HS PRN PO ANXIETY Last administered on 11/15/18 22:26; Admin Dose 1 MG; Start 11/12/18 at 13:30 Promethazine HCl/ Codeine (Phenergan/ Codeine) 5 ml Q4H PRN PO COUGH; Start 11/12/18 at 15:00 Loperamide HCl (Imodium Cap) 2 mg QID PRN PO DIARRHEA; Start 11/12/18 at 15:00 Hydromorphone HCl (Dilaudid) 0.5 mg Q6H PRN IV PAIN LEVEL 6-10 Last administered on 11/13/18 13:47; Admin Dose 0.5 MG; Start 11/12/18 at 19:00; Status Hold Acetaminophen/ Hydrocodone Bitart ([place] (10/325)) 1 tab Q6H PRN PO PAIN Last administered on 11/16/18 06:56; Admin Dose 1 TAB; Start 11/12/18 at 19:00 Ondansetron HCl (Zofran Inj) 4 mg Q6H PRN IV NAUSEA AND/OR VOMITING Last administered on 11/16/18 04:07; Admin Dose 4 MG; Start 11/12/18 at 19:00 Famotidine (Pepcid) 20 mg BID PO Last administered on 11/16/18 08:55; Admin Dose 20 MG; Start 11/12/18 at 21:00 Enoxaparin Sodium (Lovenox) 40 mg DAILY@07 SC Last administered on 11/16/18 06:28; Admin Dose 40 MG; Start 11/13/18 at 07:00 Dextrose/Sodium Chloride 1,000 ml @ 100 mls/hr Q10H IV Last administered on 11/16/18 08:54; Admin Dose 100 MLS/HR; Start 11/13/18 at 10:30 Hydromorphone HCl (Dilaudid [employer] SHE[employer] FINISHING PRESS OPERATOR) 0 MG/HR CONTINUOUS RATE ... Q4PCA IV Last administered on 11/16/18 07:52; Admin Dose 6 MG; Start 11/13/18 at 15:00 Bisacodyl (Dulcolax Supp) 10 mg DAILY PRN [place] CONSTIPATION; Start 11/14/18 at 18:00 Metoclopramide HCl (Reglan) 10 mg Q6H PRN IV NAUSEA Last administered on 11/16/18 06:31; Admin Dose 10 MG; Start 11/14/18 at 18:30 Ceftriaxone Sodium 50 ml @ 100 mls/hr Q24H IVPB Last administered on 11/15/18 12:52; Admin Dose 100 MLS/HR; Start 11/15/18 at 12:30 Assessment/Plan Hospital Course (Demo Recall) Assessment 1. Loculated right pleural effusion probable empyema. Status post decortication 2. Resolved leukocytosis 3. Right-sided pleuritic chest pain secondary to above Plan 1. Continue chest tube drainage anticipate chest tube removal soon. 2. Incentive spirometry encourage out of bed 3. Antibiotics per ID. 4. Consider iron replacement. 5. Anticipate discharge soon after chest tube removed. LORI VÁZQUEZ MD, [facility] Nov 16, 2018 12:35
[2018-11-16] MEDS: CEFTRIAXONE 1 GM/50 ML (PMX) 50 ML IVPB SCH (12:45)
[2018-11-16 14:00] VITALS: BP 117/67; PULSE 88; RESP 20
--- NOTE | 2018-11-16 15:39 | PN ---
Date/Time of Note Date/Time of Note DATE: 11/16/18 TIME: 15:38 Assessment/Plan Lines/Catheters IV Catheter Type (from Nrs): Saline Lock Becerril in Place (from Nrs): No Assessment/Plan Assessment/Plan chest tube drained 170cc. strep pneumonia. leave chest tube one more day Exam/Review of Systems Vital Signs Vitals Vital Signs Date Temp Pulse Resp B/P (MAP) Pulse Ox O2 O2 Flow FiO2 Time Delivery Rate 11/16/18 18 12:59 11/16/18 98.6 88 126/62 96 08:00 (83) 11/15/18 Room Air 15:10 11/14/18 2.0 07:15 11/13/18 27 04:46 Intake and Output 11/15/18 11/15/18 11/16/18 1515:00 23:00 07:00 IntakeIntake Total 1355 ml 1240 ml 900 ml OutputOutput Total 2040 ml 1920 ml 1810 ml BalanceBalance -685 ml -680 ml -910 ml Results Result Diagram: 11/16/18 0527 11/14/18 0454 DYLAN FNIN MD Nov 16, 2018 15:39
--- NOTE | 2018-11-16 16:47 | PN ---
Date/Time of Note Date/Time of Note DATE: 11/16/18 TIME: 16:47 Assessment/Plan VTE Prophylaxis Risk score (from Nsg)>0 risk: 5 SCD applied (from Nsg): Yes Pharmacological prophylaxis: heparin Lines/Catheters IV Catheter Type (from Nrsg): Saline Lock Urinary Cath still in place: No Assessment/Plan Hospital Course EXAM Well appeariang NAD AOx3 Breathign comfortably Chest tube in R chest Clear lungs RRR A/P: 58 yo male with h/o COPD presents wtih parapneumonic effusion s/p VATS and chest tube Empyema from pneumonia: - s/p VATS, continue abx per ID, await culture data - Chest tube management per CV surgery - [employer] RECREATION DIRECTOR for pain control ALEKSEY: - Resolved Result Diagram: 11/16/18 0527 11/14/18 0454 Results 24hrs Laboratory Tests Test 11/16/18 05:27 White Blood Count 10.6 # Red Blood Count 2.58 L Hemoglobin 7.3 L Hematocrit 22.4 L Mean Corpuscular Volume 86.8 Mean Corpuscular Hemoglobin 28.3 L Mean Corpuscular Hemoglobin Concent 32.6 Red Cell Distribution Width 14.2 Platelet Count 581 #H Mean Platelet Volume 10.0 Immature Granulocytes % 1.200 H Neutrophils % 73.7 Lymphocytes % 13.1 L Monocytes % 8.2 Eosinophils % 3.5 Basophils % 0.3 Nucleated Red Blood Cells % 0.0 Immature Granulocytes # 0.130 H Neutrophils # 7.8 H Lymphocytes # 1.4 Monocytes # 0.9 Eosinophils # 0.4 Basophils # 0.0 Nucleated Red Blood Cells # 0.0 Subjective 24 Hr Interval Summary Free Text/Dictation Doing well, no complaints. Chest tube drainage slowing down Exam/Review of Systems Exam Vitals Vital Signs Date Temp Pulse Resp B/P (MAP) Pulse Ox O2 O2 Flow FiO2 Time Delivery Rate 11/16/18 98.6 88 20 117/67 90 14:00 (84) 11/15/18 Room Air 15:10 11/14/18 2.0 07:15 11/13/18 27 04:46 Intake and Output 11/15/18 11/15/18 11/16/18 1515:00 23:00 07:00 IntakeIntake Total 1355 ml 1240 ml 900 ml OutputOutput Total 2040 ml 1920 ml 1810 ml BalanceBalance -685 ml -680 ml -910 ml Results Results 24hrs Laboratory Tests Test 11/16/18 05:27 White Blood Count 10.6 # Red Blood Count 2.58 L Hemoglobin 7.3 L Hematocrit 22.4 L Mean Corpuscular Volume 86.8 Mean Corpuscular Hemoglobin 28.3 L Mean Corpuscular Hemoglobin Concent 32.6 Red Cell Distribution Width 14.2 Platelet Count 581 #H Mean Platelet Volume 10.0 Immature Granulocytes % 1.200 H Neutrophils % 73.7 Lymphocytes % 13.1 L Monocytes % 8.2 Eosinophils % 3.5 Basophils % 0.3 Nucleated Red Blood Cells % 0.0 Immature Granulocytes # 0.130 H Neutrophils # 7.8 H Lymphocytes # 1.4 Monocytes # 0.9 Eosinophils # 0.4 Basophils # 0.0 Nucleated Red Blood Cells # 0.0 Medications Medication Current Medications IV Flush (NS 3 ml) 3 ml PER PROTOCOL IV ; Start 11/10/18 at 06:00 Acetaminophen (Tylenol Tab) 650 mg Q6H PRN PO .PAIN 1-3 OR TEMP Last administered on 11/11/18 19:50; Admin Dose 650 MG; Start 11/10/18 at 06:00 Albuterol/ Ipratropium (Duoneb) 3 ml Q2H RESP THERAPY PRN HHN SHORTNESS OF BREATH Last administered on 11/12/18at 11:51; Admin Dose 3 ML; Start 11/10/18 at 06:00 Amlodipine Besylate (Norvasc) 5 mg DAILY PO Last administered on 11/16/18 08: 55; Admin Dose 5 MG; Start 11/11/18 at 09:00 Levothyroxine Sodium (Synthroid) 50 mcg BEFORE BREAKFAST PO Last administered on 11/16/18 06:27; Admin Dose 50 MCG; Start 11/11/18 at 07:00 Lisinopril (Zestril) 20 mg DAILY PO Last administered on 11/16/18 08:55; Admin Dose 20 MG; Start 11/11/18 at 09:00 Lorazepam (Ativan) 1 mg HS PRN PO ANXIETY Last administered on 11/15/18 22:26; Admin Dose 1 MG; Start 11/12/18 at 13:30 Promethazine HCl/ Codeine (Phenergan/ Codeine) 5 ml Q4H PRN PO COUGH; Start 11/12/18 at 15:00 Loperamide HCl (Imodium Cap) 2 mg QID PRN PO DIARRHEA; Start 11/12/18 at 15:00 Hydromorphone HCl (Dilaudid) 0.5 mg Q6H PRN IV PAIN LEVEL 6-10 Last administered on 11/13/18 13:47; Admin Dose 0.5 MG; Start 11/12/18 at 19:00; Status Hold Acetaminophen/ Hydrocodone Bitart ([place] (10/325)) 1 tab Q6H PRN PO PAIN Last administered on 11/16/18 06:56; Admin Dose 1 TAB; Start 11/12/18 at 19:00 Ondansetron HCl (Zofran Inj) 4 mg Q6H PRN IV NAUSEA AND/OR VOMITING Last administered on 11/16/18 12:50; Admin Dose 4 MG; Start 11/12/18 at 19:00 Famotidine (Pepcid) 20 mg BID PO Last administered on 11/16/18 08:55; Admin Dose 20 MG; Start 11/12/18 at 21:00 Enoxaparin Sodium (Lovenox) 40 mg DAILY@07 SC Last administered on 11/16/18 06:28; Admin Dose 40 MG; Start 11/13/18 at 07:00 Dextrose/Sodium Chloride 1,000 ml @ 100 mls/hr Q10H IV Last administered on 11/16/18 08:54; Admin Dose 100 MLS/HR; Start 11/13/18 at 10:30 Hydromorphone HCl (Dilaudid [employer]CREATION DIRECTOR) 0 MG/HR CONTINUOUS RATE ... Q4PCA IV Last administered on 11/16/18 07:52; Admin Dose 6 MG; Start 11/13/18 at 15:00 Bisacodyl (Dulcolax Supp) [address] [place] CONSTIPATION; Start 11/14/18 at 18:00 Metoclopramide HCl (Reglan) 10 mg Q6H PRN IV NAUSEA Last administered on 11/16/18 06:31; Admin Dose 10 MG; Start 11/14/18 at 18:30 Ceftriaxone Sodium 50 ml @ 100 mls/hr Q24H IVPB Last administered on 11/16/18 12:45; Admin Dose 100 MLS/HR; Start 11/15/18 at 12:30 KYLE CHARLTON MD Nov 16, 2018 16:47
[2018-11-16 20:00] VITALS: BP 150/74; PULSE 82; RESP 19
[2018-11-16] MEDS: LORAZEPAM 1 MG TAB PO PRN (20:00)
[2018-11-17] MEDS: ONDANSETRON 4 MG INJ IV PRN ×4 (01:27→23:41)
[2018-11-17 02:00] VITALS: BP 130/74; PULSE 83; RESP 17
[2018-11-17] MEDS: HYDROCODONE/APAP (10/325) TAB PO PRN ×4 (04:29→23:38)
[2018-11-17] MEDS: METOCLOPRAMIDE 10 MG INJ IV PRN ×3 (04:32→20:10)
[2018-11-17] MEDS: HYDROmorphONE 0.2 MG/ML PCA IV SCH ×3 (04:47→20:13)
[2018-11-17] MEDS: DEXTROSE 5%-0.45% NACL 1,000 ML IV SCH ×2 (04:47→15:15)
[2018-11-17] MEDS: LEVOTHYROXINE 50 MCG TAB PO SCH (06:49)
[2018-11-17] MEDS: ENOXAPARIN 40 MG/0.4 ML SYG SC SCH (06:50)
[2018-11-17 07:15] VITALS: BP 139/78; PULSE 91; RESP 16
[2018-11-17] MEDS: FAMOTIDINE 20 MG TAB PO SCH ×2 (08:01→20:06)
[2018-11-17] MEDS: LISINOPRIL 20 MG TAB PO SCH (08:48)
[2018-11-17] MEDS: AMLODIPINE 5 MG TAB PO SCH (08:48)
[2018-11-17] MEDS: CEFTRIAXONE 1 GM/50 ML (PMX) 50 ML IVPB SCH (11:55)
[2018-11-17] MEDS ORDERED: LIDOCAINE 1% (MPF) 5 ML VIAL SC ONE (12:30)
--- NOTE | 2018-11-17 13:11 | CONS ---
Assessment/Plan Assessment/Plan Hospital Course (Demo Recall) Alert, feels good, no fevers Intraoperative culture grew alphahemolytic strep species Antimicrobials: Rocephin Physical examination: Well-nourished well-developed elderly man who is alert in no distress. Head atraumatic normocephalic sclera nonicteric. Neck is supple. Chest rise symmetrical breath sounds with scattered rhonchi on the right. Heart: S1-S2. Abdomen distended soft bowel sounds present. Extremities without cyanosis. Assessment: Strep PNA /empyema status post right VATS procedure 11/12/18 Status post sepsis on admission Hypertension Status post acute kidney injury Plan: Remains stable, will order PICC, pt needs to complete 4 weeks of IV Rocep hin==> last dose on December 10, pending CT removal [facility] staff Consultation Date/Type/Reason Admit Date/Time Nov 10, 2018 at 05:13 Initial Consult Date 11/12/18 Type of Consult id Requesting Provider: LORI VÁZQUEZ MD, [facility] Date/Time of Note DATE: 11/17/18 TIME: 13:10 Exam/Review of Systems Exam Vitals Vital Signs Date Temp Pulse Resp B/P (MAP) Pulse Ox O2 O2 Flow FiO2 Time Delivery Rate 11/17/18 09:38 11/17/18 97.8 91 139/78 93 Room Air 07:15 (98) 11/14/18 2.0 07:15 Intake and Output 11/16/18 11/16/18 11/17/18 1515:00 23:00 07:00 IntakeIntake Total 450 ml 1720 ml 1120 ml OutputOutput Total 350 ml 1330 ml 670 ml BalanceBalance 100 ml 390 ml 450 ml Results Result Diagram: 11/16/18 0527 11/14/18 0454 Results 24hrs Laboratory Tests Test 11/17/18 12:11 Lab Scanned Report REFERENCE LAB Medications Medication Current Medications IV Flush (NS 3 ml) 3 ml PER PROTOCOL IV ; Start 11/10/18 at 06:00 Acetaminophen (Tylenol Tab) 650 mg Q6H PRN PO .PAIN 1-3 OR TEMP Last administered on 11/11/18at 19:50; Admin Dose 650 MG; Start 11/10/18 at 06:00 Albuterol/ Ipratropium (Duoneb) 3 ml Q2H RESP THERAPY PRN HHN SHORTNESS OF BREATH Last administered on 11/12/18 11:51; Admin Dose 3 ML; Start 11/10/18 at 06:00 Amlodipine Besylate (Norvasc) 5 mg DAILY PO Last administered on 11/17/18 08:48; Admin Dose 5 MG; Start 11/11/18 at 09:00 Levothyroxine Sodium (Synthroid) 50 mcg BEFORE BREAKFAST PO Last administered on 11/17/18 06:49; Admin Dose 50 MCG; Start 11/11/18 at 07:00 Lisinopril (Zestril) 20 mg DAILY PO Last administered on 11/17/18 08:48; Admin Dose 20 MG; Start 11/11/18 at 09:00 Lorazepam (Ativan) 1 mg HS PRN PO ANXIETY Last administered on 11/16/18 20:00; Admin Dose 1 MG; Start 11/12/18 at 13:30 Promethazine HCl/ Codeine (Phenergan/ Codeine) 5 ml Q4H PRN PO COUGH; Start 11/12/18 at 15:00 Loperamide HCl (Imodium Cap) 2 mg QID PRN PO DIARRHEA; Start 11/12/18 at 15:00 Hydromorphone HCl (Dilaudid) 0.5 mg Q6H PRN IV PAIN LEVEL 6-10 Last administered on 11/13/18 13:47; Admin Dose 0.5 MG; Start 11/12/18 at 19:00; Status Hold Acetaminophen/ Hydrocodone Bitart ([place] (10/325)) 1 tab Q6H PRN PO PAIN Last administered on 11/17/18 11:15; Admin Dose 1 TAB; Start 11/12/18 at 19:00 Ondansetron HCl (Zofran Inj) 4 mg Q6H PRN IV NAUSEA AND/OR VOMITING Last administered on 11/17/18 07:59; Admin Dose 4 MG; Start 11/12/18 at 19:00 Famotidine (Pepcid) 20 mg BID PO Last administered on 11/17/18 08:01; Admin Dose 20 MG; Start 11/12/18 at 21:00 Enoxaparin Sodium (Lovenox) 40 mg DAILY@07 SC Last administered on 11/17/18 06:50; Admin Dose 40 MG; Start 11/13/18 at 07:00 Dextrose/Sodium Chloride 1,000 ml @ 100 mls/hr Q10H IV Last administered on 11/17/18at 04:47; Admin Dose 100 MLS/HR; Start 11/13/18 at 10:30 Hydromorphone HCl (Dilaudid [employer] HARVESTER) 0 MG/HR CONTINUOUS RATE ... Q4PCA IV Last administered on 11/17/18at 11:50; Admin Dose 6 MG; Start 11/13/18 at 15:00 Bisacodyl (Dulcolax Supp) 10 mg DAILY PRN [place] CONSTIPATION; Start 11/14/18 at 18:00 Metoclopramide HCl (Reglan) 10 mg Q6H PRN IV NAUSEA Last administered on 11/17/18at 11:55; Admin Dose 10 MG; Start 11/14/18 at 18:30 Ceftriaxone Sodium 50 ml @ 100 mls/hr Q24H IVPB Last administered on 11/17/18at 11:55; Admin Dose 100 MLS/HR; Start 11/15/18 at 12:30 OLMAN ZARATE NP Nov 17, 2018 13:11
--- NOTE | 2018-11-17 13:31 | CONS ---
Consult Date/Type/Reason Admit Date/Time Nov 10, 2018 at 05:13 Initial Consult Date Type of Consult Pulmonary Requesting Provider: LORI VÁZQUEZ MD, [facility] Date/Time of Note DATE: 11/17/18 TIME: 13:30 Subjective Patient stable this morning no respiratory distress decreased chest tube output. Objective Vital Signs Date Temp Pulse Resp B/P (MAP) Pulse Ox O2 O2 Flow FiO2 Time Delivery Rate 11/17/18 18 09:38 11/17/18 97.8 91 139/78 93 Room Air 07:15 (98) 11/14/18 2.0 07:15 Intake and Output 11/16/18 11/16/18 11/17/18 1515:00 23:00 07:00 IntakeIntake Total 450 ml 1720 ml 1120 ml OutputOutput Total 350 ml 1330 ml 670 ml BalanceBalance 100 ml 390 ml 450 ml Exam GENERAL: Well-nourished well-developed gentleman comfortable at rest VITAL SIGNS: per chart NECK: Supple. No JVD or lymphadenopathy. CARDIAC EXAM: S1, S2. No added sounds or murmurs. CHEST: clear bilaterally, No added sounds, rales or wheezes right-sided chest tube in place ABDOMEN: Soft, nontender. No guarding or rebound. EXTREMITIES: No cyanosis, clubbing or edema. NEUROLOGIC: Generalized weakness. No focal deficits. Vent Setting Fraction of Inspired Oxygen pe: 27 Results/Medications Result Diagram: 11/16/18 0527 11/14/18 0454 Results 24 hrs Laboratory Tests Test 11/17/18 12:11 Lab Scanned Report REFERENCE LAB Medications Current Medications IV Flush (NS 3 ml) 3 ml PER PROTOCOL IV ; Start 11/10/18 at 06:00 Acetaminophen (Tylenol Tab) 650 mg Q6H PRN PO .PAIN 1-3 OR TEMP Last administered on 11/11/18at 19:50; Admin Dose 650 MG; Start 11/10/18 at 06:00 Albuterol/ Ipratropium (Duoneb) 3 ml Q2H RESP THERAPY PRN HHN SHORTNESS OF BREATH Last administered on 11/12/18at 11:51; Admin Dose 3 ML; Start 11/10/18 at 06:00 Amlodipine Besylate (Norvasc) 5 mg DAILY PO Last administered on 11/17/18at 08:48; Admin Dose 5 MG; Start 11/11/18 at 09:00 Levothyroxine Sodium (Synthroid) 50 mcg BEFORE BREAKFAST PO Last administered on 11/17/18 06:49; Admin Dose 50 MCG; Start 11/11/18 at 07:00 Lisinopril (Zestril) 20 mg DAILY PO Last administered on 11/17/18 08:48; Admin Dose 20 MG; Start 11/11/18 at 09:00 Lorazepam (Ativan) 1 mg HS PRN PO ANXIETY Last administered on 11/16/18 20:00; Admin Dose 1 MG; Start 11/12/18 at 13:30 Promethazine HCl/ Codeine (Phenergan/ Codeine) 5 ml Q4H PRN PO COUGH; Start 11/12/18 at 15:00 Loperamide HCl (Imodium Cap) 2 mg QID PRN PO DIARRHEA; Start 11/12/18 at 15:00 Hydromorphone HCl (Dilaudid) 0.5 mg Q6H PRN IV PAIN LEVEL 6-10 Last administered on 11/13/18 13:47; Admin Dose 0.5 MG; Start 11/12/18 at 19:00; Status Hold Acetaminophen/ Hydrocodone Bitart ([place] (10/325)) 1 tab Q6H PRN PO PAIN Last administered on 11/17/18 11:15; Admin Dose 1 TAB; Start 11/12/18 at 19:00 Ondansetron HCl (Zofran Inj) 4 mg Q6H PRN IV NAUSEA AND/OR VOMITING Last administered on 11/17/18 07:59; Admin Dose 4 MG; Start 11/12/18 at 19:00 Famotidine (Pepcid) 20 mg BID PO Last administered on 11/17/18 08:01; Admin Dose 20 MG; Start 11/12/18 at 21:00 Enoxaparin Sodium (Lovenox) 40 mg DAILY@07 SC Last administered on 11/17/18 06:50; Admin Dose 40 MG; Start 11/13/18 at 07:00 Dextrose/Sodium Chloride 1,000 ml @ 100 mls/hr Q10H IV Last administered on 11/17/18 04:47; Admin Dose 100 MLS/HR; Start 11/13/18 at 10:30 Hydromorphone HCl (Dilaudid DIRECTOR OF VALUATION) 0 MG/HR CONTINUOUS RATE ... Q4PCA IV Last administered on 11/17/18at 11:50; Admin Dose 6 MG; Start 11/13/18 at 15:00 Bisacodyl (Dulcolax Supp) 10 mg DAILY PRN [place] CONSTIPATION; Start 11/14/18 at 18:00 Metoclopramide HCl (Reglan) 10 mg Q6H PRN IV NAUSEA Last administered on 11/17/18at 11:55; Admin Dose 10 MG; Start 11/14/18 at 18:30 Ceftriaxone Sodium 50 ml @ 100 mls/hr Q24H IVPB Last administered on 11/17/18at 11:55; Admin Dose 100 MLS/HR; Start 11/15/18 at 12:30 Assessment/Plan Hospital Course (Demo Recall) Assessment 1. Loculated right pleural effusion probable empyema. Status post decortication 2. Resolved leukocytosis 3. Right-sided pleuritic chest pain secondary to above Plan 1. Anticipate chest tube removal today. 2. Incentive spirometry encourage out of bed 3. Antibiotics per ID. 4. Consider iron replacement. DC home soon. LORI VÁZQUEZ MD, [facility] Nov 17, 2018 13:31
--- NOTE | 2018-11-17 13:35 | PN ---
Date/Time of Note Date/Time of Note DATE: 11/17/18 TIME: 13:34 Assessment/Plan Lines/Catheters IV Catheter Type (from Nrs): Peripheral IV Becerril in Place (from Nrs): No Assessment/Plan Assessment/Plan remove chest tubes. continue iv abx. follow up as outpt in 1-2 weeks. Exam/Review of Systems Vital Signs Vitals Vital Signs Date Temp Pulse Resp B/P (MAP) Pulse Ox O2 O2 Flow FiO2 Time Delivery Rate 11/17/18 09:38 11/17/18 97.8 91 139/78 93 Room Air 07:15 (98) 11/14/18 2.0 07:15 Intake and Output 11/16/18 11/16/18 11/17/18 1515:00 23:00 07:00 IntakeIntake Total 450 ml 1720 ml 1120 ml OutputOutput Total 350 ml 1330 ml 670 ml BalanceBalance 100 ml 390 ml 450 ml Results Result Diagram: 11/16/18 0527 11/14/18 0454 DYLAN FINN MD Nov 17, 2018 13:35
[2018-11-17 14:20] VITALS: BP 133/72; PULSE 95; RESP 18
--- NOTE | 2018-11-17 15:09 | PN ---
Date/Time of Note Date/Time of Note DATE: 11/17/18 TIME: 15:08 Assessment/Plan VTE Prophylaxis Risk score (from Nsg)>0 risk: 3 SCD applied (from Nsg): Yes Pharmacological prophylaxis: heparin Lines/Catheters IV Catheter Type (from Nrsg): PICC Line Central line still needed: Yes Urinary Cath still in place: No Assessment/Plan Hospital Course EXAM Well appeariang NAD AOx3 Breathign comfortably Clear lungs RRR A/P: 58 yo male with h/o COPD presents wtih parapneumonic effusion s/p VATS and chest tube Empyema from pneumonia: - s/p VATS, continue abx per ID, await culture data - Chest tube management per CV surgery - MEDIA OPERATOR for pain control Pneumonia: - 1 month of IV ceftriaxone per ID via PICC ALEKSEY: - Resolved Result Diagram: 11/16/18 0527 11/14/18 0454 Results 24hrs Laboratory Tests Test 11/17/18 12:11 Lab Scanned Report REFERENCE LAB Subjective 24 Hr Interval Summary Free Text/Dictation CT removed today Exam/Review of Systems Exam Vitals Vital Signs Date Temp Pulse Resp B/P (MAP) Pulse Ox O2 O2 Flow FiO2 Time Delivery Rate 11/17/18 98.7 95 18 133/72 97 Room Air 14:20 (92) 11/14/18 2.0 07:15 Intake and Output 11/16/18 11/16/18 11/17/18 1515:00 23:00 07:00 IntakeIntake Total 450 ml 1720 ml 1120 ml OutputOutput Total 350 ml 1330 ml 670 ml BalanceBalance 100 ml 390 ml 450 ml Results Results 24hrs Laboratory Tests Test 11/17/18 12:11 Lab Scanned Report REFERENCE LAB Medications Medication Current Medications IV Flush (NS 3 ml) 3 ml PER PROTOCOL IV ; Start 11/10/18 at 06:00 Acetaminophen (Tylenol Tab) 650 mg Q6H PRN PO .PAIN 1-3 OR TEMP Last administered on 11/11/18at 19:50; Admin Dose 650 MG; Start 11/10/18 at 06:00 Albuterol/ Ipratropium (Duoneb) 3 ml Q2H RESP THERAPY PRN HHN SHORTNESS OF BREATH Last administered on 11/12/18at 11:51; Admin Dose 3 ML; Start 11/10/18 at 06:00 Amlodipine Besylate (Norvasc) 5 mg DAILY PO Last administered on 11/17/18 08:48; Admin Dose 5 MG; Start 11/11/18 at 09:00 Levothyroxine Sodium (Synthroid) 50 mcg BEFORE BREAKFAST PO Last administered on 11/17/18 06:49; Admin Dose 50 MCG; Start 11/11/18 at 07:00 Lisinopril (Zestril) 20 mg DAILY PO Last administered on 11/17/18 08:48; Admin Dose 20 MG; Start 11/11/18 at 09:00 Lorazepam (Ativan) 1 mg HS PRN PO ANXIETY Last administered on 11/16/18 20:00; Admin Dose 1 MG; Start 11/12/18 at 13:30 Promethazine HCl/ Codeine (Phenergan/ Codeine) 5 ml Q4H PRN PO COUGH; Start 11/12/18 at 15:00 Loperamide HCl (Imodium Cap) 2 mg QID PRN PO DIARRHEA; Start 11/12/18 at 15:00 Hydromorphone HCl (Dilaudid) 0.5 mg Q6H PRN IV PAIN LEVEL 6-10 Last administered on 11/13/18 13:47; Admin Dose 0.5 MG; Start 11/12/18 at 19:00; Status Hold Acetaminophen/ Hydrocodone Bitart ([place] (10/325)) 1 tab Q6H PRN PO PAIN Last administered on 11/17/18 11:15; Admin Dose 1 TAB; Start 11/12/18 at 19:00 Ondansetron HCl (Zofran Inj) 4 mg Q6H PRN IV NAUSEA AND/OR VOMITING Last administered on 11/17/18 07:59; Admin Dose 4 MG; Start 11/12/18 at 19:00 Famotidine (Pepcid) 20 mg BID PO Last administered on 11/17/18 08:01; Admin Dose 20 MG; Start 11/12/18 at 21:00 Enoxaparin Sodium (Lovenox) 40 mg DAILY@07 SC Last administered on 11/17/18 06:50; Admin Dose 40 MG; Start 11/13/18 at 07:00 Dextrose/Sodium Chloride 1,000 ml @ 100 mls/hr Q10H IV Last administered on 11/17/18 04:47; Admin Dose 100 MLS/HR; Start 11/13/18 at 10:30 Hydromorphone HCl (Dilaudid MEDIA OPERATOR) 0 MG/HR CONTINUOUS RATE ... Q4PCA IV Last administered on 11/17/18 11:50; Admin Dose 6 MG; Start 11/13/18 at 15:00 Bisacodyl (Dulcolax Supp) 10 mg DAILY PRN [place] CONSTIPATION; Start 11/14/18 at 18:00 Metoclopramide HCl (Reglan) 10 mg Q6H PRN IV NAUSEA Last administered on 11/17/18 11:55; Admin Dose 10 MG; Start 11/14/18 at 18:30 Ceftriaxone Sodium 50 ml @ 100 mls/hr Q24H IVPB Last administered on 11/17/18 11:55; Admin Dose 100 MLS/HR; Start 11/15/18 at 12:30 IV Flush (NS 10 ml) 10 ml PRN PRN IV FLUSH LINE; Start 11/17/18 at 14:00 KYLE CHARLTON MD Nov 17, 2018 15:09
[2018-11-17 20:00] VITALS: BP 124/71; PULSE 93; RESP 18
[2018-11-17] MEDS: LORAZEPAM 1 MG TAB PO PRN (20:06)
[2018-11-18] MEDS: ACETAMINOPHEN 325 MG TAB PO PRN (01:15)
[2018-11-18 02:00] VITALS: BP 143/72; PULSE 91; RESP 17
[2018-11-18] MEDS: DEXTROSE 5%-0.45% NACL 1,000 ML IV SCH (03:38)
[2018-11-18] MEDS: ONDANSETRON 4 MG INJ IV PRN ×2 (05:22→12:14)
[2018-11-18] MEDS: HYDROCODONE/APAP (10/325) TAB PO PRN ×3 (05:22→18:22)
[2018-11-18] MEDS: HYDROmorphONE 0.2 MG/ML PCA IV SCH (06:01)
[2018-11-18] MEDS: ENOXAPARIN 40 MG/0.4 ML SYG SC SCH (06:32)
[2018-11-18] MEDS: LEVOTHYROXINE 50 MCG TAB PO SCH (06:32)
[2018-11-18 07:15] VITALS: BP 126/72; PULSE 87; RESP 16
[2018-11-18] MEDS: AMLODIPINE 5 MG TAB PO SCH (08:38)
[2018-11-18] MEDS: FAMOTIDINE 20 MG TAB PO SCH ×2 (08:39→21:23)
[2018-11-18] MEDS: LISINOPRIL 20 MG TAB PO SCH (08:39)
--- NOTE | 2018-11-18 12:06 | CONS ---
Consult Date/Type/Reason Admit Date/Time Nov 10, 2018 at 05:13 Initial Consult Date Type of Consult Pulmonary Requesting Provider: LORI V[facility]QUEZ MD, [facility] Date/Time of Note DATE: 11/18/18 TIME: 12:03 Subjective Patient comfortable this morning. Continues continues IV pain control. Has moderate anxiety component. Objective Vital Signs Date Temp Pulse Resp B/P (MAP) Pulse Ox O2 O2 Flow FiO2 Time Delivery Rate 11/18/18 18 10:07 11/18/18 98.2 87 126/72 98 Room Air 07:15 (90) 11/14/18 2.0 07:15 Intake and Output 11/17/18 11/17/18 11/18/18 1515:00 23:00 07:00 IntakeIntake Total 700 ml 1400 ml 1300 ml OutputOutput Total 800 ml 525 ml 400 ml BalanceBalance -100 ml 875 ml 900 ml Exam GENERAL: Well-nourished well-developed gentleman comfortable at rest VITAL SIGNS: per chart NECK: Supple. No JVD or lymphadenopathy. CARDIAC EXAM: S1, S2. No added sounds or murmurs. CHEST: clear bilaterally, ABDOMEN: Soft, nontender. No guarding or rebound. EXTREMITIES: No cyanosis, clubbing or edema. NEUROLOGIC: Generalized weakness. No focal deficits. Vent Setting Fraction of Inspired Oxygen pe: 27 Results/Medications Result Diagram: 11/16/18 0527 11/14/18 0454 Results 24 hrs Laboratory Tests Test 11/17/18 12:11 Lab Scanned Report REFERENCE LAB Medications Current Medications IV Flush (NS 3 ml) 3 ml PER PROTOCOL IV ; Start 11/10/18 at 06:00 Acetaminophen (Tylenol Tab) 650 mg Q6H PRN PO .PAIN 1-3 OR TEMP Last administered on 11/18/18at 01:15; Admin Dose 650 MG; Start 11/10/18 at 06:00 Albuterol/ Ipratropium (Duoneb) 3 ml Q2H RESP THERAPY PRN HHN SHORTNESS OF BREATH Last administered on 11/12/18at 11:51; Admin Dose 3 ML; Start 11/10/18 at 06:00 Amlodipine Besylate (Norvasc) 5 mg DAILY PO Last administered on 11/18/18at 08:38; Admin Dose 5 MG; Start 11/11/18 at 09:00 Levothyroxine Sodium (Synthroid) 50 mcg BEFORE BREAKFAST PO Last administered on 11/18/18 06:32; Admin Dose 50 MCG; Start 11/11/18 at 07:00 Lisinopril (Zestril) 20 mg DAILY PO Last administered on 11/18/18 08:39; Admin Dose 20 MG; Start 11/11/18 at 09:00 Lorazepam (Ativan) 1 mg HS PRN PO ANXIETY Last administered on 11/17/18 20:06; Admin Dose 1 MG; Start 11/12/18 at 13:30 Promethazine HCl/ Codeine (Phenergan/ Codeine) 5 ml Q4H PRN PO COUGH; Start 11/12/18 at 15:00 Loperamide HCl (Imodium Cap) 2 mg QID PRN PO DIARRHEA; Start 11/12/18 at 15:00 Hydromorphone HCl (Dilaudid) 0.5 mg Q6H PRN IV PAIN LEVEL 6-10 Last administered on 11/13/18at 13:47; Admin Dose 0.5 MG; Start 11/12/18 at 19:00; Status Hold Acetaminophen/ Hydrocodone Bitart ([place] (10/325)) 1 tab Q6H PRN PO PAIN Last administered on 11/18/18 05:22; Admin Dose 1 TAB; Start 11/12/18 at 19:00 Ondansetron HCl (Zofran Inj) 4 mg Q6H PRN IV NAUSEA AND/OR VOMITING Last administered on 11/18/18 05:22; Admin Dose 4 MG; Start 11/12/18 at 19:00 Famotidine (Pepcid) 20 mg BID PO Last administered on 11/18/18 08:39; Admin Dose 20 MG; Start 11/12/18 at 21:00 Enoxaparin Sodium (Lovenox) 40 mg DAILY@07 SC Last administered on 11/18/18 06:32; Admin Dose 40 MG; Start 11/13/18 at 07:00 Dextrose/Sodium Chloride 1,000 ml @ 100 mls/hr Q10H IV Last administered on 11/18/18 03:38; Admin Dose 100 MLS/HR; Start 11/13/18 at 10:30 Hydromorphone HCl (Dilaudid TRADING FLOOR OPERATOR) 0 MG/HR CONTINUOUS RATE ... Q4PCA IV Last administered on 11/18/18at 06:01; Admin Dose 6 MG; Start 11/13/18 at 15:00 Bisacodyl (Dulcolax Supp) [address] CONSTIPATION; Start 11/14/18 at 18:00 Metoclopramide HCl (Reglan) 10 mg Q6H PRN IV NAUSEA Last administered on 11/17/18at 20:10; Admin Dose 10 MG; Start 11/14/18 at 18:30 Ceftriaxone Sodium 50 ml @ 100 mls/hr Q24H IVPB Last administered on 11/17/18at 11:55; Admin Dose 100 MLS/HR; Start 11/15/18 at 12:30 IV Flush (NS 10 ml) 10 ml PRN PRN IV FLUSH LINE; Start 11/17/18 at 14:00 Assessment/Plan Hospital Course (Demo Recall) Assessment 1. Loculated right pleural effusion probable empyema. Status post decortication 2. Resolved leukocytosis 3. Right-sided pleuritic chest pain secondary to above 4. Iron def anemia. Plan 1. Remains stable following chest tube removal 2. Continue to ambulate 3. po abx ? 4. DC IV narcotics, Xanax for anxiety to p.o. pain meds 5. PO iron DC tomorrow LORI VÁZQUEZ MD, [facility] Nov 18, 2018 12:06
[2018-11-18] MEDS: CEFTRIAXONE 1 GM/50 ML (PMX) 50 ML IVPB SCH (12:15)
[2018-11-18] MEDS ORDERED: FERROUS SULFATE (EC) 325 MG TAB PO SCH (12:30)
[2018-11-18 14:00] VITALS: BP 126/70; PULSE 94; RESP 16
[2018-11-18] MEDS: ALPRAZOLAM 1 MG TAB PO SCH ×2 (14:06→22:13)
[2018-11-18] MEDS ORDERED: KETOROLAC 15 MG INJ IV STA (14:57)
--- NOTE | 2018-11-18 15:00 | PN ---
Date/Time of Note Date/Time of Note DATE: 11/18/18 TIME: 14:59 Assessment/Plan VTE Prophylaxis Risk score (from Nsg)>0 risk: 3 SCD applied (from Nsg): Yes Pharmacological prophylaxis: heparin Lines/Catheters IV Catheter Type (from Nrsg): PICC Line Central line still needed: Yes Urinary Cath still in place: No Assessment/Plan Hospital Course EXAM Well appeariang NAD AOx3 Breathign comfortably Clear lungs RRR A/P: 58 yo male with h/o COPD presents wtih parapneumonic effusion s/p VATS and chest tube Empyema from pneumonia: - s/p VATS, continue abx per ID via PICC - Chest tube removed Pneumonia: - 1 month of IV ceftriaxone per ID via PICC ALEKSEY: - Resolved Result Diagram: 11/16/18 0527 11/14/18 0454 Subjective 24 Hr Interval Summary Free Text/Dictation Chest tube removed MEDICAL TECHNICIAN stopped Having pain today despite norco Exam/Review of Systems Exam Vitals Vital Signs Date Temp Pulse Resp B/P (MAP) Pulse Ox O2 O2 Flow FiO2 Time Delivery Rate 11/18/18 97.9 94 16 126/70 98 Room Air 14:00 (88) 11/14/18 2.0 07:15 Intake and Output 11/17/18 11/17/18 11/18/18 1515:00 23:00 07:00 IntakeIntake Total 700 ml 1400 ml 1300 ml OutputOutput Total 800 ml 525 ml 400 ml BalanceBalance -100 ml 875 ml 900 ml Medications Medication Current Medications IV Flush (NS 3 ml) 3 ml PER PROTOCOL IV ; Start 11/10/18 at 06:00 Acetaminophen (Tylenol Tab) 650 mg Q6H PRN PO .PAIN 1-3 OR TEMP Last administered on 11/18/18at 01:15; Admin Dose 650 MG; Start 11/10/18 at 06:00 Albuterol/ Ipratropium (Duoneb) 3 ml Q2H RESP THERAPY PRN HHN SHORTNESS OF BREATH Last administered on 11/12/18at 11:51; Admin Dose 3 ML; Start 11/10/18 at 06:00 Amlodipine Besylate (Norvasc) 5 mg DAILY PO Last administered on 11/18/18at 08:38; Admin Dose 5 MG; Start 11/11/18 at 09:00 Levothyroxine Sodium (Synthroid) 50 mcg BEFORE BREAKFAST PO Last administered on 11/18/18 06:32; Admin Dose 50 MCG; Start 11/11/18 at 07:00 Lisinopril (Zestril) 20 mg DAILY PO Last administered on 11/18/18 08:39; Admin Dose 20 MG; Start 11/11/18 at 09:00 Lorazepam (Ativan) 1 mg HS PRN PO ANXIETY Last administered on 11/17/18 20:06; Admin Dose 1 MG; Start 11/12/18 at 13:30 Promethazine HCl/ Codeine (Phenergan/ Codeine) 5 ml Q4H PRN PO COUGH; Start 11/12/18 at 15:00 Loperamide HCl (Imodium Cap) 2 mg QID PRN PO DIARRHEA; Start 11/12/18 at 15:00 Hydromorphone HCl (Dilaudid) 0.5 mg Q6H PRN IV PAIN LEVEL 6-10 Last administered on 11/13/18at 13:47; Admin Dose 0.5 MG; Start 11/12/18 at 19:00; Status Hold Acetaminophen/ Hydrocodone Bitart ([place] (10/325)) 1 tab Q6H PRN PO PAIN Last administered on 11/18/18 12:15; Admin Dose 1 TAB; Start 11/12/18 at 19:00 Ondansetron HCl (Zofran Inj) 4 mg Q6H PRN IV NAUSEA AND/OR VOMITING Last administered on 11/18/18 12:14; Admin Dose 4 MG; Start 11/12/18 at 19:00 Famotidine (Pepcid) 20 mg BID PO Last administered on 11/18/18 08:39; Admin Dose 20 MG; Start 11/12/18 at 21:00 Enoxaparin Sodium (Lovenox) 40 mg DAILY@07 SC Last administered on 11/18/18 06:32; Admin Dose 40 MG; Start 11/13/18 at 07:00 Bisacodyl (Dulcolax Supp) 10 mg DAILY PRN [place] CONSTIPATION; Start 11/14/18 at 18:00 Metoclopramide HCl (Reglan) 10 mg Q6H PRN IV NAUSEA Last administered on 11/17/18 20:10; Admin Dose 10 MG; Start 11/14/18 at 18:30 Ceftriaxone Sodium 50 ml @ 100 mls/hr Q24H IVPB Last administered on 11/18/18at 12:15; Admin Dose 100 MLS/HR; Start 11/15/18 at 12:30 IV Flush (NS 10 ml) 10 ml PRN PRN IV FLUSH LINE; Start 11/17/18 at 14:00 Alprazolam (Xanax) 2 mg Q8 PO Last administered on 11/18/18at 14:06; Admin Dose 2 MG; Start 11/18/18 at 14:00 Ketorolac Tromethamine (Toradol) 15 mg ONCE STAT IV ; Start 11/18/18 at 14:57; Stop 11/18/18 at 14:58; Status UNV Ketorolac Tromethamine (Toradol) 15 mg Q6H PRN IV PAIN; Start 11/18/18 at 15:00; Stop 11/21/18 at 14:59; Status UNV KYLE CHARLTON MD Nov 18, 2018 15:00
--- NOTE | 2018-11-18 17:41 | CONS ---
Consultation Date/Type/Reason Admit Date/Time Nov 10, 2018 at 05:13 Initial Consult Date SUBJECTIVE: Pt is awake, alert, afebrile. S/P VATS and Chest tube is removed. VS: stable T: 97.9 LABS: Reviewed. Antimicrobials: Rocephin Physical examination: GEN: Well-nourished well-developed elderly man, who is alert in no distress. HENT: Head atraumatic normocephalic, sclera nonicteric. Neck is supple. PULM: Chest rise symmetrical breath sounds with scattered rhonchi on the right. Heart: S1-S2. Abdomen: distended, soft, bowel sounds present. Extremities: no cyanosis. Assessment: Strep PNA /empyema status post right VATS procedure 11/12/18 Status post sepsis on admission Hypertension Status post acute kidney injury -improved Plan: Pt is stable. PICC line is in place. Needs to complete 4 weeks of IV Rocephin==> last dose on December 10. Requesting Provider: LORI VÁZQUEZ MD, [facility] Date/Time of Note DATE: 11/18/18 TIME: 17:39 Exam/Review of Systems Exam Vitals Vital Signs Date Temp Pulse Resp B/P (MAP) Pulse Ox O2 O2 Flow FiO2 Time Delivery Rate 11/18/18 97.9 94 16 126/70 98 Room Air 14:00 (88) 11/14/18 2.0 07:15 Intake and Output 11/17/18 11/17/18 11/18/18 1515:00 23:00 07:00 IntakeIntake Total 700 ml 1400 ml 1300 ml OutputOutput Total 800 ml 525 ml 400 ml BalanceBalance -100 ml 875 ml 900 ml Results Result Diagram: 11/16/18 0527 11/14/18 0454 Medications Medication Current Medications IV Flush (NS 3 ml) 3 ml PER PROTOCOL IV ; Start 11/10/18 at 06:00 Acetaminophen (Tylenol Tab) 650 mg Q6H PRN PO .PAIN 1-3 OR TEMP Last administered on 11/18/18at 01:15; Admin Dose 650 MG; Start 11/10/18 at 06:00 Albuterol/ Ipratropium (Duoneb) 3 ml Q2H RESP THERAPY PRN HHN SHORTNESS OF BREATH Last administered on 11/12/18at 11:51; Admin Dose 3 ML; Start 11/10/18 at 06:00 Amlodipine Besylate (Norvasc) 5 mg DAILY PO Last administered on 11/18/18 08:38; Admin Dose 5 MG; Start 11/11/18 at 09:00 Levothyroxine Sodium (Synthroid) 50 mcg BEFORE BREAKFAST PO Last administered on 11/18/18 06:32; Admin Dose 50 MCG; Start 11/11/18 at 07:00 Lisinopril (Zestril) 20 mg DAILY PO Last administered on 11/18/18 08:39; Admin Dose 20 MG; Start 11/11/18 at 09:00 Lorazepam (Ativan) 1 mg HS PRN PO ANXIETY Last administered on 11/17/18 20:06; Admin Dose 1 MG; Start 11/12/18 at 13:30 Promethazine HCl/ Codeine (Phenergan/ Codeine) 5 ml Q4H PRN PO COUGH; Start 11/12/18 at 15:00 Loperamide HCl (Imodium Cap) 2 mg QID PRN PO DIARRHEA; Start 11/12/18 at 15:00 Hydromorphone HCl (Dilaudid) 0.5 mg Q6H PRN IV PAIN LEVEL 6-10 Last administered on 11/13/18 13:47; Admin Dose 0.5 MG; Start 11/12/18 at 19:00; Status Hold Acetaminophen/ Hydrocodone Bitart ([place] (10/325)) 1 tab Q6H PRN PO PAIN Last administered on 11/18/18 12:15; Admin Dose 1 TAB; Start 11/12/18 at 19:00 Ondansetron HCl (Zofran Inj) 4 mg Q6H PRN IV NAUSEA AND/OR VOMITING Last administered on 11/18/18 12:14; Admin Dose 4 MG; Start 11/12/18 at 19:00 Famotidine (Pepcid) 20 mg BID PO Last administered on 11/18/18 08:39; Admin Dose 20 MG; Start 11/12/18 at 21:00 Enoxaparin Sodium (Lovenox) 40 mg DAILY@07 SC Last administered on 11/18/18 06:32; Admin Dose 40 MG; Start 11/13/18 at 07:00 Bisacodyl (Dulcolax Supp) 10 mg DAILY PRN [place] CONSTIPATION; Start 11/14/18 at 18:00 Metoclopramide HCl (Reglan) 10 mg Q6H PRN IV NAUSEA Last administered on 11/17/18at 20:10; Admin Dose 10 MG; Start 11/14/18 at 18:30 Ceftriaxone Sodium 50 ml @ 100 mls/hr Q24H IVPB Last administered on 11/18/18at 12:15; Admin Dose 100 MLS/HR; Start 11/15/18 at 12:30 IV Flush (NS 10 ml) 10 ml PRN PRN IV FLUSH LINE; Start 11/17/18 at 14:00 Alprazolam (Xanax) 2 mg Q8 PO Last administered on 11/18/18at 14:06; Admin Dose 2 MG; Start 11/18/18 at 14:00 Ketorolac Tromethamine (Toradol) 15 mg Q6H PRN IV PAIN; Start 11/18/18 at 15:00; Stop 11/21/18 at 14:59 SUKHJINDER PATIÑO Nov 18, 2018 17:41
[2018-11-18 20:13] VITALS: BP 144/69; PULSE 91; RESP 18
[2018-11-19] MEDS: HYDROCODONE/APAP (10/325) TAB PO PRN ×3 (01:03→17:11)
[2018-11-19 02:11] VITALS: BP 122/60; PULSE 70; RESP 16
[2018-11-19] MEDS: KETOROLAC 15 MG INJ IV PRN ×3 (03:29→15:59)
[2018-11-19] MEDS: ALPRAZOLAM 1 MG TAB PO SCH ×2 (05:47→13:26)
[2018-11-19] MEDS: LEVOTHYROXINE 50 MCG TAB PO SCH (06:26)
[2018-11-19] MEDS: ENOXAPARIN 40 MG/0.4 ML SYG SC SCH (06:29)
[2018-11-19 08:00] VITALS: BP 131/60; PULSE 69; RESP 20
[2018-11-19] MEDS: LISINOPRIL 20 MG TAB PO SCH (08:32)
[2018-11-19] MEDS: FAMOTIDINE 20 MG TAB PO SCH (08:32)
[2018-11-19] MEDS: AMLODIPINE 5 MG TAB PO SCH (08:32)
--- NOTE | 2018-11-19 11:11 | CONS ---
Consult Date/Type/Reason Admit Date/Time Nov 10, 2018 at 05:13 Initial Consult Date Type of Consult Pulmonary Requesting Provider: LORI VÁZQUEZ MD, [facility] Date/Time of Note DATE: 11/19/18 TIME: 11:10 Subjective Patient stable. No new events. Anxious to go home. Objective Vital Signs Date Temp Pulse Resp B/P (MAP) Pulse Ox O2 O2 Flow FiO2 Time Delivery Rate 11/19/18 98.2 69 20 131/60 96 08:00 (83) 11/18/18 Room Air 20:13 Intake and Output 11/18/18 11/18/18 11/19/18 1515:00 23:00 07:00 IntakeIntake Total 1500 ml 400 ml 320 ml OutputOutput Total 150 ml BalanceBalance 1350 ml 400 ml 320 ml Exam GENERAL: Well-nourished well-developed gentleman comfortable at rest VITAL SIGNS: per chart NECK: Supple. No JVD or lymphadenopathy. CARDIAC EXAM: S1, S2. No added sounds or murmurs. CHEST: clear bilaterally, ABDOMEN: Soft, nontender. No guarding or rebound. EXTREMITIES: No cyanosis, clubbing or edema. NEUROLOGIC: Generalized weakness. No focal deficits. Vent Setting Fraction of Inspired Oxygen pe: 27 Results/Medications Result Diagram: 11/16/18 0527 Medications Current Medications IV Flush (NS 3 ml) 3 ml PER PROTOCOL IV ; Start 11/10/18 at 06:00 Acetaminophen (Tylenol Tab) 650 mg Q6H PRN PO .PAIN 1-3 OR TEMP Last administered on 11/18/18at 01:15; Admin Dose 650 MG; Start 11/10/18 at 06:00 Albuterol/ Ipratropium (Duoneb) 3 ml Q2H RESP THERAPY PRN HHN SHORTNESS OF BREATH Last administered on 11/12/18at 11:51; Admin Dose 3 ML; Start 11/10/18 at 06:00 Amlodipine Besylate (Norvasc) 5 mg DAILY PO Last administered on 11/19/18at 08:32; Admin Dose 5 MG; Start 11/11/18 at 09:00 Levothyroxine Sodium (Synthroid) 50 mcg BEFORE BREAKFAST PO Last administered on 11/19/18at 06:26; Admin Dose 50 MCG; Start 11/11/18 at 07:00 Lisinopril (Zestril) 20 mg DAILY PO Last administered on 11/19/18 08:32; Admin Dose 20 MG; Start 11/11/18 at 09:00 Lorazepam (Ativan) 1 mg HS PRN PO ANXIETY Last administered on 11/17/18 20:06; Admin Dose 1 MG; Start 11/12/18 at 13:30 Promethazine HCl/ Codeine (Phenergan/ Codeine) 5 ml Q4H PRN PO COUGH; Start 11/12/18 at 15:00 Loperamide HCl (Imodium Cap) 2 mg QID PRN PO DIARRHEA; Start 11/12/18 at 15:00 Hydromorphone HCl (Dilaudid) 0.5 mg Q6H PRN IV PAIN LEVEL 6-10 Last administered on 11/13/18 13:47; Admin Dose 0.5 MG; Start 11/12/18 at 19:00; Status Hold Acetaminophen/ Hydrocodone Bitart ([place] (10/325)) 1 tab Q6H PRN PO PAIN Last administered on 11/19/18 07:31; Admin Dose 1 TAB; Start 11/12/18 at 19:00 Ondansetron HCl (Zofran Inj) 4 mg Q6H PRN IV NAUSEA AND/OR VOMITING Last administered on 11/18/18 12:14; Admin Dose 4 MG; Start 11/12/18 at 19:00 Famotidine (Pepcid) 20 mg BID PO Last administered on 11/19/18 08:32; Admin Dose 20 MG; Start 11/12/18 at 21:00 Enoxaparin Sodium (Lovenox) 40 mg DAILY@07 SC Last administered on 11/19/18 06:29; Admin Dose 40 MG; Start 11/13/18 at 07:00 Bisacodyl (Dulcolax Supp) 10 mg DAILY PRN [place] CONSTIPATION; Start 11/14/18 at 1 8:00 Metoclopramide HCl (Reglan) 10 mg Q6H PRN IV NAUSEA Last administered on 11/17/18 20:10; Admin Dose 10 MG; Start 11/14/18 at 18:30 Ceftriaxone Sodium 50 ml @ 100 mls/hr Q24H IVPB Last administered on 11/18/18 12:15; Admin Dose 100 MLS/HR; Start 11/15/18 at 12:30 IV Flush (NS 10 ml) 10 ml PRN PRN IV FLUSH LINE; Start 11/17/18 at 14:00 Alprazolam (Xanax) 2 mg Q8 PO Last administered on 11/19/18at 05:47; Admin Dose 2 MG; Start 11/18/18 at 14:00 Ketorolac Tromethamine (Toradol) 15 mg Q6H PRN IV PAIN Last administered on 11/19/18at 09:29; Admin Dose 15 MG; Start 11/18/18 at 15:00; Stop 11/21/18 at 14:59 Assessment/Plan Hospital Course (Demo Recall) Assessment 1. Loculated right pleural effusion probable empyema. Status post decortication 2. Resolved leukocytosis 3. Right-sided pleuritic chest pain secondary to above 4. Iron def anemia. Plan 1. Remains stable following chest tube removal 2. Continue to ambulate 3. po abx ? 4. De-escalate pain control. 5. PO iron Agree with DC planning. LORI VÁZQUEZ MD, [facility] Nov 19, 2018 11:11
[2018-11-19] MEDS: CEFTRIAXONE 1 GM/50 ML (PMX) 50 ML IVPB SCH (12:18)
[2018-11-19] MEDS: METOCLOPRAMIDE 10 MG INJ IV PRN (12:28)
[2018-11-19 15:00] VITALS: BP 118/59; PULSE 75; RESP 18
--- NOTE | 2018-11-19 16:54 | CONS ---
Consultation Date/Type/Reason Admit Date/Time Nov 10, 2018 at 05:13 Initial Consult Date SUBJECTIVE: Pt is awake, alert, afebrile. -S/P VATS and Chest tube is removed. VS: stable T: 98.3 LABS: Reviewed. Antimicrobials: Rocephin Physical examination: GEN: Well-nourished well-developed elderly man, who is alert in no distress. HENT: Head atraumatic normocephalic, sclera nonicteric. Neck is supple. PULM: Chest rise symmetrical breath sounds with scattered rhonchi on the right. Heart: S1-S2. Abdomen: distended, soft, bowel sounds present. Extremities: no cyanosis. Assessment: Strep PNA /empyema status post right VATS procedure 11/12/18 Status post sepsis on admission Hypertension Status post acute kidney injury -improved Plan: Pt is stable. PICC line is in place. Needs to complete 4 weeks of IV Rocephin==> last dose on December 10. Pending DC. Requesting Provider: LORI VÁZQUEZ MD, [facility] Date/Time of Note DATE: 11/19/18 TIME: 16:53 Exam/Review of Systems Exam Vitals Vital Signs Date Temp Pulse Resp B/P (MAP) Pulse Ox O2 O2 Flow FiO2 Time Delivery Rate 11/19/18 98.3 75 18 118/59 96 15:00 (78) 11/18/18 Room Air 20:13 Intake and Output 11/18/18 11/18/18 11/19/18 1515:00 23:00 07:00 IntakeIntake Total 1500 ml 400 ml 320 ml OutputOutput Total 150 ml BalanceBalance 1350 ml 400 ml 320 ml Results Result Diagram: 11/16/18 0527 Medications Medication Current Medications IV Flush (NS 3 ml) 3 ml PER PROTOCOL IV ; Start 11/10/18 at 06:00 Acetaminophen (Tylenol Tab) 650 mg Q6H PRN PO .PAIN 1-3 OR TEMP Last administered on 11/18/18at 01:15; Admin Dose 650 MG; Start 11/10/18 at 06:00 Albuterol/ Ipratropium (Duoneb) 3 ml Q2H RESP THERAPY PRN HHN SHORTNESS OF BREATH Last administered on 11/12/18at 11:51; Admin Dose 3 ML; Start 11/10/18 at 06:00 Amlodipine Besylate (Norvasc) 5 mg DAILY PO Last administered on 11/19/18 08:32; Admin Dose 5 MG; Start 11/11/18 at 09:00 Levothyroxine Sodium (Synthroid) 50 mcg BEFORE BREAKFAST PO Last administered on 11/19/18 06:26; Admin Dose 50 MCG; Start 11/11/18 at 07:00 Lisinopril (Zestril) 20 mg DAILY PO Last administered on 11/19/18 08:32; Admin Dose 20 MG; Start 11/11/18 at 09:00 Lorazepam (Ativan) 1 mg HS PRN PO ANXIETY Last administered on 11/17/18 20:06; Admin Dose 1 MG; Start 11/12/18 at 13:30 Promethazine HCl/ Codeine (Phenergan/ Codeine) 5 ml Q4H PRN PO COUGH; Start 11/12/18 at 15:00 Loperamide HCl (Imodium Cap) 2 mg QID PRN PO DIARRHEA; Start 11/12/18 at 15:00 Hydromorphone HCl (Dilaudid) 0.5 mg Q6H PRN IV PAIN LEVEL 6-10 Last administered on 11/13/18 13:47; Admin Dose 0.5 MG; Start 11/12/18 at 19:00; Status Hold Acetaminophen/ Hydrocodone Bitart ([place] (10/325)) 1 tab Q6H PRN PO PAIN Last administered on 11/19/18 07:31; Admin Dose 1 TAB; Start 11/12/18 at 19:00 Ondansetron HCl (Zofran Inj) 4 mg Q6H PRN IV NAUSEA AND/OR VOMITING Last administered on 11/18/18 12:14; Admin Dose 4 MG; Start 11/12/18 at 19:00 Famotidine (Pepcid) 20 mg BID PO Last administered on 11/19/18 08:32; Admin Dose 20 MG; Start 11/12/18 at 21:00 Enoxaparin Sodium (Lovenox) 40 mg DAILY@07 SC Last administered on 11/19/18 06:29; Admin Dose 40 MG; Start 11/13/18 at 07:00 Bisacodyl (Dulcolax Supp) 10 mg DAILY PRN [place] CONSTIPATION; Start 11/14/18 at 18:00 Metoclopramide HCl (Reglan) 10 mg Q6H PRN IV NAUSEA Last administered on 11/19/18at 12:28; Admin Dose 10 MG; Start 11/14/18 at 18:30 Ceftriaxone Sodium 50 ml @ 100 mls/hr Q24H IVPB Last administered on 11/19/18at 12:18; Admin Dose 100 MLS/HR; Start 11/15/18 at 12:30 IV Flush (NS 10 ml) 10 ml PRN PRN IV FLUSH LINE; Start 11/17/18 at 14:00 Alprazolam (Xanax) 2 mg Q8 PO Last administered on 11/19/18at 13:26; Admin Dose 2 MG; Start 11/18/18 at 14:00 Ketorolac Tromethamine (Toradol) 15 mg Q6H PRN IV PAIN Last administered on 11/19/18at 15:59; Admin Dose 15 MG; Start 11/18/18 at 15:00; Stop 11/21/18 at 14:59 SUKHJINDER PATIÑO Nov 19, 2018 16:54
--- NOTE | 2018-11-19 17:56 | PDOCDIS ---
Discharge Instructions DIAGNOSIS Discharge Diagnosis Empyema CONDITION 2 [id number] Patient Condition: [id number] Stable FOLLOW UP/APPOINTMENTS Follow-up Plan Make an appointment to see Dr Dickey in clinic for a follow up visit. His office number is KYLE CHARLTON MD Nov 19, 2018 17:56
--- NOTE | 2018-11-19 17:57 | DS ---
Date/Time of Note Date/Time of Note DATE: 11/19/18 TIME: 17:56 Discharge Summary Admission/Discharge Info Admit Date/Time Nov 10, 2018 at 05:13 Discharge Date/Time Discharge Diagnosis Empyema Patient Condition: Stable Hospital Course 58 yo male with h/o COPD presented wtih parapneumonic effusion on CXR. He was treated wtih IV antibiotics. Dr Dickey took patient to OR and performed decortication with drainage of empyema. Cultres grew [place] sensitive strep. He continued with chest tube drainage for a few days with dilaudid [employer] for pain control. He was discharged home to completed antibiotics course. Home Meds Reported Medications Lorazepam* (Lorazepam*) 1 Mg Tablet, 1 MG PO HS PRN for ANXIETY, #30 TAB 11/10/18 Amlodipine Besylate* (Norvasc*) 5 Mg Tablet, 5 MG PO DAILY, TAB 11/10/18 Levothyroxine Sodium* (Levothyroxine Sodium*) 50 Mcg Tablet, 50 MCG PO BEFORE BREAKFAST, #30 TAB 11/10/18 Lisinopril* (Lisinopril*) 20 Mg Tablet, 20 MG PO DAILY, #30 TAB 11/10/18 Omeprazole* (Omeprazole*) 40 Mg Capsule., 40 MG PO DAILY 11/22/13 Follow-up Plan Make an appointment to see Dr Dickey in clinic for a follow up visit. His office number is Primary Care Provider Care Physician KYLE Zhao MD Nov 19, 2018 17:57
[2018-11-19] MEDS ORDERED: LEVO750T8 PO (18:10)
[2018-11-19] MEDS ORDERED: LEVO750T25 PO ×2 (18:10→18:11)
== END 2018-11-19 19:42 | disposition home or self-care (01) | DRG 853 ==
LOC: E/R 04:49 → 2NE 05:13 → EDBEDREQSVC 16:08 → EDBEDREQ 16:08 → ICU 11-12 18:15 → PP2 11-14 13:41
PROVIDERS: ADMIT Internal Medicine; ATTEND Internal Medicine
PROC: 0BNC4ZZ Release Right Upper Lung Lobe, Percutaneous Endoscopic Approach (ICD-10-PCS; 2018-11-12)
PROC: 0BND4ZZ Release Right Middle Lung Lobe, Percutaneous Endoscopic Approach (ICD-10-PCS; 2018-11-12)
PROC: 0BNT4ZZ Release Diaphragm, Percutaneous Endoscopic Approach (ICD-10-PCS; 2018-11-12)
PROC: 01583ZZ Destruction of Thoracic Nerve, Percutaneous Approach (ICD-10-PCS; 2018-11-12)
PROC: 0BJ08ZZ Inspection of Tracheobronchial Tree, Via Natural or Artificial Opening Endoscopic (ICD-10-PCS; 2018-11-12)
PROC: 0W9930Z Drainage of Right Pleural Cavity with Drainage Device, Percutaneous Approach (ICD-10-PCS; 2018-11-12)
PROC: 0BNF4ZZ Release Right Lower Lung Lobe, Percutaneous Endoscopic Approach (ICD-10-PCS; principal; 2018-11-12 16:00)
PROC: 02HV33Z Insertion of Infusion Device into Superior Vena Cava, Percutaneous Approach (ICD-10-PCS; 2018-11-17)
DX: A41.9 Sepsis, unspecified organism (principal); J86.9 Pyothorax without fistula; J15.4 Pneumonia due to other streptococci; J90 Pleural effusion, not elsewhere classified; N17.9 Acute kidney failure, unspecified; R65.20 Severe sepsis without septic shock; D50.9 Iron deficiency anemia, unspecified; G89.29 Other chronic pain; I10 Essential (primary) hypertension; K21.9 Gastro-esophageal reflux disease without esophagitis; M54.9 Dorsalgia, unspecified; R06.03 Acute respiratory distress; Z87.891 Personal history of nicotine dependence
CPT/HCPCS: 36569; 36600; 71045; 71046; 71250; 76604; 76937; 80048; 80053; 80061; 82550; 82553; 82728; 82803; 82962; 83036; 83540; 83735; 84443; 84484; 85014; 85018; 85025; 85610; 86635; 86703; 86850; 86900; 86901; 86920; 87070; 87077; 87081; 87086; 87102; 88305; 93306; 94640; 97116; 97162; 97530; J0131; J0456; J0692; J0696; J1170; J1650; J1885; J2060; J2185; J2250; J2270; J2405; J2765; J3010; J3475; J3480; J7030; J7040; J7042; J7050

== ENCOUNTER 2019-02-06 07:25 | Day surgery (SDC) | payer OTHER ==
[~2019-02-06] VITALS: Ht 172.7 cm; Wt 67.7 kg
[~2019-02-06 07:25] MED LIST changes: +AMLO5TAB4 PO; +LEVO50TA7 PO; +LEVO750T25 PO; +LEVO750T8 PO; -LISI-313 PO; +LISI-471 PO; +LORA1TAB PO; -TEMA15CA PO
[2019-02-06] MEDS ORDERED: vitamins (09:12)
[2019-02-06] MEDS ORDERED: fiber supplement (09:12)
[2019-02-06] MEDS ORDERED: aspirin (09:12)
[2019-02-06 09:13] VITALS: Ht 172.7 cm; Wt 67.7 kg
[2019-02-06] MEDS ORDERED: MIDAZOLAM 1 MG/ML 2 ML INJ ONE ×2 (09:24→09:25)
[2019-02-06 09:25] VITALS: BP 144/79; PULSE 51; RESP 16
[2019-02-06] MEDS ORDERED: FENTAnyl 50 MCG/ML VIAL ONE ×3 (09:25→09:34)
--- NOTE | 2019-02-06 09:28 | PREAC ---
Date/Time of Note Date/Time of Note DATE: 02/06/19 TIME: : Anesthesia Eval and Record Evaluation Time Pre-Procedure Interview DATE: 02/06/19 TIME: : Age 58 Sex male NPO: 8 hrs Preoperative diagnosis colon polyps Planned procedure screening Past Medical History Past Medical History: Includes Cardio: HTN Endo: Hypothyroid Surgery & Anesthesia Issues No known issue Meds Anticoagulation: No Beta Crissy within 24 hr: No Reason Beta Crissy not given: Pt. not on B-Crissy Reported Medications [fiber supplement] No Conflict Check 02/06/19 [vitamins] No Conflict Check 02/06/19 [aspirin] No Conflict Check 02/06/19 Amlodipine Besylate* (Norvasc*) 5 Mg Tablet, 5 MG PO DAILY, TAB 11/10/18 Levothyroxine Sodium* (Levothyroxine Sodium*) 50 Mcg Tablet, 50 MCG PO BEFORE BREAKFAST, #30 TAB 11/10/18 Lisinopril* (Lisinopril*) 20 Mg Tablet, 20 MG PO DAILY, #30 TAB 11/10/18 Omeprazole* (Omeprazole*) 40 Mg Capsule.dr, 40 MG PO DAILY 11/22/13 Discontinued Reported Medications Levofloxacin* (Levaquin*) 750 Mg Tablet, 750 MG PO DAILY, #7 TAB 11/19/18 Levofloxacin* (Levofloxacin*) 750 Mg Tablet, 750 MG PO DAILY, #7 TAB 11/19/18 Levofloxacin* (Levaquin*) 750 Mg Tablet, 750 MG PO DAILY, #7 TAB 11/19/18 Lorazepam* (Lorazepam*) 1 Mg Tablet, 1 MG PO HS PRN for ANXIETY, #30 TAB 11/10/18 Meds reviewed: Yes Allergies Coded Allergies: No Known Allergy (Unverified , 02/06/19) Allergies Reviewed: Yes Labs/Studies Labs Reviewed: Reviewed by anesthesiologist test: N/A Pre-procedure Exam Airway: Adequate mouth opening, Adequate thyromental dist Mallampati: Mallampati III Teeth: Normal Lung: Normal Heart: Normal ASA Physical Status ASA physical status: 3 Emergency: None Pre-operative Attestations Prior to commencing anesthesia and surgery, the patient was re-evaluated, there was verification of: *The patient's identity *The results of appropriate recent lab work and preoperative vital signs *The above evaluation not changing prior to induction *Anesthetic plan, risk benefits, alternative and complications discussed with patient/family; questions answered; patient/family understands, accepts and wishes to proceed. CHELSEY PUGH DO Feb 06, 2019 09:28
--- NOTE | 2019-02-06 10:09 | PAC ---
Date/Time of Note Date/Time of Note DATE: 02/06/19 TIME: 10:09 Post-Anesthesia Notes Post-Anesthesia Note Last documented vital signs 120/65 100 18 98 15 Activity: WNL Respiratory function: WNL Cardiovascular function: WNL Mental status: Baseline Pain reasonably controlled: Yes Hydration appropriate: Yes Nausea/Vomiting absent: Yes CHELSEY PUGH DO Feb 06, 2019 10:09
[2019-02-06 10:25] VITALS: BP 135/80; PULSE 50; RESP 20
== END 2019-02-06 11:46 | disposition home or self-care (01) ==
LOC: GIL 07:25
PROVIDERS: ATTEND Internal Medicine Gastroenterology
DX: Z86.010 Personal history of colon polyps (principal); K64.4 Residual hemorrhoidal skin tags; K57.30 Diverticulosis of large intestine without perforation or abscess without bleeding; I10 Essential (primary) hypertension; E03.9 Hypothyroidism, unspecified
CPT/HCPCS: 45378; J2250; J3010